=== PATIENT | female | born 1955 | race Caucasian/White ===

== ENCOUNTER 2019-11-23 09:40 | Outpatient (CLI) | payer BC, SELFPAY ==
--- NOTE | 2019-11-23 11:00 | NEURO_ITS ---
Patient Number: [id number] Impression: # Complains of bilateral hand paresthesia, left more than right. # No Carpal Tunnel Syndrome. # Left ulnar neuropathy across the elbow. # Normal needle/EMG exam. Nerve Conduction Studies Anti Sensory Summary Table Stim Site NR Peak (ms) P-T Amp (?V) Site1 Site2 Delta-P (ms) Dist (cm) Shawn (m/s) Left Median Anti Sensory (2-3nd Digit) Wrist 2.9 50.8 Wrist 2-3nd Digit 2.9 14.0 48 Wrist 3.1 68.8 Wrist 2-3nd Digit 2.9 14.0 48 Right Median Anti Sensory (2-3nd Digit) Wrist 2.8 45.3 Wrist 2-3nd Digit 2.8 14.0 50 Wrist 2.8 55.0 Wrist 2-3nd Digit 2.8 14.0 50 Left Radial Anti Sensory (Base 1st Digit) Wrist 2.2 13.0 Wrist Base 1st Digit 2.2 0.0 Right Radial Anti Sensory (Base 1st Digit) Wrist 2.2 11.3 Wrist Base 1st Digit 2.2 0.0 Left Ulnar Anti Sensory (5th Digit) Wrist 2.8 42.0 Wrist 5th Digit 2.8 14.0 50 Right Ulnar Anti Sensory (5th Digit) Wrist 2.9 58.6 Wrist 5th Digit 2.9 14.0 48 Motor Summary Table Stim Site NR Onset (ms) O-P Amp (mV) Site1 Site2 Delta-0 (ms) Dist (cm) Shawn (m/s) Left Median Motor (Abd Poll Brev) Wrist 3.5 2.2 Elbow Wrist 5.4 29.0 54 Elbow 8.9 1.9 Right Median Motor (Abd Poll Brev) Wrist 3.4 4.1 Elbow Wrist 4.7 27.0 57 Elbow 8.1 2.8 Left Ulnar Motor (Abd Dig Minimi) Wrist 2.7 7.0 A Elbow Wrist 5.7 28.0 49 A Elbow 8.4 5.5 B Elbow Wrist 3.7 21.0 57 B Elbow 6.4 5.0 Right Ulnar Motor (Abd Dig Minimi) Wrist 3.2 6.7 A Elbow Wrist 4.8 27.0 56 A Elbow 8.0 6.1 F Wave Studies NR F-Lat (ms) L-R F-Lat (ms) Left Median (Mrkrs) (Abd Poll Brev) 26.63 0.21 Right Median (Mrkrs) (Abd Poll Brev) 26.84 0.21 Left Ulnar (Mrkrs) (Abd Dig Min) 27.50 0.37 Right Ulnar (Mrkrs) (Abd Dig Min) 27.87 0.37 EMG Side Muscle Nerve Root Ins Act Fibs Amp Dur Recrt Comment Right 1stDorInt Ulnar C8-T1 Nml Nml Nml Nml Nml Right Ext Indicis Radial (Post Int) C7-8 Nml Nml Nml Nml Nml Right Ext Digitorum Radial (Post Int) C7-8 Nml Nml Nml Nml Nml Right BrachioRad Radial C5-6 Nml Nml Nml Nml Nml Right PronatorTeres Median C6-7 Nml Nml Nml Nml Nml Right Abd Poll Brev Median C8-T1 Nml Nml Nml Nml Nml Left 1stDorInt Ulnar C8-T1 Nml Nml Nml Nml Nml Left Ext Indicis Radial (Post Int) C7-8 Nml Nml Nml Nml Nml Left Ext Digitorum Radial (Post Int) C7-8 Nml Nml Nml Nml Nml Left BrachioRad Radial C5-6 Nml Nml Nml Nml Nml Left PronatorTeres Median C6-7 Nml Nml Nml Nml Nml Left Abd Poll Brev Median C8-T1 Nml Nml Nml Nml Nml MTDD
== END 2019-11-23 09:41 | disposition home or self-care (01) ==
PROVIDERS: PCP Internal Medicine; Visit Provider Psychiatry & Neurology Neurology
DX: R20.2 Paresthesia of skin (principal); G56.22 Lesion of ulnar nerve, left upper limb
CPT/HCPCS: 95886; 95911

== ENCOUNTER 2021-09-22 07:12 | Outpatient (CLI) | payer MEDICARE, SELFPAY ==
--- NOTE | ~2021-09-22 | NM_ITS ---
EXAMINATION: NM bone 3 phase DATE: 09/22/2021 10:25 INDICATION: Left knee pain. TECHNIQUE: 25 mCi Tc-99m HDP was administered intravenously. Scintigrams of the knees were obtained i n angiographic, blood pool, and delayed phases. COMPARISON: Left knee radiograph 09/22/21 FINDINGS: There are bilateral total knee arthroplasties. There is increased activity in the distal fe gracia, proximal tibiae, and left patella adjacent to the arthroplasties on the delayed phase images. IMPRESSION: 1. Increased activity in the knees adjacent to the arthroplasties, which is nonspecific and can be a normal finding or can be seen with loosening or infection. The left knee radiographs demonstrate no periprosthetic lucency to suggest loosening or infection. Reviewed, dictated and finalized at location A. IMPRESSION: 1. Increased activity in the knees adjacent to the arthroplasties, which is no nspecific and can be a normal finding or can be seen with loosening or infectio n. The left knee radiographs demonstrate no periprosthetic lucency to suggest l oosening or infection.
--- NOTE | ~2021-09-22 | XR_ITS ---
XR knee LT min 4V 09/22/2021 10:47 Indication: Left knee pain Procedure: 4 views left knee Comparison: No prior studies for comparison. Findings: There is a left total knee arthroplasty. Prosthesis well seated without evidence for loosen ing. No significant joint effusion. No acute fracture or traumatic malalignment. There is suggestion of heterotopic ossification along the posterior margin of the femur distally. Impression: 1: No acute bone or joint abnormality. Reviewed, dictated and finalized at location B. Impression: 1: No acute bone or joint abnormality.
== END 2021-09-22 07:13 | disposition home or self-care (01) ==
LOC: ANHIMG 07:21
PROVIDERS: PCP Internal Medicine
DX: M25.562 Pain in left knee (principal); T84.9XXA Unspecified complication of internal orthopedic prosthetic device, implant and graft, initial encounter
CPT/HCPCS: 73564; 78315; A9561

== ENCOUNTER 2021-09-24 13:46 | Outpatient (CLI) | payer MEDICARE, SELFPAY ==
--- NOTE | ~2021-09-24 | US_ITS ---
US venous doppler [facility] DATE: 09/24/2021 14:44 INDICATION: Left knee pain for 2 months TECHNIQUE: Real-time and color flow imaging and Doppler analysis COMPARISON: None FINDINGS: The greater saphenous vein is patent. There is spontaneous and phasic flow and normal augme ntation and color flow signal and normal compression of the deep veins of the left leg. IMPRESSION: No evidence of deep venous thrombosis of left leg Reviewed, dictated and finalized at Location A. Reviewed, dictated and finalized at location A.
== END 2021-09-24 13:47 | disposition home or self-care (01) ==
LOC: ANHIMG 13:47
PROVIDERS: PCP Internal Medicine
DX: M25.562 Pain in left knee (principal); G89.29 Other chronic pain; I83.893 Varicose veins of bilateral lower extremities with other complications
CPT/HCPCS: 93971

== ENCOUNTER 2022-06-08 06:26 | Emergency (ER) | payer MEDICARE, SELFPAY ==
--- NOTE | ~2022-06-08 | XR_ITS ---
XR chest 2V 06/08/2022 08:07 Indication: Shortness of breath with fever Procedure: PA and lateral views of the chest Comparison: 12/09/2015 Findings: Chronic elevation of the right diaphragm. Heart size normal. No focal air space disease, pu lmonary edema, pleural effusion or suspected pneumothorax. Impression: 1: No acute cardiopulmonary disease. Reviewed, dictated and finalized at location B. HOUSE WORKER Impression: 1: No acute cardiopulmonary disease.
[2022-06-08 06:30] VITALS: BP 183/95; PULSE 147; RESP 16; TEMP 39; O2SAT 100
[2022-06-08 07:00] VITALS: BP 163/94; PULSE 121; RESP 23; O2SAT 97
[2022-06-08 07:28] VITALS: BP 163/94; PULSE 123; RESP 18; O2SAT 96
[2022-06-08 07:32] LABS: Influenza A QL RT-PCR Negative (Negative); Influenza B QL RT-PCR Negative (Negative); SARS-CoV-2 RNA PCR Negative
[2022-06-08 07:58] LABS: Basophils Absolute Auto 0.1 K/mm3 (0.0-0.1); Basophils Percent Auto 0.9 % (0.2-1.2); Eosinophils Absolute Auto 0.1 K/mm3 (0-0.3); Eosinophils Percent Auto 0.5 % (0-4.4); Hematocrit 44.6 % (37.0-47.0); Hemoglobin 14.5 g/dL (12.0-15.0); Immature Granulocyte Absolute 0.06 K/mm3 (0.00-0.031); Immature Granulocyte Percent A 0.4 % (0-0.5); Lymphocytes Absolute Auto 1.36 K/mm3 (0.9-3.2); Mean Corpuscular HGB Conc 32.5 g/dl (32-36); Mean Corpuscular Volume 104.7 fl (80-100); Mean Platelet Volume 9.7 fl (7.4-10.4); Monocytes Absolute Auto 1.6 K/mm3 (0.1-0.6); Monocytes Percent Auto 11.8 % (2.6-8.5); Neutrophils Absolute Auto 10.4 K/mm3 (1.3-6.7); Neutrophils Percent Auto 76.4 % (45.5-73.1); Platelet Count Result 332 k/mm3 (150-375); Red Blood Count 4.26 M/mm3 (4.2-5.4); Red Cell Distribution Width 15.3 % (11.5-14.5); White Blood Count 13.6 K/mm3 (4.5-10.0)
[2022-06-08 08:06] LABS: Appearance Urine Clear (Clear); Bilirubin Urine Negative (Negative); Blood Urine Negative (Negative); Color Urine Yellow (Yellow); Glucose Urine UA Negative (Negative); Ketones Urine Negative (Negative); Leukocyte Esterase Ur Trace LEU/UL (Negative); Nitrate Urine Negative (Negative); Protein Urine Negative (Negative); Specific Grav Ur 1.015 (1.001-1.035); Urobilinogen Urine 0.2 mg/dL (<2.0); pH Urine 6.5 (5.0-9.0)
[2022-06-08] MEDS: SODIUM CHLORIDE 0.9% IV 1,000 ML 999 ML IV CONT (08:09)
[2022-06-08] MEDS: KETOROLAC 15 MG/ML VIAL (*BKC) IV PUSH (08:11)
[2022-06-08 08:13] VITALS: BP 137/88; PULSE 114; RESP 20; O2SAT 97
[2022-06-08 08:18] LABS: Add Urine Microscopic? NO
[2022-06-08 09:25] LABS: Alanine Aminotransferase 39 U/L (6-35); Albumin Level 4.1 g/dL (3.5-5.1); Alkaline Phosphatase 75 U/L (38-126); Anion Gap 1 mmol/L (8-16); Aspartate Amino Transferase 35 U/L (14-36); Bilirubin,Total 0.5 mg/dL (0.2-1.3); Blood Urea Nitrogen 8 mg/dL (7-17); Calcium 8.2 mg/dL (8.4-10.2); Carbon Dioxide 28 mmol/L (22-30); Chloride 109 mmol/L (98-107); Estimated CRCL calculation 75 ml/min; Estimated Glomerular Filt Rate > 60; Glucose 89 mg/dL (65-110); Lipase 108 U/L (23-300); Potassium 4.2 mmol/L (3.4-5.0); Sodium 138 mmol/L (137-145)
--- NOTE | 2022-06-08 10:16 | ED.FEVER ---
HPI - Fever General Chief Complaint: Fever Stated Complaint: body aches, fever that started today Time Seen by Provider: 06/08/22 07:01 History of Present Illness HPI Narrative: Patient is a 67-year-old female who presents ER with flulike symptoms. Patient woke up this morning with high fever of 105.0 ?F. She is having runny nose and sinus congestion. No cough. She has diffuse body aches. No numbness or tingling. No chest pain or chest pressure. Patient does report some shortness of breath. She also has exertional fatigue. Patient does reports mild throbbing headache temporal and frontal. [place] like she woke up with a migraine as well and took her home medication (ubrogepant). Related Data Home Medications Medication Instructions Recorded Confirmed aspirin 81 mg chewable tablet 81 mg PO DAILY 12/31/20 07/15/21 bimatoprost 0.01 % eye drops 1 drp EACH EYE DAILY 12/31/20 07/15/21 (Lumigan) diphenhydramine 25 1 tablet PO QHS PRN 12/31/20 07/15/21 mg-acetaminophen 500 mg tablet (Tylenol PM Extra Strength) esomeprazole magnesium 40 mg 40 mg PO DAILY 12/31/20 07/15/21 capsule,delayed release (Nexium) folic acid 1 mg tablet 1 mg PO DAILY 12/31/20 07/15/21 levothyroxine 100 mcg tablet 100 mcg PO DAILY 12/31/20 07/15/21 (Synthroid) linaclotide 290 mcg capsule 290 mcg PO DAILY 12/31/20 07/15/21 (Linzess) prednisone 5 mg tablet 5 mg PO BID 12/31/20 07/15/21 alendronate 70 mg tablet (Fosamax) 70 mg PO WEEKLY 07/02/21 07/15/21 atorvastatin 20 mg tablet 20 mg PO DAILY 07/02/21 07/15/21 calcium carb 300 mg-D3 800 1 tablet PO DAILY 07/02/21 07/15/21 unit-mag ox 25 mg-helicopter pilot 0.5 mg-bandar-Zn tablet (Caltrate + D3 Plus Minerals) gabapentin 100 mg capsule 100 mg PO BID 07/02/21 07/15/21 gabapentin 300 mg capsule 900 mg PO QHS 07/02/21 07/15/21 methotrexate sodium 2.5 mg tablet 25 mg PO WEEKLY 07/02/21 07/15/21 multivitamin 1 tablet PO DAILY 07/02/21 07/15/21 leflunomide 10 mg tablet 10 mg PO DAILY 01/27/22 magnesium 250 mg tablet 250 mg PO DAILY 01/27/22 tramadol 100 mg tablet,extended 100 mg PO DAILY 01/27/22 release 24 hr Allergies Allergy/AdvReac Type Severity Reaction Status Date / Time No Known Allergies Allergy Mild Verified 06/08/22 07:14 Review of Systems Review of Systems: All systems reviewed & are unremarkable except as noted in HPI and below Constitutional: Constitutional: Reports chills, Reports fatigue and Reports fever(s) ENT: Reports nasal congestion and Denies sore throat Comments: Positive rhinorrhea Cardiovascular: Cardiovascular: Denies chest pain and Denies radiating jaw, neck or arm pain Respiratory: Respiratory: Denies chest congestion, Denies cough, Reports dyspnea and Denies wheezing Gastrointestinal: Gastrointestinal: Denies abdominal pain, Denies nausea and Denies vomiting Integumentary/Breasts: Skin/Breast: Denies erythema and Denies rash Neurologic: Denies syncope, Reports headache(s), Denies focal weakness and Denies numbness PMFSH Past Medical History Medical History Acute rheumatic arthritis GERD (gastroesophageal reflux disease) Glaucoma High cholesterol Macular degeneration Larsen's neuroma left 2005 Osteoarthritis Surgical History Surgical History H/O breast augmentation 1988 H/O total knee replacement left 2010/ right 2008 History of total left knee replacement (~11/12/21) Hx of breast reduction, elective 1995 S/P cubital tunnel release S/P total abdominal hysterectomy (~04/19/00) ovarian cysts - BSO Family History Family History Father Heart disease Mother Heart disease Parkinson disease Sibling Heart disease Diabetes mellitus Hypertension Social History Social History Smoking status: Never smoker Alcohol intake: never Substan
[2022-06-08 10:50] VITALS: BP 128/81; PULSE 100; RESP 20; O2SAT 98
== END 2022-06-08 10:53 | disposition home or self-care (01) ==
PROVIDERS: Emergency Medicine; Emergency Provider Emergency Medicine; PCP Internal Medicine; Referring Provider Internal Medicine
DX: B34.9 Viral infection, unspecified (principal); Z20.822 Contact with and (suspected) exposure to COVID-19; M06.9 Rheumatoid arthritis, unspecified; E78.00 Pure hypercholesterolemia, unspecified; H40.9 Unspecified glaucoma; H35.30 Unspecified macular degeneration; K21.9 Gastro-esophageal reflux disease without esophagitis; M19.90 Unspecified osteoarthritis, unspecified site; Z79.82 Long term (current) use of aspirin; Z96.653 Presence of artificial knee joint, bilateral
CPT/HCPCS: 36415; 71046; 80053; 81003; 83690; 85025; 87636; 96361; 96374; 99284; J1885; J7030

== ENCOUNTER 2023-03-15 15:48 | Emergency (ER) | payer MEDICARE, SELFPAY ==
--- NOTE | ~2023-03-15 | CT_ITS ---
EXAMINATION: CT abdomen pelvis w con DATE: 03/15/2023 19:13 INDICATION: Right lower quadrant tenderness TECHNIQUE: Computed tomography (CT) of the abdomen and pelvis was performed with 100 mL Omnipaque-350 intravenous contrast. Automated exposure control and iterative reconstruction technique were employe d. The dose-length product was 358.72 mGy-cm. COMPARISON: None FINDINGS: Mild dependent atelectasis at the bilateral lung bases. Heart size is normal. Atherosclerotic coronar y artery calcifications. No pericardial or pleural effusion. Small sliding-type hiatal hernia. Common bile duct is dilated to 10 mm and there is mild central intrahepatic biliary ductal dilation. Liver is otherwise unremarkable. Gallbladder, spleen, pancreas, bilateral adrenal glands and kidneys are no rmal. Bowels including the appendix are normal. Bladder is distended but otherwise normal. The uterus is not identified and has likely been surgically resected. No free intraperitoneal gas or fluid. No pathologically enlarged abdominal or pelvic lymphadenopathy. Small fat-containing umbilical hernia. M ild S-shaped thoracolumbar scoliosis with moderate to severe spondylosis. IMPRESSION: 1. Mild intra and extra hepatic biliary ductal dilation without evident obstructing stone or mass and without the bladder dilation. Correlate with liver function tests and could consider further evaluat ion with MRCP as clinically indicated. 2. Small sliding-type hiatal hernia. 3. Small fat-containing umbilical hernia. Reviewed, dictated and finalized at location A. UP DRIVER IMPRESSION: 1. Mild intra and extra hepatic biliary ductal dilation without evident obstruc ting stone or mass and without the bladder dilation. Correlate with liver funct ion tests and could consider further evaluation with MRCP as clinically indicat ed. 2. Small sliding-type hiatal hernia. 3. Small fat-containing umbilical hernia.
[2023-03-15 15:56] VITALS: BP 130/93; PULSE 76; RESP 18; TEMP 36.2; O2SAT 97
[2023-03-15 16:08] LABS: Basophils Absolute Auto 0.1 K/mm3 (0.0-0.1); Basophils Percent Auto 1.2 % (0.2-1.2); Eosinophils Absolute Auto 0.1 K/mm3 (0-0.3); Eosinophils Percent Auto 0.8 % (0-4.4); Hematocrit 47.1 % (37.0-47.0); Hemoglobin 14.8 g/dL (12.0-15.0); Immature Granulocyte Absolute 0.06 K/mm3 (0.00-0.031); Immature Granulocyte Percent A 0.6 % (0-0.5); Lymphocytes Absolute Auto 2.76 K/mm3 (0.9-3.2); Lymphocytes Percent Auto 27.1 % (18.3-44.2); Mean Corpuscular HGB Conc 31.4 g/dl (32-36); Mean Corpuscular Hemoglobin 34.4 pg (26-34); Mean Corpuscular Volume 109.5 fl (80-100); Mean Platelet Volume 9.4 fl (7.4-10.4); Monocytes Absolute Auto 1.1 K/mm3 (0.1-0.6); Monocytes Percent Auto 10.8 % (2.6-8.5); Neutrophils Absolute Auto 6.1 K/mm3 (1.3-6.7); Neutrophils Percent Auto 59.5 % (45.5-73.1); Platelet Count Result 320 k/mm3 (150-375); Red Cell Distribution Width 13.9 % (11.5-14.5); White Blood Count 10.2 K/mm3 (4.5-10.0)
[2023-03-15 16:18] LABS: Alanine Aminotransferase 25 U/L (6-35); Albumin Level 4.6 g/dL (3.5-5.1); Alkaline Phosphatase 59 U/L (38-126); Anion Gap 7 mmol/L (8-16); Aspartate Amino Transferase 32 U/L (14-36); Bilirubin,Total 0.7 mg/dL (0.2-1.3); Blood Urea Nitrogen 10 mg/dL (7-17); Calcium 8.9 mg/dL (8.4-10.2); Carbon Dioxide 27 mmol/L (22-30); Chloride 99 mmol/L (98-107); Estimated CRCL calculation 64 ml/min; Estimated Glomerular Filt Rate > 60; Glucose 100 mg/dL (65-110); Lipase 152 U/L (23-300); Potassium 4.2 mmol/L (3.4-5.0); Sodium 133 mmol/L (137-145)
[2023-03-15 16:27] LABS: Macrocytosis 1+ (NORMAL); Platelet Estimate Adequate (Adequate); Schistocytes None Seen (NORMAL)
[2023-03-15 18:30] VITALS: BP 155/104; PULSE 112; RESP 18; O2SAT 98
--- NOTE | 2023-03-15 18:31 | ED.GENADULT ---
HPI - General Adult General Chief complaint: Abdominal Pain Stated complaint: hives/backache/abd tender Time Seen by Provider: 03/15/23 18:31 Source: patient Mode of arrival: ambulatory Limitations: no limitations History of Present Illness HPI narrative: This is a 67-year-old female with PMH of RA who presents to the ED with chief complaint right lower quadrant abdominal pain times 4-5 days and worse today. Reports pain 6/10 right now.. Reports the pain radiates somewhat around towards the right back/flank. Endorses nausea but no vomiting. Denies any problems with bowel movements or urination. Denies fevers, chills, chest pain, shortness of breath, cough, any further sites of pain. Additionally patient notes that she recently finished antibiotics for a sinus infection. She thought she was getting hives to the gave her some steroids and she is finishing the steroids as well. States her skin is still itchy. Reports she rarely receives infusions for RA and takes methotrexate as well for lupus symptoms. Related Data Home Medications Medication Instructions Recorded Confirmed aspirin 81 mg chewable tablet 81 mg PO DAILY 12/31/20 07/15/21 bimatoprost 0.01 % eye drops 1 drp EACH EYE DAILY 12/31/20 07/15/21 (Lumigan) diphenhydramine 25 1 tablet PO QHS PRN 12/31/20 07/15/21 mg-acetaminophen 500 mg tablet (Tylenol PM Extra Strength) esomeprazole magnesium 40 mg 40 mg PO DAILY 12/31/20 07/15/21 capsule,delayed release (Nexium) folic acid 1 mg tablet 1 mg PO DAILY 12/31/20 07/15/21 levothyroxine 100 mcg tablet 100 mcg PO DAILY 12/31/20 07/15/21 (Synthroid) linaclotide 290 mcg capsule 290 mcg PO DAILY 12/31/20 07/15/21 (Linzess) prednisone 5 mg tablet 5 mg PO BID 12/31/20 07/15/21 alendronate 70 mg tablet (Fosamax) 70 mg PO WEEKLY 07/02/21 07/15/21 atorvastatin 20 mg tablet 20 mg PO DAILY 07/02/21 07/15/21 calcium carb 300 mg-D3 20 mcg-mag 1 tablet PO DAILY 07/02/21 07/15/21 ox 25 mg-copy holder 0.5 [id number] tablet (Caltrate-D3 Plus Minerals) gabapentin 100 mg capsule 100 mg PO BID 07/02/21 07/15/21 gabapentin 300 mg capsule 900 mg PO QHS 07/02/21 07/15/21 methotrexate sodium 2.5 mg tablet 25 mg PO WEEKLY 07/02/21 07/15/21 multivitamin 1 tablet PO DAILY 07/02/21 07/15/21 leflunomide 10 mg tablet 10 mg PO DAILY 01/27/22 magnesium 250 mg tablet 250 mg PO DAILY 01/27/22 tramadol 100 mg tablet,extended 100 mg PO DAILY 01/27/22 release 24 hr esomeprazole magnesium 40 mg 40 mg PO DAILY 01/28/23 capsule,delayed release (Nexium) Allergies Allergy/AdvReac Type Severity Reaction Status Date / Time topiramate [From Topamax] AdvReac Confusion Verified 03/15/23 21:30 Review of Systems Review of Systems: All systems as dictated in [facility] Past Medical History Medical History Acute rheumatic arthritis GERD (gastroesophageal reflux disease) Glaucoma High cholesterol Macular degeneration Larsen's neuroma left 2005 Osteoarthritis Surgical History Surgical History H/O breast augmentation 1988 H/O total knee replacement left 2010/ right 2008 History of total left knee replacement (~11/12/21) Hx of breast reduction, elective 1995 S/P cubital tunnel release S/P total abdominal hysterectomy (~04/19/00) ovarian cysts - BSO Family History Family History Father Heart disease Mother Heart disease Parkinson disease Sibling Heart disease Diabetes mellitus Hypertension Social History Social History Smoking status: Never smoker Alcohol intake: never Substance use: never Substance use type: does not use Lack of Transportation: No Lack of Food: Never True Current Housing: I Have Housing Concerned About Future Housing: No Difficulty Payi
--- NOTE | 2023-03-15 18:37 | PC.NURSE ---
Pt unable to provide urine sample at this time
[2023-03-15 21:16] LABS: Appearance Urine Cloudy (Clear); Bacteria Urine 1+ /hpf; Bilirubin Urine Negative (Negative); Blood Urine Negative (Negative); Color Urine Yellow (Yellow); Glucose Urine UA Negative (Negative); Ketones Urine Trace mg/dL (Negative); Leukocyte Esterase Ur 3+ LEU/UL (Negative); Need Manual Microscopic Reviewed; Nitrate Urine Negative (Negative); Protein Urine Negative (Negative); RBC Urine 0-2 /hpf (0-2); Specific Grav Ur 1.016 (1.001-1.035); Squamous Epithelial Cell Urine None seen /hpf (Few); Urobilinogen Urine 0.2 mg/dL (<2.0); WBC Urine 51-100 /hpf; pH Urine 6.5 (5.0-9.0)
[2023-03-15 21:17] LABS: Add Urine Microscopic? YES
[2023-03-15 21:36] VITALS: BP 171/116; PULSE 99; RESP 16; O2SAT 95
[2023-03-15] MEDS: ONDANSETRON INJ 4 MG/2 ML VIAL IV PUSH (23:52)
[2023-03-15] MEDS: MORPHINE SULFATE (*CRX) 4 MG/ML INJ IV PUSH (23:53)
[2023-03-15] MEDS: SODIUM CHLORIDE 0.9% IV 1,000 ML 999 ML IV CONT (23:53)
[2023-03-16 00:02] VITALS: BP 172/104; PULSE 101; RESP 18; O2SAT 96
--- NOTE | 2023-03-16 00:05 | ED.ABDPAIN ---
HPI - Abdominal Pain General Chief Complaint: Abdominal Pain Stated Complaint: hives/backache/abd tender Time Seen by Provider: 03/15/23 18:31 Source: patient Mode of arrival: ambulatory Limitations: no limitations History of Present Illness HPI narrative: Patient is a 67-year-old female, past medical history of rheumatoid arthritis, who presents to the ED with right-sided abdominal pain. Patient reports having pain her right mid to lower abdomen for the last 3-4 days. Pain radiates around to her back. She does note that she xavi her back 4 days ago prior to the onset of this pain. Patient has been taking her home Mobile/tramadol for the pain which does provide some relief. Reports nausea and urinary frequency, denies vomiting, diarrhea, constipation, fevers, dysuria, hematuria. Related Data Home Medications Medication Instructions Recorded Confirmed aspirin 81 mg chewable tablet 81 mg PO DAILY 12/31/20 07/15/21 bimatoprost 0.01 % eye drops 1 drp EACH EYE DAILY 12/31/20 07/15/21 (Lumigan) diphenhydramine 25 1 tablet PO QHS PRN 12/31/20 07/15/21 mg-acetaminophen 500 mg tablet (Tylenol PM Extra Strength) esomeprazole magnesium 40 mg 40 mg PO DAILY 12/31/20 07/15/21 capsule,delayed release (Nexium) folic acid 1 mg tablet 1 mg PO DAILY 12/31/20 07/15/21 levothyroxine 100 mcg tablet 100 mcg PO DAILY 12/31/20 07/15/21 (Synthroid) linaclotide 290 mcg capsule 290 mcg PO DAILY 12/31/20 07/15/21 (Linzess) prednisone 5 mg tablet 5 mg PO BID 12/31/20 07/15/21 alendronate 70 mg tablet (Fosamax) 70 mg PO WEEKLY 07/02/21 07/15/21 atorvastatin 20 mg tablet 20 mg PO DAILY 07/02/21 07/15/21 calcium carb 300 mg-D3 20 mcg-mag 1 tablet PO DAILY 07/02/21 07/15/21 ox 25 mg-marble coper 0.5 [id number] tablet (Caltrate-D3 Plus Minerals) gabapentin 100 mg capsule 100 mg PO BID 07/02/21 07/15/21 gabapentin 300 mg capsule 900 mg PO QHS 07/02/21 07/15/21 methotrexate sodium 2.5 mg tablet 25 mg PO WEEKLY 07/02/21 07/15/21 multivitamin 1 tablet PO DAILY 07/02/21 07/15/21 leflunomide 10 mg tablet 10 mg PO DAILY 01/27/22 magnesium 250 mg tablet 250 mg PO DAILY 01/27/22 tramadol 100 mg tablet,extended 100 mg PO DAILY 01/27/22 release 24 hr esomeprazole magnesium 40 mg 40 mg PO DAILY 01/28/23 capsule,delayed release (Nexium) Allergies Allergy/AdvReac Type Severity Reaction Status Date / Time topiramate [From Topamax] AdvReac Confusion Verified 03/15/23 21:30 Review of Systems Review of Systems: CONSTITUTIONAL: Denies fever, chills, or sweats. CARDIOVASCULAR: Denies chest pain. RESPIRATORY: Denies dyspnea. GASTROINTESTINAL: See HPI. GENITOURINARY: See HPI. SKIN: Denies rash or itching. MUSCULOSKELETAL: Denies back pain, joint pain, or myalgia. All systems reviewed & are unremarkable except as noted in HPI and below PMFSH Past Medical History Medical History Acute rheumatic arthritis GERD (gastroesophageal reflux disease) Glaucoma High cholesterol Macular degeneration Larsen's neuroma left 2005 Osteoarthritis Surgical History Surgical History H/O breast augmentation 1988 H/O total knee replacement left 2010/ right 2008 History of total left knee replacement (~11/12/21) Hx of breast reduction, elective 1995 S/P cubital tunnel release S/P total abdominal hysterectomy (~04/19/00) ovarian cysts - BSO Family History Family History Father Heart disease Mother Heart disease Parkinson disease Sibling Heart disease Diabetes mellitus Hypertension Social History Social History Smoking status: Never smoker Alcohol intake: never Substance use: never Substance use type: does not use Lack of Transportation: No Lack of Food: Never True Cur
[2023-03-16 01:45] VITALS: BP 178/116; PULSE 103; RESP 20; O2SAT 96
== END 2023-03-16 01:45 | disposition home or self-care (01) ==
PROVIDERS: Emergency Medicine; Emergency Provider Physician Assistant; PCP Internal Medicine
DX: N30.00 Acute cystitis without hematuria (principal); K83.8 Other specified diseases of biliary tract; E78.00 Pure hypercholesterolemia, unspecified; H40.9 Unspecified glaucoma; H35.30 Unspecified macular degeneration; M06.9 Rheumatoid arthritis, unspecified; M19.90 Unspecified osteoarthritis, unspecified site; K21.9 Gastro-esophageal reflux disease without esophagitis; Z96.653 Presence of artificial knee joint, bilateral; Z90.710 Acquired absence of both cervix and uterus; Z90.722 Acquired absence of ovaries, bilateral; Z90.79 Acquired absence of other genital organ(s); Z79.82 Long term (current) use of aspirin
CPT/HCPCS: 36415; 74177; 80053; 81001; 83690; 85025; 87086; 87088; 96365; 96375; 99284; J0696; J2270; J2405; J7030; Q9967

== ENCOUNTER 2023-04-01 09:47 | Outpatient (CLI) | payer MEDICARE, SELFPAY ==
--- NOTE | ~2023-04-01 | US_ITS ---
Limited Abdominal Sonogram: Real-time sonographic imaging of the right upper quadrant was performed. Clinical History: Abdominal pain Findings: The liver appears normal with no evidence of mass lesion or bile duct dilatation. Main por memo vein demonstrates normal direction of flow. The gallbladder is well distended, and appears normal with no evidence of gallstone or wall thickening. The common bile duct measures 7 mm. The visualize d pancreas, aorta, and IVC are unremarkable. Impression: No significant abnormality seen. Reviewed, dictated and finalized at location . OADER OPERATOR Impression: No significant abnormality seen.
== END 2023-04-01 09:48 | disposition home or self-care (01) ==
PROVIDERS: PCP Internal Medicine; Visit Provider Internal Medicine
DX: R10.9 Unspecified abdominal pain (principal)
CPT/HCPCS: 76705

== ENCOUNTER 2023-04-29 01:42 | Day surgery (SDC) | payer MEDICARE, SELFPAY ==
[2023-04-22 09:47] VITALS: BMI 23.0
--- NOTE | 2023-04-27 10:18 | SUR.PREOP ---
Patient called regarding upcoming procedure. Reviewed preop instructions, appointment times, and procedure prep.
[2023-04-29 09:47] VITALS: BP 148/92; PULSE 90; RESP 18; TEMP 36.3; O2SAT 100; BMI 23.3
[2023-04-29] MEDS: LACTATED RINGERS 1,000 ML 150 ML IV CONT (09:50)
--- NOTE | 2023-04-29 10:13 | WPDHPUPDATE1 ---
History and Physical Update Update Date/Time: 04/29/23 10:13 History and Physical has been reviewed, including an updated exam of the patient. There are NO changes in the patient's condition. Risks, benefits, and alternatives have been discussed and questions answered. Patient agrees to proceed with procedure.
--- NOTE | 2023-04-29 10:19 | WPDANESEPPF ---
Anes - Initial Pre Proc Eval Procedure: Operation Date: 04/29/23 11:00 Proposed Procedures p Esophagogastroduodenoscopy - Sacha Lind MD Date/Time: 04/29/23 10:19 Surgeon: Sacha Lind MD Pre Op Diagnosis: GERD,Right upper quadrant pain Patient Data Age: 68 Gender: F Height: 1.6 m Weight: 59.6 kg Last Vital Signs Temp 97.3 F L 04/29/23 09:47 Pulse 90 04/29/23 09:47 Resp 18 04/29/23 09:47 BP 148/92 H 04/29/23 09:47 Pulse Ox 100 04/29/23 09:47 O2 Del Method Room Air 04/29/23 09:47 Allergies Allergy/AdvReac Type Severity Reaction Status Date / Time topiramate [From Topamax] AdvReac Confusion Verified 04/29/23 09:44 Home Medications Medication Instructions Recorded Confirmed Type aspirin 81 mg chewable tablet 81 mg PO DAILY 12/31/20 04/29/23 History bimatoprost 0.01 % eye drops 1 drp EACH EYE DAILY 12/31/20 04/29/23 History (Lumigan) diphenhydramine 25 1 tablet PO QHS PRN Pain 12/31/20 04/29/23 History mg-acetaminophen 500 mg tablet (Tylenol PM Extra Strength) folic acid 1 mg tablet 1 mg PO DAILY 12/31/20 04/29/23 History levothyroxine 100 mcg tablet 100 mcg PO DAILY 12/31/20 04/29/23 History (Synthroid) linaclotide 290 mcg capsule 290 mcg PO DAILY 12/31/20 04/29/23 History (Linzess) prednisone 5 mg tablet 5 mg PO BID 12/31/20 04/29/23 History cyclobenzaprine 10 mg tablet 10 mg PO TID #90 tabs 01/15/21 04/29/23 Rx temazepam 15 mg capsule 30 mg PO QHS PRN sleep #60 caps 03/07/21 04/29/23 Rx hydrocodone 10 mg-acetaminophen 1 tablet PO Q8H PRN pain (scale 03/25/21 04/29/23 Rx 325 mg tablet score 7-10) #85 tabs ubrogepant 100 mg tablet (Ubrelvy) 100 mg PO ONCE #10 tabs 06/02/21 04/29/23 Rx alendronate 70 mg tablet (Fosamax) 70 mg PO WEEKLY 07/02/21 04/29/23 History atorvastatin 20 mg tablet 20 mg PO DAILY 07/02/21 04/29/23 History calcium carb 300 mg-D3 20 mcg-mag 1 tablet PO DAILY 07/02/21 04/29/23 History ox 25 mg-copy worker 0.5 [id number] tablet (Caltrate-D3 Plus Minerals) gabapentin 100 mg capsule 100 mg PO BID 07/02/21 04/29/23 History gabapentin 300 mg capsule 900 mg PO QHS 07/02/21 04/29/23 History methotrexate sodium 2.5 mg tablet 25 mg PO WEEKLY 07/02/21 04/29/23 History multivitamin 1 tablet PO DAILY 07/02/21 04/29/23 History leflunomide 10 mg tablet 10 mg PO DAILY 01/27/22 04/29/23 History magnesium 250 mg tablet 250 mg PO BID 01/27/22 04/29/23 History tramadol 100 mg tablet,extended 100 mg PO TID 01/27/22 04/29/23 History release 24 hr esomeprazole magnesium 40 mg 40 mg PO DAILY 01/28/23 04/29/23 History capsule,delayed release (Nexium) esomeprazole magnesium 40 mg 40 mg PO DAILY 04/22/23 04/29/23 History capsule,delayed release (Nexium) Patient hx anesthesia problems: none Family hx anesthesia problems: none Results Review: All pre-operative results and documents have been reviewed as part of the pre-operative evaluation. [facility] Past Medical History Medical History (Updated 04/20/23 @ 15:36 by AYESHA YapN-C) Abnormal CT scan Acute rheumatic arthritis GERD (gastroesophageal reflux disease) Glaucoma High cholesterol Macular degeneration Larsen's neuroma left 2005 Osteoarthritis Rheumatoid arthritis Right upper quadrant pain Surgical History Surgical History H/O breast augmentation 1988 H/O total knee replacement left 2010/ right 2008 History of total left knee replacement (~11/12/21) Hx of breast reduction, elective 1995 S/P cubital tunnel release S/P total abdominal hysterectomy (~04/19/00) ovarian cysts - BSO Family History Family History Father Heart disease Mother Heart disease Parkinson disease Sibling Heart disease Diabetes mellitus Hypertension Social History Social History Smoking status: N
[2023-04-29] MEDS: BENZOCAINE (*SP) 60 ML SPRAY CAN (HURRICAINE) 1 SPRAY MUCOUS MEM (10:23)
[2023-04-29 10:31] VITALS: BP 168/99; PULSE 92; RESP 22; O2SAT 100
[2023-04-29 10:41] VITALS: BP 141/97; PULSE 90; RESP 18; O2SAT 100
[2023-04-29 10:51] VITALS: BP 150/87; PULSE 71; RESP 21; O2SAT 99
== END 2023-04-29 11:01 | disposition home or self-care (01) ==
PROVIDERS: PCP Internal Medicine; Visit Provider Internal Medicine Gastroenterology
PROC: 0DJ08ZZ Inspection of Upper Intestinal Tract, Via Natural or Artificial Opening Endoscopic (ICD-10-PCS; CPT 43235; principal; 2023-04-29 11:00)
DX: K29.60 Other gastritis without bleeding (principal); K21.9 Gastro-esophageal reflux disease without esophagitis; E78.00 Pure hypercholesterolemia, unspecified; H35.30 Unspecified macular degeneration; Z79.82 Long term (current) use of aspirin; Z79.891 Long term (current) use of opiate analgesic; Z82.49 Family history of ischemic heart disease and other diseases of the circulatory system
CPT/HCPCS: 43239; 88305; J2704; J7120

== ENCOUNTER 2023-05-05 07:22 | Outpatient (CLI) | payer MEDICARE, SELFPAY ==
--- NOTE | ~2023-05-05 | MR_ITS ---
EXAMINATION: MR MRCP wo/w con/w 3D wo ind DATE: 05/05/2023 08:57 INDICATION: Abdominal pain. Internal and extra hepatic biliary ductal dilation on prior CT. TECHNIQUE: Magnetic resonance imaging (MRI) of the abdomen was performed without and with 12 mL Multi angelina intravenous contrast. Sequences included coronal T2-weighted SS-FSE, coronal T2-weighted FS SS- FSE, coronal T2-weighted FS FIESTA, axial T2-weighted FS FIESTA, axial T2-weighted FIESTA, sagittal T 2-weighted SS-FSE, axial T1-weighted dual-echo FSPGR, axial T2-weighted SS-FSE, axial T1-weighted LAV A, axial T2-weighted STIR FSE. Thick-slab T2-weighted FRFSE-XL images were obtained for magnetic reso nance cholangiopancreatography (MRCP). Rotating maximum intensity projection 3-D reconstructions of t he volumetric data were created by the technologist. Postcontrast sequences included a time course of axial T1-weighted LAVA. COMPARISON: CT dated 03/15/2023 and ultrasound dated 04/01/2023 FINDINGS: ABDOMEN MRI: Heart size is normal. No pericardial or pleural effusion. Liver, gallbladder, spleen, pa ncreas, bilateral adrenal glands and kidneys are normal. Visualized portions of bowels are normal. No pathologically enlarged abdominal or upper pelvic lymphadenopathy. Small fat-containing umbilical he rnia. Mild S-shaped thoracolumbar scoliosis with with moderate to severe spondylosis. ABDOMEN MRCP: The proximal common bile duct is minimally dilated to 8 mm and measures 6 mm the distal duct with tap ers relatively abruptly but with smooth mucosal margins and without evident obstructing stone or mass . No evident choledocholithiasis. No intrahepatic biliary ductal dilation. The main pancreatic duct i s also normal. IMPRESSION: 1. Minimal dilation of the proximal common bile duct without intrahepatic biliary ductal dilation, ch oledocholithiasis or other obstructing lesion. Reviewed, dictated and finalized at location A. GER BUSINESS MANAGEMENT IMPRESSION: 1. Minimal dilation of the proximal common bile duct without intrahepatic bilia ry ductal dilation, choledocholithiasis or other obstructing lesion.
== END 2023-05-05 07:23 | disposition home or self-care (01) ==
PROVIDERS: PCP Internal Medicine; Visit Provider Nurse Practitioner Family
DX: K83.8 Other specified diseases of biliary tract (principal)
CPT/HCPCS: 74183; 76376; A9577

== ENCOUNTER 2023-06-18 08:57 | Outpatient (CLI) | payer MEDICARE, SELFPAY ==
--- NOTE | ~2023-06-18 | NM_ITS ---
. EXAMINATION: NM hepatobiliary wo pharm DATE: 06/18/2023 11:37 INDICATION: Right upper quadrant abdominal pain. COMPARISON: MRCP 05/05/23 TECHNIQUE: 5.3 mCi Tc-99m mebrofenin (Choletec) was administered intravenously. Scintigraphic images of the abdomen were obtained for one hour. Then, the patient drank 8 oz Ensure, and imaging was cont inued for 60 minutes. FINDINGS: There is normal clearance of radiotracer from the blood pool. There is homogeneous tracer u ptake by the liver. Activity progresses to the bowel and gallbladder. Gallbladder ejection fraction (GBEF) was 45%. Note that with this technique, normal GBEF >= 33%. IMPRESSION: 1. Normal hepatobiliary scintigraphy. Reviewed, dictated and finalized at location A. BPM ARCHITECT
== END 2023-06-18 08:58 | disposition home or self-care (01) ==
LOC: ANHIMG 08:59
PROVIDERS: PCP Internal Medicine; Visit Provider Nurse Practitioner Family
DX: R10.11 Right upper quadrant pain (principal)
CPT/HCPCS: 78226; A9537

== ENCOUNTER 2024-01-17 15:57 | Observation (INO) | payer MEDICARE, SELFPAY ==
--- NOTE | ~2024-01-17 | CT_ITS ---
CT soft tiss nk chst ab pel w Ordering provider: [facility] History: 68 years Female with . Sepsis . Comparison: March 15, 2023 Technique: CT soft tissues neck and chest was performed with contrast. Radiation reduction technique utilized.The dose-length product was 681 mGy-cm. 100 mL Omnipaque 350 was given IV. Findings: NECK: LOWER HEAD: The visualized brain parenchyma, optic globes/orbits and mastoids are normal. Bilateral sphenoid sinus disease most on the left side with complete opacification of the left. SALIVARY GLANDS: Normal. THYROID: Enlarged Right lobe with a nodule measuring 1.6 cm.. DEEP SPACES: Normal. CAROTID ARTERIES: Bilateral carotid atherosclerotic changes. JUGULAR VEINS: Left jugular vein is not seen proximally. TONSILS: Normal. ORAL CAVITY: Partially obscured by dental amalgam but normal as visualized. PHARYNX, LARYNX AND TRACHEA: Patent and normal. No prevertebral soft tissue swelling. SUPERFICIAL SOFT TISSUES: Normal. No lymphadenopathy or neck mass. SKELETAL: Postoperative changes in the lower cervical area. Age appropriate degenerative changes. CHEST: MEDIASTINUM: Aorta: Mild atheromatous disease. Coronary arteries: Mild atheromatous disease. Heart/other: The heart is slightly enlarged. Lymph nodes: No mediastinal or hilar adenopathy. LUNGS: Dependent atelectatic changes. No pulmonary nodules or masses. No infiltrates or effusions. No pneumothorax. MUSCULOSKELETAL: Soft tissues: The superficial soft tissues are normal. Bones: Age appropriate degenerative changes of the spine. IMPRESSION: Right thyroid nodule. Bilateral sphenoid sinusitis more on the left side. Bilateral carotid calcifications. Markedly attenuated proximal left internal jugular vein. No acute cardiopulmonary pathology. CT soft tiss nk chst ab pel w Ordering provider: [facility] History: 68 years Female with . Sepsis . Comparison: None. Technique: CT abdomen and pelvis with IV and without oral contrast. Automated exposure control and it erative reconstruction technique were employed. The dose-length product was 910.82 mGy-cm. 100 mL Omn ipaque 350 was given IV. Findings: UPPER ABDOMINAL ORGANS: Liver: Normal. Gallbladder: Normal. Spleen: Normal. Stomach/duodenum: Slightly thickened wall. Clinical evaluation advised. Pancreas: Normal. Slightly prominent pancreatic duct. Adrenals: Normal. Kidneys: Normal. PELVIC ORGANS: The bladder is normal. BOWEL AND MESENTERY: Colon: No evidence of diverticulitis. Normal appendix. Small Bowel: Normal. No obstruction. Peritoneum/mesentery: No free air or free fluid. No mesenteric lymphadenopathy. RETROPERITONEUM: Mild atheromatous disease of the abdominal aorta. Distal aorta measures 2.3 cm. No retroperitoneal lymphadenopathy. MUSCULOSKELETAL: Superficial soft tissues: The superficial soft tissues are normal. Bones: Age appropriate degenerative changes of the spine. IMPRESSION: 1. No acute abdominal process with no evidence of appendicitis, diverticulitis or intestinal obstruc tion. 2. Slightly prominent pancreatic duct. Follow-up advised. 3. Focal dilatation of the distal aorta measuring 2.3 cm. 4. Slightly thickened wall of the stomach. Clinical correlation advised. Reviewed, dictated and finalized at location A.
--- NOTE | ~2024-01-17 | XR_ITS ---
EXAMINATION: XR chest 2V Exam Date/Time: 01/17/2024 20:10 CDT HISTORY: tachycardia Comparison: 06/08/2022. RESULT: Lines, tubes, and devices: ACDF hardware. Lungs and pleura: Clear. Cardiomediastinal silhouette: Stable. Other: No acute osseous or upper abdominal finding. IMPRESSION: No acute cardiopulmonary process. Reviewed, dictated and finalized at location K.
--- NOTE | ~2024-01-17 | XR_ITS ---
XR chest 2V Ordering provider: Jennifer Le MD History: 68 years Female with . pneumonia now rehydrated . Comparison: December 31, 2023 FINDINGS: MEDIASTINUM: The cardiac silhouette is not enlarged. LUNGS: No infiltrates, effusions or pneumothorax. OTHER: No free air under the diaphragm. Dextroscoliosis. Postoperative changes in the lower cervical area. IMPRESSION: No acute cardiopulmonary pathology. Reviewed, dictated and finalized at location A.
[2024-01-17 15:57] VITALS: BP 139/88; PULSE 157; RESP 20; TEMP 36.6; O2SAT 99
--- NOTE | 2024-01-17 17:18 | ECG_ITS ---
Test Date: 2024-01-17 17:23:01 Measurements Intervals [place] Rate: 151 P: 0 ID: 0 QRS: 13 QRSD: 80 T: -1 QT: 275 QTc: 437 Interpretive Statements ATRIAL FLUTTER/TACHYCARDIA WITH RAPID VENTRICULAR RESPONSE ANTEROSEPTAL INFARCT, AGE INDETERMINATE NONSPECIFIC ST & T-WAVE ABNORMALITY- ANTEROLAT/INF LEADS BASELINE ARTIFACT- I, II, AVR, AVL ABNORMAL ECG No previous ECG available for comparison Electronically Signed On 01-17-2024 17:41:34 CDT by Arnold García D.O.
--- NOTE | 2024-01-17 17:19 | ED.GENADULT ---
HPI - General Adult General Chief complaint: Unspecified Stated complaint: ST, earache Time Seen by Provider: 01/17/24 17:19 Focused HPI: This is a 68 year old female that presents to the ER for sore throat and earache. This has been ongoing over the last couple of weeks. She has been on several rounds of antibiotics with little relief. Patient's heart rate noted to be elevated. She does report she feels like her heart is racing. Denies chest pain or shortness of breath. GENERAL: Well-appearing, well-nourished, and in no acute distress. HEAD: Normocephalic, atraumatic. CHEST: Clear to auscultation. ?No respiratory distress. HEART: Regular rhythm, tachycardic NEURO: ?Alert and oriented x3. Patient screened in triage and initial orders placed.? ?Additional care and disposition to be based upon?diagnostic testing and treatment. Related Data Home Medications Medication Instructions Recorded Confirmed aspirin 81 mg chewable tablet 81 mg PO DAILY 12/31/20 07/13/23 bimatoprost 0.01 % eye drops 1 drp EACH EYE DAILY 12/31/20 07/13/23 (Lumigan) diphenhydramine 25 1 tablet PO QHS PRN Pain 12/31/20 07/13/23 mg-acetaminophen 500 mg tablet (Tylenol PM Extra Strength) folic acid 1 mg tablet 1 mg PO DAILY 12/31/20 07/13/23 levothyroxine 100 mcg tablet 100 mcg PO DAILY 12/31/20 07/13/23 (Synthroid) linaclotide 290 mcg capsule 290 mcg PO DAILY 12/31/20 07/13/23 (Linzess) prednisone 5 mg tablet 5 mg PO BID 12/31/20 07/13/23 alendronate 70 mg tablet (Fosamax) 70 mg PO WEEKLY 07/02/21 07/13/23 atorvastatin 20 mg tablet 20 mg PO DAILY 07/02/21 07/13/23 calcium 300 mg-D3 20 mcg-magnesium 1 tablet PO DAILY 07/02/21 07/13/23 25 mg-coppr 0.5 [id number] tablet (Caltrate-D3 Plus Minerals) gabapentin 100 mg capsule 100 mg PO BID 07/02/21 07/13/23 gabapentin 300 mg capsule 900 mg PO QHS 07/02/21 07/13/23 methotrexate sodium 2.5 mg tablet 25 mg PO WEEKLY 07/02/21 07/13/23 multivitamin 1 tablet PO DAILY 07/02/21 07/13/23 leflunomide 10 mg tablet 10 mg PO DAILY 01/27/22 07/13/23 magnesium 250 mg tablet 250 mg PO BID 01/27/22 07/13/23 tramadol 100 mg tablet,extended 100 mg PO TID 01/27/22 07/13/23 release 24 hr esomeprazole magnesium 40 mg 40 mg PO DAILY 01/28/23 07/13/23 capsule,delayed release (Nexium) Allergies Allergy/AdvReac Type Severity Reaction Status Date / Time topiramate [From Topamax] AdvReac Confusion Verified 07/13/23 12:44 [facility] Past Medical History Medical History (Updated 07/13/23 @ 13:28 by NILESH Yap) Abnormal CT scan Acute rheumatic arthritis Common bile duct dilatation GERD (gastroesophageal reflux disease) Glaucoma High cholesterol Macular degeneration Larsen's neuroma left 2005 Osteoarthritis Rheumatoid arthritis Right upper quadrant pain Surgical History Surgical History H/O breast augmentation 1988 H/O total knee replacement left 2010/ right 2008 History of total left knee replacement (~11/12/21) Hx of breast reduction, elective 1995 S/P cubital tunnel release S/P total abdominal hysterectomy (~04/19/00) ovarian cysts - BSO Family History Family History Father Heart disease Mother Heart disease Parkinson disease Sibling Heart disease Diabetes mellitus Hypertension Social History Social History Smoking status: Never smoker Alcohol intake: never Substance use: never Substance use type: does not use Lack of Transportation: No Lack of Food: Never True Current Housing: I Have Housing Concerned About Future Housing: No Difficulty Paying Gas/Electric Bills: No Difficulty Paying for Meds: No Currently Unemployed: No Education: High School Diploma/GED Difficulty w/ Childcare or Family Care: No Living arrangements: with family Additional living arrangements comments:
--- NOTE | 2024-01-17 17:49 | ED.GENADULT ---
HPI - General Adult General Chief complaint: Unspecified Stated complaint: ST, earache Time Seen by Provider: 01/17/24 17:19 History of Present Illness HPI narrative: Pt presents with sore throat and bilateral ear pain for 5 weeks. Pt noted in triage to have HR of 150 and be in a flutter with rvr. Pt denies CP or SOB. Pt denies abdominal pain. Pt has no fever or RUIZ or dysuria or frequency. Related Data Home Medications Medication Instructions Recorded Confirmed aspirin 81 mg chewable tablet 81 mg PO DAILY 12/31/20 07/13/23 bimatoprost 0.01 % eye drops 1 drp EACH EYE DAILY 12/31/20 07/13/23 (Lumigan) diphenhydramine 25 1 tablet PO QHS PRN Pain 12/31/20 07/13/23 mg-acetaminophen 500 mg tablet (Tylenol PM Extra Strength) folic acid 1 mg tablet 1 mg PO DAILY 12/31/20 07/13/23 levothyroxine 100 mcg tablet 100 mcg PO DAILY 12/31/20 07/13/23 (Synthroid) linaclotide 290 mcg capsule 290 mcg PO DAILY 12/31/20 07/13/23 (Linzess) prednisone 5 mg tablet 5 mg PO BID 12/31/20 07/13/23 alendronate 70 mg tablet (Fosamax) 70 mg PO WEEKLY 07/02/21 07/13/23 atorvastatin 20 mg tablet 20 mg PO DAILY 07/02/21 07/13/23 calcium 300 mg-D3 20 mcg-magnesium 1 tablet PO DAILY 07/02/21 07/13/23 25 mg-coppr 0.5 [id number] tablet (Caltrate-D3 Plus Minerals) gabapentin 100 mg capsule 100 mg PO BID 07/02/21 07/13/23 gabapentin 300 mg capsule 900 mg PO QHS 07/02/21 07/13/23 methotrexate sodium 2.5 mg tablet 25 mg PO WEEKLY 07/02/21 07/13/23 multivitamin 1 tablet PO DAILY 07/02/21 07/13/23 leflunomide 10 mg tablet 10 mg PO DAILY 01/27/22 07/13/23 magnesium 250 mg tablet 250 mg PO BID 01/27/22 07/13/23 tramadol 100 mg tablet,extended 100 mg PO TID 01/27/22 07/13/23 release 24 hr esomeprazole magnesium 40 mg 40 mg PO DAILY 01/28/23 07/13/23 capsule,delayed release (Nexium) Allergies Allergy/AdvReac Type Severity Reaction Status Date / Time topiramate [From Topamax] AdvReac Confusion Verified 07/13/23 12:44 Review of Systems Review of Systems: All systems reviewed & are unremarkable except as noted in HPI and below PMFSH Past Medical History Medical History (Updated 01/17/24 @ 18:53 by Aicha Rocha III, DO) Abnormal CT scan Acute rheumatic arthritis Common bile duct dilatation GERD (gastroesophageal reflux disease) Glaucoma High cholesterol Macular degeneration Larsen's neuroma left 2005 Osteoarthritis Rheumatoid arthritis Right upper quadrant pain Surgical History Surgical History H/O breast augmentation 1988 H/O total knee replacement left 2010/ right 2008 History of total left knee replacement (~11/12/21) Hx of breast reduction, elective 1995 S/P cubital tunnel release S/P total abdominal hysterectomy (~04/19/00) ovarian cysts - BSO Family History Family History Father Heart disease Mother Heart disease Parkinson disease Sibling Heart disease Diabetes mellitus Hypertension Social History Social History Smoking status: Never smoker Alcohol intake: never Substance use: never Substance use type: does not use Lack of Transportation: No Lack of Food: Never True Current Housing: I Have Housing Concerned About Future Housing: No Difficulty Paying Gas/Electric Bills: No Difficulty Paying for Meds: No Currently Unemployed: No Education: High School Diploma/GED Difficulty w/ Childcare or Family Care: No Living arrangements: with family Additional living arrangements comments: spouse Occupation/Education: other Additional occupation/education comments: house / disability Gender identity (if verbalized by the patient): Female Sexual Orientation (if Verbalized by the Patient): Straight or Heterosexual Spiritual care concerns: No Exam Const: General: healthy appearing and no
--- NOTE | 2024-01-17 18:02 | ECG_ITS ---
Test Date: 2024-01-17 19:48:27 Measurements Intervals [place] Rate: 99 P: 30 TX: 146 QRS: 4 QRSD: 82 T: 12 QT: 328 QTc: 422 Interpretive Statements SINUS RHYTHM LOW QRS VOLTAGE IN PRECORDIAL LEADS ANTEROSEPTAL INFARCT, AGE INDETERMINATE ABNORMAL ECG Compared to ECG 01/17/2024 17:23:01 Atrial flutter no longer present Electronically Signed On 01-17-2024 19:59:13 CDT by Arnold García D.O.
[2024-01-17] MEDS: SODIUM CHLORIDE 0.9% IV 500 ML 999 ML IV CONT (18:06)
[2024-01-17 18:15] VITALS: BP 132/86; PULSE 104; RESP 16; O2SAT 98
[2024-01-17 18:21] LABS: Basophils Absolute Auto 0.1 K/mm3 (0.0-0.1); Basophils Percent Auto 0.8 % (0.2-1.2); Eosinophils Percent Auto 0.1 % (0-4.4); Hematocrit 44.6 % (37.0-47.0); Hemoglobin 14.8 g/dL (12.0-15.0); Immature Granulocyte Absolute 0.08 K/mm3 (0.00-0.031); Immature Granulocyte Percent A 0.6 % (0-0.5); Lymphocytes Absolute Auto 1.84 K/mm3 (0.9-3.2); Lymphocytes Percent Auto 13.5 % (18.3-44.2); Mean Corpuscular HGB Conc 33.2 g/dl (32-36); Mean Corpuscular Hemoglobin 34.8 pg (26-34); Mean Corpuscular Volume 104.9 fl (80-100); Mean Platelet Volume 9.6 fl (7.4-10.4); Monocytes Absolute Auto 0.9 K/mm3 (0.1-0.6); Monocytes Percent Auto 6.3 % (2.6-8.5); Neutrophils Absolute Auto 10.8 K/mm3 (1.3-6.7); Neutrophils Percent Auto 78.7 % (45.5-73.1); Platelet Count Result 387 k/mm3 (150-375); Red Blood Count 4.25 M/mm3 (4.2-5.4); Red Cell Distribution Width 13.9 % (11.5-14.5); White Blood Count 13.7 K/mm3 (4.5-10.0)
[2024-01-17 18:31] LABS: Prothrombin Time 13.4 Seconds (11.1-14.7)
[2024-01-17 18:32] LABS: Partial Thromboplastin Time 24.5 Seconds (22.3-36.8)
[2024-01-17 18:34] LABS: Alanine Aminotransferase 25 U/L (6-35); Albumin Level 4.6 g/dL (3.5-5.1); Alkaline Phosphatase 67 U/L (38-126); Anion Gap 8 mmol/L (4-12); Aspartate Amino Transferase 32 U/L (14-36); Bilirubin,Total 0.6 mg/dL (0.2-1.3); Blood Urea Nitrogen 10 mg/dL (7-17); Carbon Dioxide 28 mmol/L (22-30); Chloride 100 mmol/L (98-107); Estimated CRCL calculation 63 ml/min; Estimated Glomerular Filt Rate > 60; Glucose 100 mg/dL (65-110); Potassium 4.3 mmol/L (3.4-5.0); Sodium 136 mmol/L (137-145)
[2024-01-17 18:45] LABS: Troponin I < 0.012 ng/mL (0.000-0.034)
[2024-01-17 18:47] LABS: Strep Group A RT-PCR NOT DETECTED (Negative)
[2024-01-17 18:59] LABS: Influenza A QL RT-PCR Negative (Negative); Influenza B QL RT-PCR Negative (Negative); RSV RNA, RT-PCR Negative (Negative); SARS-CoV-2 RNA PCR Negative (Negative)
[2024-01-17 19:08] LABS: Thyroid Stimulating Hormone Reflex 0.147 uIU/mL (0.465-4.68)
[2024-01-17 19:47] VITALS: BP 165/94; PULSE 104; RESP 20; O2SAT 99
[2024-01-17 19:48] LABS: Free T4 Free Thyroxine Reflex 1.95 ng/dL (0.78-2.19)
[2024-01-17 20:30] LABS: Magnesium 2.6 mg/dL (1.6-2.3); Total Triiodothyronine (T3) 1.38 NG/ML (0.97-1.69)
[2024-01-17] MEDS: SODIUM CHLORIDE 0.9% IV 1,000 ML 999 ML IV CONT (21:27)
[2024-01-17] MEDS: SODIUM CHLORIDE 0.9% IV 1,000 ML 100 ML IV CONT ×2 (21:27→23:03)
[2024-01-17 21:29] VITALS: BP 155/97; PULSE 96; RESP 21; TEMP 36.5; O2SAT 97
[2024-01-17 23:03] VITALS: BP 154/90; PULSE 97; RESP 20; TEMP 36.2; O2SAT 100
[2024-01-18] VITALS (14 sets, daily range): BP systolic 119–171; BP diastolic 73–99; PULSE 71–117; RESP 16–25; TEMP 36.2–36.6; O2SAT 93–100
--- NOTE | 2024-01-18 | ECHO_ITS ---
Patient Info Name: Gasper Frausto Age: 68 years : 1955 Gender: Female Ht: 63 in Wt: 121 lbs BSA: 1.56 m2 HR: 71 bpm BP: 134 / 89 mmHg Technical Quality: Fair Exam Date: 01/18/2024 1:49 PM Exam Location: Echo Lab Patient Status: Outpatient Admit Date: 01/17/2024 Staff Ordering Physician: Manisha Booth DO Employment Recruiter: Alyssa Harrison RDCS Attending Provider: Fabio Walker MD Referring Physician: Leobardo SU; Exam Type: CA echo doppler color flow Study Info Indications I49.9 - Cardiac arrhythmia, unspecified R00.0 - Tachycardia, unspecified Complete two-dimensional, color flow and Doppler transthoracic echocardiogram is performed. Summary 1. Complete two-dimensional, color flow and Doppler transthoracic echocardiogram is performed. 2. The left ventricle size and systolic function is normal. The LVEF is estimated to be 50-55%. 3. The right ventricle is normal size with normal systolic function. Left Ventricle The left ventricle size and systolic function is normal. The LVEF is estimated to be 50-55%. Right Ventricle The right ventricle is normal size with normal systolic function. Left Atria Left atrial chamber dimension is normal. Right Atria Right atrial chamber dimension is normal. Aortic Valve The aortic valve is trileaflet and sclerotic. There is trace aortic regurgitation. Pulmonic Valve The pulmonic valve is normal. There is trace pulmonic valve regurgitation. Mitral Valve The mitral valve is sclerotic. There is mild mitral regurgitation. Tricuspid Valve The tricuspid valve is normal. There is trace tricuspid valve regurgitation. Inferior Vena Cava Inferior vena cava is not well visualized. Left Ventricular Outflow Tract Name Value Normal LVOT 2D LVOT Diameter 2.0 cm LVOT Doppler LVOT Peak Gradient 3 mmHg LVOT Mean Gradient 2 mmHg LVOT VTI 13 cm LVOT VTI/AV VTI Ratio 0.9 LVOT Stroke Volume 40 ml LVOT CO 3.8 l/min LVOT CI 2.4 l/min/m2 Pulmonic Valve Name Value Normal PV Doppler PV Peak Gradient 4 mmHg PV Regurgitation Doppler MO Peak End Diastolic Velocity 146 cm/s Mitral Valve Name Value Normal MV Doppler MV Decel Brule 967 cm/s2 MV PHT 15 ms MV Area (PHT) 15.0 cm2 4.0-5.0 MV Diastolic Function
[2024-01-18 01:51] LABS: Troponin I < 0.012 ng/mL (0.000-0.034)
[2024-01-18] MEDS: ACETAMINOPHEN 325 MG TABLET 650 MG PO ×2 (03:17→14:00)
--- NOTE | 2024-01-18 07:23 | ECG_ITS ---
Test Date: 2024-01-18 07:36:39 Measurements Intervals [place] Rate: 98 P: 39 RI: 149 QRS: 28 QRSD: 78 T: 24 QT: 339 QTc: 434 Interpretive Statements SINUS RHYTHM Compared to ECG 01/17/2024 19:48:27 anteroseptal infarct, age indeterminate Electronically Signed On 01-18-2024 10:11:47 CDT by Patrick Gallegos M.D.
[2024-01-18] MEDS: LEVOTHYROXINE SODIUM 100 MCG TABLET PO (07:34)
--- NOTE | 2024-01-18 07:45 | PC.NURSE ---
Meal tray ordered for pt
[2024-01-18 08:02] LABS: Hemoglobin 13.1 g/dL (12.0-15.0); Mean Corpuscular Hemoglobin 34.3 pg (26-34); Mean Corpuscular Volume 107.3 fl (80-100); Mean Platelet Volume 9.8 fl (7.4-10.4); Platelet Count Result 349 k/mm3 (150-375); Red Blood Count 3.82 M/mm3 (4.2-5.4); Red Cell Distribution Width 14.1 % (11.5-14.5)
[2024-01-18 08:11] LABS: Anion Gap 9 mmol/L (4-12); Blood Urea Nitrogen 5 mg/dL (7-17); Calcium 7.7 mg/dL (8.4-10.2); Carbon Dioxide 22 mmol/L (22-30); Chloride 108 mmol/L (98-107); Estimated CRCL calculation 90 ml/min; Estimated Glomerular Filt Rate > 60; Glucose 69 mg/dL (65-110); Potassium 3.5 mmol/L (3.4-5.0); Sodium 139 mmol/L (137-145)
[2024-01-18 08:17] LABS: Troponin I < 0.012 ng/mL (0.000-0.034)
[2024-01-18] MEDS: predniSONE 5 MG TABLET PO ×2 (08:24→17:40)
[2024-01-18 09:34] LABS: Lactic Acid Reflex 0.9 mmol/L (0.7-2.0)
[2024-01-18] MEDS: GABAPENTIN 100 MG CAPSULE PO ×2 (10:16→17:40)
[2024-01-18] MEDS: THERAPEUTIC MULTIVITAMINS/MINERALS TAB (*BKC) 1 TABLET PO (10:16)
[2024-01-18] MEDS: MAGNESIUM OXIDE 200 MG TABLET PO ×2 (10:16→21:22)
[2024-01-18] MEDS: PANTOPRAZOLE 40 MG TABLET PO (10:16)
[2024-01-18] MEDS: ATORVASTATIN 40 MG TABLET PO (10:17)
[2024-01-18] MEDS: DICYCLOMINE HCL 10 MG CAPSULE 20 MG PO ×3 (10:17→17:40)
[2024-01-18] MEDS: FOLIC ACID 1 MG TABLET PO (10:17)
[2024-01-18] MEDS: ASPIRIN 81 MG CHEWABLE TABLET PO (10:18)
--- NOTE | 2024-01-18 10:25 | PC.NURSE ---
gave VORB that it was okay for pt to take home antibiotic as it was her last dose of the pack. also gave VORB to not administer methotrexate or leflunomide due to pt being on antibiotic
[2024-01-18 10:42] LABS: Folic Acid 8.1 ng/mL (2.76->20); Vitamin B12 > 1000.0 pg/mL (239-931)
[2024-01-18] MEDS: SODIUM CHLORIDE 0.9% IV 500 ML 999 ML IV CONT (11:53)
[2024-01-18] MEDS: SODIUM CHLORIDE 0.9% IV 1,000 ML 75 ML IV CONT (12:26)
--- NOTE | 2024-01-18 14:20 | PM.IMHP ---
H&P: HPI History of Present Illness Date/Time: 01/18/24 14:20 Chief Complaint: Sore throat Narrative: 68 yo F with PMH of RA, CIDP, Migraine, Fibromyalgia, connective tissue disease, IBS-constipation who presented to the ER with Sore throat. Noted she has been on having sore throat since Dec 26, and has been on multiple antibiotics prior to this presentation. She denies any chest pain, SOB, vomiting, abd pain, fever, or nasal discharge. Patient started having diarrhea in the ER, and has had 5 episodes this morning. ER eval notable for HR 110, RR 21, BP 153/96, labs notable for WBC 9.0, CXR no acute changes. EKG showed sinus tachycardia. FORMERLY [facility] Past Medical History Medical History (Updated 01/18/24 @ 14:58 by Jennifer Le MD) Abnormal CT scan Acute rheumatic arthritis Common bile duct dilatation GERD (gastroesophageal reflux disease) Glaucoma High cholesterol Macular degeneration Larsen's neuroma left 2005 Osteoarthritis Rheumatoid arthritis Right upper quadrant pain Surgical History Surgical History H/O breast augmentation 1988 H/O total knee replacement left 2010/ right 2008 History of total left knee replacement (~11/12/21) Hx of breast reduction, elective 1995 S/P cubital tunnel release S/P total abdominal hysterectomy (~04/19/00) ovarian cysts - BSO Family History Family History (Updated 01/17/24 @ 21:03 by Ruth Pedroza RN) Father Heart disease Mother Heart disease Parkinson disease Sibling Diabetes mellitus Heart disease Hypertension History of open heart surgery Social History Social History Smoking status: Never smoker Alcohol intake: never Substance use: never Substance use type: does not use Do You Feel Safe in your Home?: Yes Lack of Transportation: No Lack of Food: Never True Current Housing: I Have Housing Concerned About Future Housing: No Difficulty Paying Gas/Electric Bills: No Difficulty Paying for Meds: No Currently Unemployed: No Education: High School Diploma/GED Difficulty w/ Childcare or Family Care: No Living arrangements: with family Additional living arrangements comments: spouse Occupation/Education: other Additional occupation/education comments: house / disability Gender identity (if verbalized by the patient): Female Sexual Orientation (if Verbalized by the Patient): Straight or Heterosexual Spiritual care concerns: No Meds Home Medications and Allergies Home Medications Medication Instructions Recorded Confirmed Type aspirin 81 mg chewable tablet 81 mg PO DAILY 12/31/20 01/17/24 History bimatoprost 0.01 % eye drops 1 drp EACH EYE HS 12/31/20 01/17/24 History (Lumigan) diphenhydramine 25 2 tablet PO QHS 12/31/20 01/17/24 History mg-acetaminophen 500 mg tablet (Tylenol PM Extra Strength) folic acid 1 mg tablet 1 mg PO DAILY 12/31/20 01/17/24 History levothyroxine 100 mcg tablet 100 mcg PO DAILY 12/31/20 01/17/24 History (Synthroid) linaclotide 290 mcg capsule 290 mcg PO DAILY PRN Constipation 12/31/20 01/17/24 History (Linzess) prednisone 5 mg tablet 5 mg PO BID 12/31/20 01/17/24 History temazepam 15 mg capsule 30 mg PO QHS PRN sleep #60 caps 03/07/21 01/17/24 Rx hydrocodone 10 mg-acetaminophen 1 tablet PO Q8H PRN pain (scale 03/25/21 01/17/24 Rx 325 mg tablet score 7-10) #85 tabs alendronate 70 mg tablet (Fosamax) 70 mg PO WEEKLY 07/02/21 01/17/24 History atorvastatin 20 mg tablet 40 mg PO DAILY 07/02/21 01/17/24 History calcium 300 mg-D3 20 mcg-magnesium 1 tablet PO DAILY 07/02/21 01/17/24 History 25 mg-coppr 0.5 [id number] tablet (Caltrate-D3 Plus Minerals) gabapentin 100 mg capsule 100 mg PO BID 07/02/21 01/17/24 History gabapentin 300 mg capsule 900 mg PO QHS 07/02/21 01/17/24 History methotrexate sodium 2.5 mg tablet 25 mg PO WEEKLY 07/02/21 09
[2024-01-18] MEDS: SODIUM CHLORIDE 0.9% IV 1,000 ML 100 ML IV CONT (17:41)
[2024-01-18] MEDS: VANCOMYCIN 1,500 MG/NS 500 ML 1,500 MG/500 ML BAG 150 MG IVPB (18:28)
[2024-01-18] MEDS: CYCLOBENZAPRINE HCL 10 MG TABLET 20 MG PO (21:19)
[2024-01-18] MEDS: ACETAMINOPHEN 500 MG TABLET 1000 MG BY MOUTH (21:20)
[2024-01-18] MEDS: GABAPENTIN 300 MG CAPSULE 900 MG PO (21:21)
[2024-01-18] MEDS: diphenhydrAMINE HCl CAP 25 MG CAPSULE 50 MG PO (21:21)
[2024-01-18] MEDS: LATANOPROST 0.005% OP SOLN 2.5 ML BTL 1 DROP EACH EYE (21:22)
[2024-01-18] MEDS: TEMAZEPAM (*CRX) 15 MG CAPSULE 30 MG PO (21:22)
[2024-01-19] VITALS: PULSE 117
[2024-01-19 04:00] VITALS: PULSE 105
[2024-01-19 05:25] LABS: Basophils Absolute Auto 0.2 K/mm3 (0.0-0.1); Basophils Percent Auto 1.4 % (0.2-1.2); Eosinophils Absolute Auto 0.2 K/mm3 (0-0.3); Eosinophils Percent Auto 1.5 % (0-4.4); Hematocrit 40.8 % (37.0-47.0); Hemoglobin 13.5 g/dL (12.0-15.0); Immature Granulocyte Absolute 0.05 K/mm3 (0.00-0.031); Immature Granulocyte Percent A 0.4 % (0-0.5); Lymphocytes Absolute Auto 2.28 K/mm3 (0.9-3.2); Lymphocytes Percent Auto 19.9 % (18.3-44.2); Mean Corpuscular HGB Conc 33.1 g/dl (32-36); Mean Corpuscular Volume 105.7 fl (80-100); Mean Platelet Volume 9.7 fl (7.4-10.4); Monocytes Absolute Auto 1.1 K/mm3 (0.1-0.6); Monocytes Percent Auto 9.2 % (2.6-8.5); Neutrophils Absolute Auto 7.7 K/mm3 (1.3-6.7); Neutrophils Percent Auto 67.6 % (45.5-73.1); Platelet Count Result 343 k/mm3 (150-375); Red Blood Count 3.86 M/mm3 (4.2-5.4); Red Cell Distribution Width 14.2 % (11.5-14.5); White Blood Count 11.4 K/mm3 (4.5-10.0)
[2024-01-19 05:44] LABS: Alanine Aminotransferase 19 U/L (6-35); Albumin Level 3.9 g/dL (3.5-5.1); Alkaline Phosphatase 46 U/L (38-126); Anion Gap 6 mmol/L (4-12); Aspartate Amino Transferase 33 U/L (14-36); Bilirubin,Total 0.6 mg/dL (0.2-1.3); Blood Urea Nitrogen 2 mg/dL (7-17); Calcium 8.1 mg/dL (8.4-10.2); Carbon Dioxide 26 mmol/L (22-30); Chloride 106 mmol/L (98-107); Estimated CRCL calculation 74 ml/min; Estimated Glomerular Filt Rate > 60; Glucose 77 mg/dL (65-110); Magnesium 2.1 mg/dL (1.6-2.3); Sodium 138 mmol/L (137-145)
[2024-01-19 05:45] LABS: Lactic Acid Reflex 0.7 mmol/L (0.7-2.0)
[2024-01-19 05:47] LABS: Platelet Estimate Adequate (Adequate)
[2024-01-19 05:48] LABS: Anisocytosis 1+; Ovalocytes 1+; Schistocytes None Seen
[2024-01-19 06:00] VITALS: BP 157/90; PULSE 106; RESP 18; TEMP 36.3; O2SAT 97
[2024-01-19] MEDS: VANCOMYCIN 1,000 MG/NS 250 ML 1,000 MG/250 ML BAG 250 MG IVPB (06:06)
[2024-01-19] MEDS: LEVOTHYROXINE SODIUM 100 MCG TABLET PO (06:06)
[2024-01-19] MEDS: ACETAMINOPHEN 325 MG TABLET 650 MG PO (06:32)
[2024-01-19 08:03] VITALS: PULSE 97
[2024-01-19] MEDS: ATORVASTATIN 40 MG TABLET PO (08:08)
[2024-01-19] MEDS: DICYCLOMINE HCL 10 MG CAPSULE 20 MG PO ×2 (08:08→12:10)
[2024-01-19] MEDS: THERAPEUTIC MULTIVITAMINS/MINERALS TAB (*BKC) 1 TABLET PO (08:08)
[2024-01-19] MEDS: FOLIC ACID 1 MG TABLET PO (08:08)
[2024-01-19] MEDS: GABAPENTIN 100 MG CAPSULE PO (08:08)
[2024-01-19] MEDS: PANTOPRAZOLE 40 MG TABLET PO (08:08)
[2024-01-19] MEDS: ASPIRIN 81 MG CHEWABLE TABLET PO (08:08)
[2024-01-19] MEDS: predniSONE 5 MG TABLET PO (08:08)
[2024-01-19] MEDS: MAGNESIUM OXIDE 200 MG TABLET PO (08:08)
[2024-01-19] MEDS: ENOXAPARIN 40 MG/0.4 ML SYRINGE SUB-Q (08:12)
[2024-01-19] MEDS: SODIUM CHLORIDE 0.9% IV 1,000 ML 75 ML IV CONT (08:14)
[2024-01-19] MEDS: traMADol HCL (*CRX) 50 MG TABLET PO (08:29)
[2024-01-19 10:17] LABS: Thyroid Stimulating Hormone Reflex 0.171 uIU/mL (0.465-4.68)
[2024-01-19 10:50] VITALS: BMI 21.4
--- NOTE | 2024-01-19 11:37 | PM.DS ---
DS: Admitting Diagnosis Discharge Date 01/19/2024 Admitting Diagnosis Sore throat and diarrhea DS: Discharge Diagnosis Discharge Diagnosis (1) Tachycardia: Code(s): R00.0 - Tachycardia, unspecified Status: Acute (2) Diarrhea: Code(s): R19.7 - Diarrhea, unspecified Status: Acute DS: Summary Hospital Course Hospital Course: 68 yo F with PMH of RA, CIDP, Migraine, Fibromyalgia, connective tissue disease, IBS-constipation who presented to the ER with Sore throat. Noted she has been on having sore throat since Dec 26, and has been on multiple antibiotics prior to this presentation. She denies any chest pain, SOB, vomiting, abd pain, fever, or nasal discharge. Patient started having diarrhea in the ER, and has had 5 episodes this morning. ER eval notable for HR 110, RR 21, BP 153/96, labs notable for WBC 9.0, CXR no acute changes. EKG showed sinus tachycardia. CT Neck, chest, abdominal and pelvis was unremarkable except as 2.3 cm distal aortic, and and thyroid nodule 1.6cm Noted diarrhea has resolved. labs unremarkable and TSH low but T4 within normal . Given that patient has received barrage of Antibiotics outpatient and no more antibiotics and if symptoms continues discussed that patient will have ENT referral from PCP. Also patient recommended to follow up with PCP for thyroid nodule. Continue follow up with PCP in 3-5 days Assessment and plan (1) Tachycardia: Code(s): R00.0 - Tachycardia, unspecified Status: Acute Plan Sore throat with tachycardia and tachypnea, resolved Patient has been having sore throat since December 26 has had multiple antibiotics prior to presentation CT Neck, chest AP notable for sphenoidal sinusitis, thyroid nodule and 2.3cm aortic dilation Throat culture pending no abx F/u with PCP and possible ENT referral if symptoms persists S/p IVF and Rocephin and Vanc Diarrhea, patient has had 5 episodes diarrhea resolved Sinus Tachycardia on EKG CT AP no acute changes Blood culture negative for now continue Linzess athome and follow up [facility] PCP monitor Rheumatic arthritis Contineu home meds CIDP continue Prednisone Migraine continue home meds Connective tissue disease Continue home meds aortic aneurysm 2.[address] thyroid nodule 1.6 F/u with PCP for thyroid biopsy and monitoring of aortic nodule F/u wt PCP in 3-5 days Time Spent with Patient Time attestation: Total time spent providing and/or coordinating discharge services: DS: Data Data Completed and Pending Labs on day of discharge: Labs from last 24 hours 01/19/24 05:20 WBC 11.4 H RBC 3.86 L Hgb 13.5 Hct 40.8 MCV 105.7 H MCH 35.0 H MCHC 33.1 RDW 14.2 Plt Count 343 MPV 9.7 Immature Gran % (Auto) 0.4 Neut % (Auto) 67.6 Lymph % (Auto) 19.9 [place] % (Auto) 9.2 H Eos % (Auto) 1.5 Baso % (Auto) 1.4 H Lymph # (Auto) 2.28 [place] # (Auto) 1.1 H Eos # (Auto) 0.2 Baso # (Auto) 0.2 H Abs Immat Gran (auto) 0.05 H Absolute Neuts (auto) 7.7 H Absolute Nucleated RBC 0.000 Nucleated RBC % 0.0 Platelet Estimate Adequate Anisocytosis 1+ Ovalocytes 1+ Schistocytes None seen Sodium 138 Potassium 4.0 Chloride 106 Carbon Dioxide 26 Anion Gap 6 BUN 2 L Creatinine 0.50 L Estim Creat Clear Calc 74 Estimated GFR > 60 Glucose 77 Lactic Acid 0.7 Calcium 8.1 L Magnesium 2.1 Total Bilirubin 0.6 AST 33 ALT 19 Alkaline Phosphatase 46 Total Protein 6.0 L Albumin 3.9 TSH (Reflex) 0.171 L Free T4 1.70 Total T3 Pending Preliminary micro results at discharge 01/18/24 16:35 Blood Culture - Preliminary Blood 01/18/24 15:49 Blood Culture - Preliminary Blood Discharge Plan Discharge Attending physician on discharge: Jennifer Le Discharging Clinician: Jennifer Le Patient Disposition: Home, Self-Care Activity: as tolerated Diet: as tolerated Patient Instr
[2024-01-19 12:00] VITALS: PULSE 117
[2024-01-19] MEDS: INFLUENZA VACCINE HIGH DOSE (>64) 180 MCG/0.5 ML SYRINGE IM (12:24)
== END 2024-01-19 13:22 | disposition home or self-care (01) ==
LOC: ANHED 18:53 → ANH2MED 01-18 14:46 → ANH3MEDSUR 01-20 07:28
PROVIDERS: Internal Medicine; Physician Assistant; Admitting Provider General Practice; Emergency Provider Emergency Medicine; PCP Internal Medicine; Visit Provider Internal Medicine
DX: R00.0 Tachycardia, unspecified (principal); R19.7 Diarrhea, unspecified; M06.9 Rheumatoid arthritis, unspecified; K21.9 Gastro-esophageal reflux disease without esophagitis; J02.9 Acute pharyngitis, unspecified; G61.81 Chronic inflammatory demyelinating polyneuritis; G43.909 Migraine, unspecified, not intractable, without status migrainosus; E78.00 Pure hypercholesterolemia, unspecified; J32.3 Chronic sphenoidal sinusitis; I77.819 Aortic ectasia, unspecified site; E04.1 Nontoxic single thyroid nodule; M79.7 Fibromyalgia; L94.9 Localized connective tissue disorder, unspecified; K58.1 Irritable bowel syndrome with constipation; Z23 Encounter for immunization; Z20.822 Contact with and (suspected) exposure to COVID-19; Z79.82 Long term (current) use of aspirin; Z79.899 Other long term (current) drug therapy
CPT/HCPCS: 36415; 70491; 71046; 71260; 74177; 80048; 80053; 82607; 82746; 83605; 83735; 84439; 84443; 84480; 84484; 85025; 85027; 85610; 85730; 87040; 87070; 87637; 87651; 90471; 90662; 93005; 93306; 96360; 96361; 96365; 96366; 96367; 96372; 99285; A9270; G0008; G0378; J0696; J1650; J3370; J7030; J7040; J7512; Q9967

== ENCOUNTER 2024-02-18 12:24 | Outpatient (CLI) | payer MEDICARE, SELFPAY ==
--- NOTE | ~2024-02-18 | US_ITS ---
EXAMINATION: US thyroid DATE: 02/18/2024 13:01 INDICATION: Nontoxic single thyroid nodule. TECHNIQUE: Multiple ultrasound images of the thyroid were obtained. COMPARISON: None. FINDINGS: The right thyroid lobe measures 4.6 x 2.0 x 2.1 cm. The left thyroid lobe measures 3.6 x 1.0 x 1.8 c m. The thyroid demonstrates diffusely increased vascularity. In the right thyroid lobe, there is a 1 5 mm solid, isoechoic, wider than tall nodule with ill-defined margin without echogenic foci (TI-RADS TR3). In the right thyroid lobe, there is a 21 mm solid, isoechoic, wider than tall nodule with ill- defined margin without echogenic foci (TR3). In the right thyroid lobe, there is a 9 mm solid, hypere choic, wider than tall nodule with ill-defined margin without echogenic foci (TR3). IMPRESSION: 1. Thyroid nodules. Thyroid ultrasound is recommended in one year. Reviewed, dictated and finalized at location A. MANAGER
== END 2024-02-18 12:25 | disposition home or self-care (01) ==
PROVIDERS: PCP Internal Medicine; Visit Provider Internal Medicine
DX: E04.2 Nontoxic multinodular goiter (principal)
CPT/HCPCS: 76536

== ENCOUNTER 2024-03-31 13:19 | Outpatient (CLI) | payer MEDICARE, SELFPAY ==
--- NOTE | ~2024-03-31 | CT_ITS ---
EXAMINATION: CT soft tissue neck w con DATE: 03/31/2024 14:16 INDICATION: Thyroid nodule. TECHNIQUE: Computed tomography (CT) of the neck was performed with 75 mL Omnipaque-350 intravenous co ntrast. Automated exposure control and iterative reconstruction technique were employed. The dose-avery gth product was 325.98 mGy-cm. COMPARISON: Neck CT 01/18/2024, thyroid ultrasound 02/18/2024 FINDINGS: There is mild scarring at right lung apex. There are likely changes of ocular lens replacem ent surgeries. There is mucosal thickening in sphenoid sinus. There are no pathologically enlarged ly mph nodes. The thyroid is unremarkable. There is plaque in the proximal internal carotid arteries wit h less than 50% stenosis relative to normal distal artery lumen diameters. There are changes of anter ior fusion procedure from C6 to T1 with healed interbody bone graft and anterior plate and screws. Th ere is severe cervical spondylosis. IMPRESSION: 1. No lymphadenopathy. Reviewed, dictated and finalized at location A. PING AND RECEIVING CLERK IMPRESSION: 1. No lymphadenopathy.
[2024-03-31 13:56] LABS: Estimated Glomerular Filt Rate > 60
== END 2024-03-31 13:20 | disposition home or self-care (01) ==
PROVIDERS: PCP Internal Medicine; Visit Provider Internal Medicine
DX: E04.1 Nontoxic single thyroid nodule (principal)
CPT/HCPCS: 70491; Q9967

== ENCOUNTER 2024-06-06 10:30 | Outpatient (CLI) | payer MEDICARE, SELFPAY ==
--- NOTE | ~2024-06-06 | MR_ITS ---
EXAMINATION: MR IAC wo/w con DATE: 06/06/2024 11:24 INDICATION: Asymmetrical sensorineural hearing loss. TECHNIQUE: Magnetic resonance imaging (MRI) of the brain, brainstem, and internal auditory canals was performed without and with 10 mL MultiHance intravenous contrast. COMPARISON: Brain MRI 02/25/2012 FINDINGS: There is an old infarct in the right cerebellum. There are scattered areas of nonspecific i ncreased T2-weighted signal intensity in the cerebral white matter. There is no intracranial hemorrha ge, acute infarction, or abnormal intracranial mass lesion. The ventricles are normal in size. There are likely changes of ocular lens replacement surgeries. The internal auditory canals, inner ears, an d tympanic cavities are normal. The mastoid air cells are normal. There is complete opacification of left sphenoid sinus. There is mild mucosal thickening in other paranasal sinuses. IMPRESSION: 1. 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 2. Mild nonspecific cerebral white matter disease, which likely represents chronic small vessel ische vita disease. Reviewed, dictated and finalized at location A. AT OPERATOR IMPRESSION: 1. 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 2. Mild nonspecific cerebral white matter disease, which likely represents environmental conflict manager jefe small vessel ischemic disease.
== END 2024-06-06 10:31 | disposition home or self-care (01) ==
LOC: MICIMG 10:31
PROVIDERS: PCP Internal Medicine; Visit Provider Otolaryngology
DX: H90.5 Unspecified sensorineural hearing loss (principal); R90.82 White matter disease, unspecified
CPT/HCPCS: 70553; A9577

== ENCOUNTER 2024-12-14 10:17 | Inpatient (IN) | payer MEDICARE, SELFPAY ==
--- OUTSIDE RECORDS SUMMARY | 2007-04-21 08:24 | XMS_ITS | Continuity of Care Document ---
Author Organization [facility] Address [address] [place] [address] [place] [address] Phone Care Team Providers Care Aircraft Layout Worker Name Role Phone Villegas OD, Brian Unavailable Unavailable Procedures Procedure Date No Charge Contact Lens Check No Charge Contact Lens Check Eye Exam, New Patient Advance Directives Directive Yes / No Effective Date File Name No Information Encounters Encounter Description Practice Location Reason(s) For Visit Diagnoses Date Provider Providers Copied on Encounter [facility], [address] [place] [address] [address], [place], [place], [id number], tel:[phone] [facility] No Information Romel- 3-200 8 Villegas OD Brian. [address], [place], [place], [facility], . tel:[phone] [facility], [address] [place] [address] [address], [place], [place], [id number], tel:[phone] [facility] No Information Mar-0 6-200 7 Villegas OD Brian. [address], [place], [address], [place]. tel:[phone] [facility], [address] [place] [address] [address], [place], [place], [id number], tel:[phone] [facility] No Information Feb-2 9-200 7 Villegas OD Brian. [address], [place], [place], [facility], [place]. tel:[phone] Family History Family Member Type Diagnosis Age At Onset No Information Payers Payer name Insurance type Covered republican ID Authoriza tion(s) No Information Social History Type Description Quantity Date Captured Comments Sex Female Smoking Status No Information Chief Complaint And Reason For Visit No Information Reason For Referral Reason For Referral No Information History Of Present Illness Encounter Date Complaint History Of Prese nt Illness No Information Functional Status Date Functional Assessmen t No Information Instructions Date Instruction Additional Infor mation No Information Assessments Type Assessment Date No Information Patient Care Teams Name Effective Dates (start - stop) Status Members No Information
--- OUTSIDE RECORDS SUMMARY | 2007-04-21 08:24 | XMS_ITS | Continuity of Care Document ---
Author Organization [facility] Address [address] [place] [address] [place] [address] Phone Care Team Providers Care Car Unloader Name Role Phone Villegas OD, Brian Unavailable Unavailable Procedures Procedure Date No Charge Contact Lens Check No Charge Contact Lens Check Eye Exam, New Patient Advance Directives Directive Yes / No Effective Date File Name No Information Encounters Encounter Description Practice Location Reason(s) For Visit Diagnoses Date Provider Providers Copied on Encounter [facility], [address] [place] [address] [address], [place], [place], [id number], tel:[phone] [facility] No Information Romel- 3-200 8 Villegas OD Brian. [address], [place], [place], [facility], . tel:[phone] [facility], [address] [place] [address] [address], [place], [place], [id number], tel:[phone] [facility] No Information Mar-0 6-200 7 Villegas OD Brian. [address], [place], [address], [place]. tel:[phone] [facility], [address] [place] [address] [address], [place], [place], [address], tel:[phone] [facility] No Information Feb-2 9-200 7 Villegas OD Brian. [address], [place], [place], [facility], [place]. tel:[phone] Family History Family Member Type Diagnosis Age At Onset No Information Payers Payer name Insurance type Covered democrat ID Authoriza tion(s) No Information Social History [...]
--- OUTSIDE RECORDS SUMMARY | 2007-04-21 08:24 | XMS_ITS | Continuity of Care Document ---
Author Organization [facility] Address [address] [place] [address] [place] [address] Phone Care Team Providers Care Farmworkers Name Role Phone Villegas OD, Brian Unavailable Unavailable Procedures Procedure Date No Charge Contact Lens Check No Charge Contact Lens Check Eye Exam, New Patient Advance Directives Directive Yes / No Effective Date File Name No Information Encounters Encounter Description Practice Location Reason(s) For Visit Diagnoses Date Provider Providers Copied on Encounter [facility], [address] [place] [address] [address], [place], [place], [id number], tel:[phone] [facility] No Information Romel- 3-200 8 Villegas OD Brian. [address], [place], [place], [facility], . tel:[phone] [facility], [address] [place] [address] [address], [place], [place], [address], tel:[phone] [facility] No Information Mar-0 6-200 7 Villegas OD Brian. [address], [place], [address], [place]. tel:[phone] [facility], [address] [place] [address] [address], [place], [place], [id number], tel:[phone] [facility] No Information Feb-2 9-200 7 Villegas OD Brian. [address], [place], [place], [facility], [place]. tel:[phone] Family History Family Member Type Diagnosis Age At Onset No Information Payers Payer name Insurance type Covered green party ID Authoriza tion(s) No Information Social History [...]
--- OUTSIDE RECORDS SUMMARY | 2021-03-17 12:30 | XMS_ITS | Continuity of Care Document ---
Author Organization [facility] Address [address] [place] [address] Phone Care Team Providers Care Matrix Drier Tender Name Role Phone John [place] MD Unavailable Unavailable Procedures Procedure Date MRI OF NECK, SPINE W/O CONTRAST 021 Advance Directives Directive Yes / No Effective Date File Name No Information Encounters Encounter Description Practice Location Reason(s) For Visit Diagnoses Date Provider Providers Copied on Encounter [facility], [address], [place], [place], [address], tel:[phone] [facility] No Information Enrico Lopez. [address] [place], [place], [id number], . tel:[phone] Referring Provider: Sp Lanier, [address] [facility], [place], [address]. tel:[phone] Family History Family Member Type Diagnosis Age At Onset No Information Payers Payer name Insurance type Covered democrat ID Authoriza tion(s) [employer] MDCR PPO PLANS [id number] Social History Type Description Quantity Date Captured [...]
--- OUTSIDE RECORDS SUMMARY | 2021-03-17 12:30 | XMS_ITS | Continuity of Care Document ---
Author Organization [facility] Address [address] [place] [address] Phone Care Team Providers Care Terminal Make Up Operator Name Role Phone John [place] MD Unavailable Unavailable Procedures Procedure Date MRI OF NECK, SPINE W/O CONTRAST 021 Advance Directives Directive Yes / No Effective Date File Name No Information Encounters Encounter Description Practice Location Reason(s) For Visit Diagnoses Date Provider Providers Copied on Encounter [facility], [address], [place], [place], [address], tel:[phone] [facility] No Information Enrico Lopez. [address] [place], [place], [address], . tel:[phone] Referring Provider: Sp Lanier, [address] [facility], [place], [address]. tel:[phone] Family History Family Member Type Diagnosis Age At Onset No Information Payers Payer name Insurance type Covered alliance party ID Authoriza tion(s) [employer] MDCR PPO PLANS [id number] Social History Type Description Quantity Date [...]
--- OUTSIDE RECORDS SUMMARY | 2021-03-17 12:30 | XMS_ITS | Continuity of Care Document ---
Author Organization [facility] Address [address] [place] [address] Phone Care Team Providers Care Medical Auditor Name Role Phone John [place] MD Unavailable Unavailable Procedures Procedure Date MRI OF NECK, SPINE W/O CONTRAST 021 Advance Directives Directive Yes / No Effective Date File Name No Information Encounters Encounter Description Practice Location Reason(s) For Visit Diagnoses Date Provider Providers Copied on Encounter [facility] [address], [place], [place], [address], tel:[phone] [facility] No Information Enrico Lopez. [address] [place], [place], [address], . tel:[phone] Referring Provider: Sp Lanier, [address] [facility], [place], [address]. tel:[phone] Family History Family Member Type Diagnosis Age At Onset No Information Payers Payer name Insurance type Covered libertarian ID Authoriza tion(s) [employer] MDCR PPO PLANS [id number] Social History Type Description Quantity Date [...]
--- NOTE | ~2024-12-14 | XR_ITS ---
EXAMINATION: XR sm bowel follow through WS DATE: 12/15/2024 12:56 INDICATION: Small bowel obstruction versus ileus TECHNIQUE: [employer] radiograph(s) of the abdomen was/were obtained. Water-soluble oral contrast was administered, and sequential radiographs of the abdomen were obtained until oral contrast was noted to be in the proximal colon. COMPARISON: None. FINDINGS: [employer] radiograph demonstrates large amount of stool in the proximal colon small amount scattered throughout the more distal colon. No dilated loops of gas- filled bowel to suggest obstruction. Multiple phleboliths in the pelvis. Transit time from the stomach to proximal colon was approximately 15 minutes. There is normal caliber and mucosal fold pattern throughout the small bowel. The region of the ulcer seen at the duodenal bulb on prior CT and endoscopy is not clearly profiled on the provided AP projections. No evident extraluminal contrast extravasation. IMPRESSION: 1. Normal small bowel follow-through with 15 minute transit time to the cecum with normal mucosal fold pattern. Reviewed, dictated and finalized at location A. IMPRESSION: 1. Normal small bowel follow-through with 15 minute transit time to the cecum w ith normal mucosal fold pattern.
--- NOTE | ~2024-12-14 | XR_ITS ---
EXAMINATION: XR abdomen/kub 1V DATE: 12/14/2024 16:29 INDICATION: Small bowel obstruction TECHNIQUE: 2 portable AP supine frontal images of the abdomen were obtained. COMPARISON: 12/14/2024 FINDINGS: Nasogastric tube courses below diaphragm, its tip projects over the medial aspect of the left mid abdomen. Contrast is noted in the right renal pelvis, right ureter and bladder. Moderate amount of stool in a moderate amount of air- filled large bowel. Small amount of air in nondilated small bowel. Small opacities in the left lower lung. IMPRESSION: 1. Nonspecific abdomen with a moderate amount of stool. If continued concern, consider a short-term follow-up study. Reviewed, dictated and finalized at location Q.
--- NOTE | ~2024-12-14 | CT_ITS ---
EXAMINATION: CT abdomen pelvis w con DATE: 12/14/2024 13:13 INDICATION: Lower abdominal pain. Bilateral flank pain TECHNIQUE: Computed tomography (CT) of the abdomen and pelvis was performed with intravenous contrast. The dose-length product was 238.16 mGy-cm. COMPARISON: CT abdomen and pelvis 03/15/2023 FINDINGS: There are a few small opacities in the lower lungs in the lower lungs similar to prior studies likely atelectasis or scarring. No liver mass. Spleen is unremarkable. Adrenal glands are unremarkable. Pancreas is unremarkable. Kidneys are unremarkable. No hydronephrosis. Gallbladder is unremarkable. Abdominal aorta is not aneurysmal. Bladder is unremarkable. No enlarged lymph nodes identified in the abdomen or pelvis. No free fluid in the pelvis. Multilevel degenerative change scattered throughout the visualized spine with prominent in the lumbar spine. There is short segment focal thickening of the carmen of the proximal small bowel. Fluid-filled dilated duodenum and proximal jejunum. There is narrowing of the antrum. IMPRESSION: 1. There is short segment focal thickening of the carmen of the proximal small bowel. Differential includes mass or focal enteritis 2. Fluid-filled dilated duodenum and proximal jejunum. Differential includes partial/developing small bowel obstruction possibly secondary to a mass or enteritis. Consider an upper GI examination for further assessment. 3. There is narrowing of the antrum. Consider an upper GI examination for further assessment. Reviewed, dictated and finalized at location Q. IMPRESSION: 1. There is short segment focal thickening of the carmen of the proximal small b owel. Differential includes mass or focal enteritis 2. Fluid-filled dilated duodenum and proximal jejunum. Differential includes pa rtial/developing small bowel obstruction possibly secondary to a mass or enteri tis. Consider an upper GI examination for further assessment. 3. There is narrowing of the antrum. Consider an upper GI examination for furth er assessment.
--- NOTE | ~2024-12-14 | XR_ITS ---
Clinical history:NG tube placement EXAM:X-ray abdomen gastric tube TECHNIQUE:A single portable AP upright NG tube placement image was obtained Comparisons:CT abdomen and pelvis 07/11/2024 FINDINGS: Nasogastric tube courses below the diaphragm, its tip projects over the lateral aspect of the left mid abdomen. Small opacities in the left lower lung. Moderate amount of air and stool in nondilated large bowel. Probable buttons and zipper project over the lower abdomen. Correlate clinically. IMPRESSION: 1.Nasogastric tube courses below the diaphragm, its tip projects over the lateral aspect of the left mid abdomen. 2.Small opacities in the left lower lung. 3.Moderate amount of air and stool in nondilated large bowel. Reviewed, dictated and finalized at location Q. IMPRESSION: 1.Nasogastric tube courses below the diaphragm, its tip projects over the later al aspect of the left mid abdomen. 2.Small opacities in the left lower lung. 3.Moderate amount of air and stool in nondilated large bowel.
--- OUTSIDE RECORDS SUMMARY | 2024-12-14 10:23 | XMS_ITS | Clinical Summary ---
Author Organization [facility] Address [address] [place] [address] Care Team Providers Care Cloud Administrator Name Role Phone Brian Luna MD Primary Care Provider Allergies Active Allergy Reactions Criticality Noted Date Comments Carbamazepine Other (See comments) 11/21/2024 Fentanyl Other (See comments) 11/21/2024 Topiramate Other (See comments) 11/21/2024 Medications gabapentin (NEURONTIN) 100 mg capsule Take 1 capsule (100 mg total) by mouth 2 (two) times a day 4 Active gabapentin (NEURONTIN) 300 mg capsule 4 Active methotrexate 2.5 mg tablet TAKE 5 TABLETS BY MOUTH IN THE MORNING AND EVENING ONCE A WEEK 4 Active aspirin 81 mg enteric coated tablet daily Active atorvastatin (LIPITOR) 20 mg tablet 4 Active Lumigan 0.01 % ophthalmic drops 4 Active ciprofloxacin (CILOXAN) 0.3 % ophthalmic solution INSTILL 1 DROP INTO SURGICAL EYE 3 TIMES DAILY BEGINNING 2 DAYS PRIOR TO SURGERY & CONTINUE X 1 WEEK 4 Active cyclobenzaprine (FLEXERIL) 5 mg tablet TAKE 1-2 TABS BY MOUTH NIGHTLY FOR BETTER SLEEP AND LESS MUSCLE CRAMPS 4 Active HYDROcodone-yadi taminophen (NORCO) 5-325 mg per tablet TAKE 1 TABLET BY MOUTH THREE TIMES DAILY NEEDED FOR BAD PAIN. USE STRAIGHT TYLENOL FOR MODERATE PAIN 4 Active leflunomide (ARAVA) 10 mg tablet Take 1 tablet (10 mg total) by mouth daily 4 Active Linzess 290 mcg capsule 4 Active predniSONE (DELTASONE) 5 mg tablet Take by mouth daily 4 Active temazepam (RESTORIL) 30 mg capsule Take 1 capsule (30 mg total) by mouth nightly 4 Active traMADoL (ULTRAM) 50 mg tablet TAKE 1 TO 2 TABLETS BY MOUTH THREE TIMES DAILY NEEDED 4 Active alendronate (FOSAMAX) 70 mg tablet TAKE 1 TABLET BY MOUTH ONE TIME PER WEEK 4 Active dicyclomine (BENTYL) 20 mg tablet 20 MG ORALLY THREE TIMES A DAY NEEDED FOR ABDOMINAL PAIN [address] (NexIUM) 40 mg capsuleIndicati ons:Treatment of Non-Bleeding Gastric Disorder Take 1 capsule (40 mg total) by mouth 2 (two) times a day 60 capsule 1 4 Active ALPRAZolam (Xanax) 0.5 mg tablet Take 1 tablet 3 times a day by oral route as needed. [address] (VOLTAREN) 75 mg EC tablet Take 1 tablet (75 mg total) by mouth 2 (two) times a day Active FLUoxetine (PROzac) 20 mg capsule Take 1 capsule every day by oral route. 5 Active flurbiprofen (OCUFEN) 0.03 % ophthalmic solution PLEASE SEE ATTACHED FOR DETAILED DIRECTIONS Active folic acid (FOLVITE) 1 mg tablet Take 1 tablet (1,000 mcg total) by mouth daily Active levothyroxine (SYNTHROID) 100 mcg tablet Take 1 tablet (100 mcg total) by mouth daily Active liothyronine (CYTOMEL) 5 mcg tablet 1 tablet (5 mcg total) 2 (two) times a day Active losartan (COZAAR) 50 mg tablet Take 1 tablet (50 mg total) by mouth daily 5 Active magnesium oxide (MAG-OX) 250 mg (150.8 mg elemental) tablet TAKE 1 TABLET BY ORAL ROUTE 2 TIMES A DAY TO PREVENT MUSCLE CRAMPS Active naloxone (NARCAN) 4 mg/actuation spray,non-aeros ol CALL 911. ADMINISTER A SINGLE SPRAY INTRANASALLY INTO ONE NOSTRIL UPON SIGNS OF OPIOID OVERDOSE. MAY REPEAT AFTER 3 MINUTES IF NO RESPONSE. Active Macrobid 100 mg capsule Take 1 capsule every 12 hours by oral route. 5 Active ondansetron (ZOFRAN) 4 mg tablet Active piroxicam (FELDENE) 10 mg capsule Take 1 capsule (10 mg total) by mouth daily 2 Active pravastatin (PRAVACHOL) 40 mg tablet Take 2 tablets (80 mg total) by mouth nightly Active pravastatin (PRAVACHOL) 80 mg tablet daily Active prednisoLONE acetate (PRED FORTE) 1 % ophthalmic suspension INSTILL 1 DROP INTO SURGICAL EYE 3 TIMES DAILY AFTER SURGERY CONTINUE X 3 WEEKS Active rosuvastatin (CRESTOR) 40 mg tablet Take 1 tablet (40 mg total) by mouth daily 5 Active polyethylene glycol (GaviLyte-N) 236-22.74-6.74 -5.86 gram solution Active sulfaSALAzine (AZULFIDINE) 500 mg tablet take 1-2 twice a day Active sulfaSALAzine EN (AZULFIDINE EN) 500 mg EC tablet Take 2 tablets (1,000 mg total) by mouth 2 (two) times a day 5 Active Ubrelvy 100 mg tablet TAKE 1 TABLET BY MOUTH ONCE DAILY A SINGLE DOSE, MAY REPEAT ONCE IN 2 HOURS OR LONGER AFTER FIRST DOSE IF NEEDED Active diazePAM (VALIUM) 10 mg tablet Take 30 min prior to test 1 tablet 5 Active Active Problems Problem Noted Date Diagnosed Date Hypothyroidism 09/02/2013 Overview (07/22/2016): HYPOTHYROIDISM NOS Osteoporosis 09/02/2013 Overview (07/24/2016): OSTEOPOROSIS NOS Encounters Date Type Department Care Team Description 11/27/[address] [facility] Medicine Otolaryngology [address], [address] [place] [address] Marcia Webster RN cochlear implant pathway 11/21/2024 2:40 PM CDT Office Visit [facility] Medicine Otolaryngology [address], [address] [place] [address] Sony Ya MD Sensorineural hearing loss, asymmetrical (Primary Dx); Impairment of auditory discrimination of both ears; Sudden idiopathic hearing loss of left ear with restricted hearing of right ear 11/21/2024 2:29 PM CDT - 11/21/2024 11:59 PM CDT Hospital Encounter [facility] [address] [place] [address] Discharge Disposition: Discharge to home or self care 11/21/2024 2:20 PM CDT Procedure visit [facility] Otolaryngology [address], [address] [place] [address] Sensory hearing loss, bilateral (Primary Dx) 11/21/2024 Orders Only [facility] Otolaryngology [address], [address] [place] [address] Kayleen Rios, ASSISTANT CURATOR Hearing loss, unspecified hearing loss type, unspecified laterality (Primary Dx) 10/04/2024 Telephone [facility] Otolaryngology [address] [place] [address] Sarai Tovar MS from Last 3 Months Immunizations Immunization Administration Dates Next Due Pneumococcal Conjugate PCV 13 12/06/2020 Pneumococcal Polysaccharide PPV23 03/01/2020 Surgical History Surgery Date Site/Laterality Comments TONSILLECTOMY 1968 Tonsillectomy TOTAL ABDOMINAL HYSTERECTOMY W/ BILATERAL SALPINGOOPHORECTOMY 1985 Hysterectomy, total abdominal, BSO KNEE ARTHROPLASTY 2009 Knee replacement CERVICAL FUSION Medical History Medical History Date Comments Osteoporosis Osteoporosis Hx Other Medical rheumayoid arth ritis Hx Other Medical Headache, migra ine Disorder of thyroid Thyroid dise ase Osteoarthritis Osteoarthritis Primary fibromyalgia syndrome fi bromyalgia GERD (gastroesophageal reflux disease) Hypothyroidism Autoimmune disease Headache Migraine HL (hearing loss) Hypertension Stroke (HCC) Tinnitus Family History Medical History Relation Name Comments Diabetes type II Other Family hist ory of Diabetes -Type II; Osteoporosis Other Family history of Osteoporosis; Thyroid disease Other Family histo ry of Thyroid disorder; Relation Name Status Comments Other Social History Tobacco Use Types Packs/Day Years Used Date Smoking Tobacco: Never Smokeless Tobacco: Never Tobacco Cessation:Counseling Given: Not Answered Alcohol Use Standard Drinks/Week Comments No 0 (1 standard drink = 0.6 oz pur e alcohol) AUDIT-C Answer Date Recorded Q1: How often do you have a drink containing alcohol? Never 08/09/2023 Q2: How many drinks containi ng alcohol do you have on a typical day when you are drinking? Patient does not drink Q3: How often do you have si x or more drinks on one occasion? Never 08/09/2023 Personal Safety Answer Date Recorded Have you ever been in or are you currently in a harmful physical or emotional relationship or is someone making you feel afraid or unsafe? Denies 08/09/2023 Comments Unknown Sex and Gender Information Value Date Recorded Sex Assigned at Not on file Legal Sex Female 12:26 AM WHIZZER HAND Gender Identity Not on file Sexual Orientation Not on file Obstetrics History Last Filed Vital Signs Vital Sign Reading Time Taken Comments Blood Pressure 143/88 08/09/2023 1:23 PM CDT Pulse 86 08/09/2023 1:23 PM CDT Temperature 35.8 C (96.4 F) 08/09/2023 12:41 PM CDT Respiratory Rate 17 08/09/2023 1:23 PM CDT Oxygen Saturation 97% 08/09/2023 1:23 PM CDT Inhaled Oxygen Concentration - - Weight 59 kg (130 lb) 08/09/2023 12:41 PM CDT Height 160 cm (5' 3) 08/09/2023 12:41 PM CDT Body Mass Index 23.03 08/09/2023 12:41 PM CDT Plan of Treatment Health Maintenance Due Date Last Done Comments Breast Cancer Screening-Mammogram 1955 Colon Cancer Screening-Colonoscopy 1955 Depression Screening 1955 Fall Risk Assessment 1955 Hepatitis C Screening 1955 DTaP/Tdap/Td Vaccine (1 - Tdap) 1966 Hepatitis B Screening 1973 Well Visit 65+ 2020 Covid-19 Vaccine (4 - 2023-2 5 season) 2023 08/19/2021, 11/14/2020, 10/17/2020 Influenza Vaccine (#1) 2024 , 02/02/2023, 01/23/2022, Additional history exists Pneumococcal vaccine 65+ (3 of 3 - PCV20 or PCV21) 03/01/2025 12/06/2020, 03/01/2020 Osteoporosis Screening-Bone Density Scan 08/02/2025 08/03/2023, 02/24/2021 Zoster Vaccine Completed 10/12/2023, 05/30/2023 Procedures Procedure Name Priority Date/Time Associated Diagnosis Comments NEURO MR OUTSIDE REFERENCE Routine 11/21/2024 2:29 PM CDT [facility]UD[facility] RESULTS 11/21/2024 1:54 PM CDT from Last 3 Months Results * Neuro MR Outside Reference (11/21/2024 2:29 PM CDT) Impressions [facility] - 11/21/2024 2:29 PM CDT These images are for Reference purposes only and have not been reviewed by [facility] Radiology. There will be no report generated by a [facility] Radiologist. Narrative RAD_PACS[facility] - 11/21/2024 2:29 PM CDT EXAMINATION: Images For Reference Purposes Only Sony Ya MD IMG MRI PROCEDURES Final Re sult [facility] * [facility] Results (11/21/2024 1:54 PM CDT) Provider Scanning AUDIOLOGY SERVICES ORDERABLES Final Result from Last [address] [place] [address] T MEDICARE [employer] MEDICARE Advance Directives For more information, please contact: [phone] * Full Code (Latest Code Status on File) Date Activated Date Inactivated Comments 08/09/2023 12:42 PM 08/09/2023 6:04 PM Care Teams Cloud Administrator Relationship Specialty Start Date End Date Brian Luna MD PCP - General 12/17/09
--- OUTSIDE RECORDS SUMMARY | 2024-12-14 10:23 | XMS_ITS | Clinical Summary ---
Author Organization [facility] Address [address] [address] Care Team Providers Care Author Agent Name Role Phone Brian Luna MD Primary Care Provider [phone] Ayaz Donald MD Unavailable [phone] Source Comments [facility],non-owned Affiliates and Associated Physician Practices is amultiple site organization consisting of ambulatory clinics and hospital sitesin [place], [place], [place] and [place]. This disclosure is being madepursuant to the Care Everywhere program and may not contain all information available regarding this patient. Last updated 18.[facility]. [facility] Allergies No known active allergies Medications * Be aware that medications may not be up to date on this document. Alwaysverify current medications with the patient. piroxicam (FELDENE) 10 MG capsule Take 1 Cap by mouth once daily. 30 Cap 4 10/28/2011 Active levothyroxine (SYNTHROID) 100 MCG tablet once daily. Active liothyronine (CYTOMEL) 5 MCG tablet 1 Tab 2 times daily. Active pravastatin (PRAVACHOL) 80 MG tablet once daily. Active Hydrocodone-Acet aminophen (VICODIN PO) as needed. Active Temazepam (RESTORIL PO) once daily. Acti ve Cyclobenzaprine HCl (FLEXERIL PO) as needed. Active Omeprazole (PRILOSEC PO) once daily. Acti ve aspirin 81 MG tablet once daily. Active SUMAtriptan Succinate (IMITREX PO) as needed. Active Active Problems Problem Noted Date Diagnosed Date Degeneration of lumbar or lumbosacral interverte bral disc 10/30/2011 Lumbosacral spondylosis without myelopathy 10/29 Social History Tobacco Use Types Packs/Day Years Used Date Smoking Tobacco: Never Smokeless Tobacco: Never Alcohol Use Standard Drinks/Week Comments No 0 (1 standard drink = 0.6 oz pur e alcohol) Comments Unknown Sex and Gender Information Value Date Recorded Sex Assigned at Not on file Legal Sex Female 1:49 PM [employer] Gender Identity Not on file Sexual Orientation Not on file Occupation Industry Job Start Date Job End Date disabled Not on file Not on file Not on file Last Filed Vital Signs Vital Sign Reading Time Taken Comments Blood Pressure - - Pulse - - Temperature - - Respiratory Rate - - Oxygen Saturation - - Inhaled Oxygen Concentration - - Weight 71.7 kg (158 lb) 10/28/2011 1:48 PM CDT Height 160 cm (5' 3) 10/28/2011 1:48 PM CDT Body Mass Index 27.99 10/28/2011 1:48 PM CDT Plan of Treatment Health Maintenance Due Date Last Done Comments BONE DENSITY TESTING 1955 COLOGUARD (AGES 45-75) - COL ON CA SCREENING 1955 COLON MONITORING 1955 COLONOSCOPY - COLON CA SCREENING 1955 CT COLONOGRAPHY - COLON CA SCREENING 1955 Colorectal Cancer Screening 1955 FIT - COLON CA SCREENING 1955 FLEX SIG - COLON CA SCREENING 1955 MAMMOGRAM 1955 HEPATITIS C SCREENING 04/04/1973 DTAP/TDAP/TD VACCINES (1 - Tdap) 1974 PNEUMOCOCCAL VACCINE 50+ (1 of 1 - PCV) 2005 ZOSTER VACCINE (1 of 2) 2005 COVID-19 VACCINE ( - 2023-2 5 season) 2023 DEPRESSION SCREENING 04/19/2024 MEDICARE AWV CALENDAR YEAR 2024 INFLUENZA VACCINE (#1) 2024 Respiratory Syncytial Virus (RSV) Vaccine Pt: or over 60 yrs (1 - 1-dose 75+ series) 2030 HEPATITIS B VACCINE Aged Out No longe r eligible based on patient's age to complete this topic HIB VACCINE Aged Out No longer eligi ble based on patient's age to complete this topic HPV VACCINE Aged Out No longer eligi ble based on patient's age to complete this topic MENINGOCOCCAL (Group B) VACC INE SHARED DECISION-MAKING Aged Out No longer eligibl e based on patient's age to complete this topic MENINGOCOCCAL GROUPS A/C/Y/W VACCINE Aged Out No longer eligible b ased on patient's age to complete this topic Insurance [facility] Address: [facility] [id number] [place] [address] [employer] MEDICARE ADV SELF PAY NO INSURANCE Member Subscriber Plan / Payer (Ef fective for All Dates) Name:Trent Frausto Member ID:Not on file Relation to Subscriber:Not on file Name:TRENT FRAUSTO Subscriber ID:Not on file (Home) Address: [facility] [place] [address] Payer ID:Not on file Group ID:Not on file Type:Self Pay Address: [place], [place] Care Teams Author Agent Relationship Specialty Start Date End Date Brian Luna MD [address] [place] [address] [place] [phone] PCP - General Internal Medicine 10/13/11 Ayaz Donald MD [address] [place] [phone] 10/28/11
[2024-12-14 10:53] VITALS: BP 149/96; PULSE 92; RESP 18; O2SAT 95
--- NOTE | 2024-12-14 11:23 | ED.GENADULT ---
HPI - General Adult General Chief complaint: Back Pain/Injury Stated complaint: back pain, nausea Time Seen by Provider: 12/14/24 10:33 History of Present Illness HPI narrative: 69-year-old female presenting to the emergency department for evaluation for lower abdominal pain and back pain. Patient reports she was recently treated with antibiotics for a suspected kidney infection. Patient states she is still having symptoms including nausea vomiting and lower back pain along with pain with urination. Related Data Home Medications ?Medication ?Instructions ?Recorded ?Confirmed ?Last Taken ?Type aspirin 81 mg chewable tablet 81 mg PO DAILY 12/31/20 02/16/24 02/15/24 History bimatoprost 0.01 % eye drops 1 drp EACH EYE HS 12/31/20 02/16/24 02/15/24 History (Lumigan) diphenhydramine 25 2 tablet PO QHS 12/31/20 02/16/24 02/15/24 History mg-acetaminophen 500 mg tablet (Tylenol PM Extra Strength) folic acid 1 mg tablet 1 mg PO DAILY 12/31/20 02/16/24 02/15/24 History levothyroxine 100 mcg tablet 100 mcg PO DAILY 12/31/20 02/16/24 02/15/24 History (Synthroid) linaclotide 290 mcg capsule 290 mcg PO DAILY PRN Constipation 12/31/20 02/16/24 Unknown History (Linzess) prednisone 5 mg tablet 5 mg PO BID 12/31/20 02/16/24 02/15/24 History alendronate 70 mg tablet (Fosamax) 70 mg PO WEEKLY 07/02/21 02/16/24 01/11/24 History atorvastatin 20 mg tablet 40 mg PO DAILY 07/02/21 02/16/24 02/15/24 History calcium 300 mg-D3 20 mcg-magnesium 1 tablet PO DAILY 07/02/21 02/16/24 02/15/24 History 25 mg-coppr 0.5 [id number] tablet (Caltrate-D3 Plus Minerals) gabapentin 100 mg capsule 100 mg PO BID 07/02/21 02/16/24 02/15/24 History gabapentin 300 mg capsule 900 mg PO QHS 07/02/21 02/16/24 02/15/24 History methotrexate sodium 2.5 mg tablet 25 mg PO WEEKLY 07/02/21 02/16/24 Unknown History multivitamin 1 tablet PO DAILY 07/02/21 02/16/24 02/15/24 History magnesium 250 mg tablet 250 mg PO BID 01/27/22 02/16/24 02/15/24 History tramadol 100 mg tablet,extended 200 mg PO TID PRN pain 4-6 01/27/22 02/16/24 Unknown History release 24 hr esomeprazole magnesium 40 mg 40 mg PO DAILY 01/28/23 02/16/24 02/15/24 History capsule,delayed release (Nexium) cyclobenzaprine 10 mg tablet 10 mg PO HS 01/17/24 02/16/24 02/15/24 History dicyclomine 20 mg tablet 20 mg PO TID 01/17/24 02/16/24 02/15/24 History cyclobenzaprine 10 mg PO TID PRN Muscle Pain 02/03/24 02/16/24 Unknown History diclofenac sodium 75 mg 75 mg PO DAILY 02/03/24 02/16/24 02/15/24 History tablet,delayed release losartan 50 mg tablet 50 mg PO DAILY 02/03/24 02/16/24 02/15/24 History tocilizumab 200 mg/10 mL (20 IV 09/13/24 Unknown History mg/mL) intravenous solution (Actemra) Allergies Allergy/AdvReac Type Severity Reaction Status Date / Time topiramate (From Topamax) AdvReac Confusion Verified 12/14/24 10:56 Review of Systems Review of Systems: All systems reviewed & are unremarkable except as noted in HPI and below PMFSH Past Medical History Medical History (Updated 12/14/24 @ 16:12 by QUINN Keita) Chronic headache Chronic neck pain Peripheral neuropathy Colon cancer screening Common bile duct dilatation Abnormal CT scan Rheumatoid arthritis Right upper quadrant pain Acute rheumatic arthritis Glaucoma Larsen's neuroma left 2005 GERD (gastroesophageal reflux disease) High cholesterol Macular degeneration Osteoarthritis Surgical History Surgical History History of laparoscopy History of total left knee replacement (~11/12/21) Hx of breast reduction, elective 1995 H/O breast augmentation 1988 H/O total knee replacement left 2010/ right 2008 S/P cubital tunnel release S/P total abdominal hysterectomy (~04/19/00) ovarian cysts - BSO Family History Family History Father Heart disease Mother Heart disease Parkinson disease Sibling Diabetes mellitus Heart disease Hypertension History of open heart surgery Social History Social History Smoking status: Never smoker Alcohol intake: never Substance use: never Substance use type: does not use Do You Feel Safe in your Home?: Yes Lack of Transportation: No Lack of Food: Never True Current Housing: I Have Housing Concerned About Future Housing: No Difficulty Paying Gas/Electric Bills: No Difficulty Paying for Meds: No Currently Unemployed: No Education: High School Diploma/GED Difficulty w/ Childcare or Family Care: No Living arrangements: with family Additional living arrangements comments: spouse Occupation/Education: other Additional occupation/education comments: house / disability Gender identity (if verbalized by the patient): Female Sexual Orientation (if Verbalized by the Patient): Straight or Heterosexual Spiritual care concerns: No Exam Narrative: APPEARANCE: Uncomfortable appearing HEAD: normocephalic, atraumatic. EYES: PERRLA/EOMI, conjunctivae clear. NOSE: Normal no drainage EARS:TMS clear with good light reflex. THROAT: Pharynx clear, no exudate. NECK: Supple. No adenopathy, no masses. RESPIRATORY: Airway patent, respirations nonlabored. Clear to auscultation bilaterally, no rales, rhonchi, wheezing. CARDIOVASCULAR: Regular rate and rhythm without murmurs rubs or gallops. ABDOMINAL: Tenderness to palpation with bilateral CVA tenderness MUSCULOSKELETAL: Moves all extremities. Strength/ROM intact, No edema, No calf tenderness. NEURO: Alert. Cranial nerves II through XII intact. Grossly intact SKIN: Warm, dry. Normal Color Course Vital Signs Vital signs: Vital Signs Pulse Rate 92 12/14/24 10:53 Respiratory Rate 18 12/14/24 10:53 Blood Pressure 149/96 H 12/14/24 10:53 Pulse Oximetry 95 12/14/24 10:53 Oxygen Delivery Room Air 12/14/24 10:53 Pulse Rate 96 12/14/24 15:00 Respiratory Rate 18 12/14/24 15:00 Blood Pressure 148/99 H 12/14/24 15:00 Pulse Oximetry 99 12/14/24 15:00 Oxygen Delivery Room Air 12/14/24 10:53 Medical Decision Making [facility] Narrative Medical decision making narrative: 69-year-old female presents emergency department for evaluation for lower back pain lower abdominal pain and associated nausea and vomiting. Patient is currently afebrile but does have a leukocytosis 13.9 and hemoglobin 11.4. Patient has no significant acute abnormalities on her CMP UA was negative for infection, CT is concerning for enteritis versus small bowel obstruction. GI was consulted and surgery was consulted. Surgery did recommend placing of an NG tube. Patient family updated the results of the workup and plan for admission. Patient was well-appearing at time of admission. X-ray post NG tube placement does show proper placement of the NG tube. Differential Diagnosis Differential Diagnosis: Colitis, diverticulitis, appendicitis, renal calculi, urinary tract infection, small-bowel obstruction, enteritis Vital Signs Vital Signs: Vital Signs Pulse Rate 92 12/14/24 10:53 Respiratory Rate 18 12/14/24 10:53 Blood Pressure 149/96 H 12/14/24 10:53 Pulse Oximetry 95 12/14/24 10:53 Oxygen Delivery Room Air 12/14/24 10:53 Pulse Rate 96 12/14/24 15:00 Respiratory Rate 18 12/14/24 15:00 Blood Pressure 148/99 H 12/14/24 15:00 Pulse Oximetry 99 12/14/24 15:00 Oxygen Delivery Room Air 12/14/24 10:53 Lab Data Lab results reviewed: Yes I reviewed the patient's lab results. 12/14/24 12:15 12/14/24 12:15 Labs: Lab Results 12/14/24 Range/Units 12:15 WBC 13.9 H (4.5-10.0) K/mm3 RBC 3.63 L (4.2-5.4) M/mm3 Hgb 11.4 L (12.0-15.0) g/dL Hct 37.4 (37.0-47.0) % MCV 103.0 H (80-100) fl MCH 31.4 (26-34) pg MCHC 30.5 L (32-36) g/dl RDW 18.4 H (11.5-14.5) % Plt Count 343 (150-375) k/mm3 MPV 9.8 (7.4-10.4) fl Immature Gran % (Auto) 0.5 (0-0.5) % Neut % (Auto) 67.3 (45.5-73.1) % Lymph % (Auto) 19.5 (18.3-44.2) % Boyle % (Auto) 11.7 H (2.6-8.5) % Eos % (Auto) 0.4 (0-4.4) % Baso % (Auto) 0.6 (0.2-1.2) % Lymph # (Auto) 2.70 (0.9-3.2) K/mm3 Boyle # (Auto) 1.6 H (0.1-0.6) K/mm3 Eos # (Auto) 0.1 (0-0.3) K/mm3 Baso # (Auto) 0.1 (0.0-0.1) K/mm3 Abs Immat Gran (auto) 0.07 H (0.00-0.031) K/mm3 Absolute Neuts (auto) 9.3 H (1.3-6.7) K/mm3 Absolute Nucleated RBC 0.000 (0.0-0.012) K/mm3 Nucleated RBC % 0.0 (0.0-0.2) % Sodium 140 (137-145) mmol/L Potassium 4.1 (3.4-5.0) mmol/L Chloride 103 (98-107) mmol/L Carbon Dioxide 29 (22-30) mmol/L Anion Gap 8 (4-12) mmol/L BUN 14 D (7-17) mg/dL Creatinine 0.70 (0.7-1.0) mg/dL Estim Creat Clear Calc 54 ml/min Estimated GFR > 60 (59 - ) Glucose 92 (65-110) mg/dL Calcium 10.1 (8.4-10.2) mg/dL Total Bilirubin 0.4 (0.2-1.3) mg/dL AST 36 (14-36) U/L ALT 29 (6-35) U/L Alkaline Phosphatase 45 (38-126) U/L Total Protein 6.6 (6.3-8.2) g/dL Albumin 4.6 (3.5-5.1) g/dL Urine Color Yellow (Yellow) Urine Appearance Clear (Clear) Urine pH 7.0 (5.0-9.0) Ur Specific [place] 1.012 (1.001-1.035) Urine Protein Negative (Negative) mg/dL Urine Glucose (UA) Negative (Negative) mg/dL Urine Ketones Negative (Negative) mg/dL Ur Blood (Man) Negative (Negative) Urine Nitrate Negative (Negative) Urine Bilirubin Negative (Negative) Urine Urobilinogen 0.2 (<2.0) mg/dL Add Ur Microanalysis Reviewed Leukocyte Esterase Rfl 1+ H (Negative) SYLVIA/UL Urine RBC 0-2 (0-2) /hpf Urine WBC 0-5 (0-3) /hpf Ur Squamous Epith Cells None seen (Few) /hpf Urine Bacteria None seen /hpf Urine Casts 0-2 Imaging Data Radiologist's impression: Impressions Abdomen/Pelvis CT 12/14/24 13:19 IMPRESSION: 1. There is short segment focal thickening of the carmen of the proximal small bowel. Differential includes mass or focal enteritis 2. Fluid-filled dilated duodenum and proximal jejunum. Differential includes partial/developing small bowel obstruction possibly secondary to a mass or enteritis. Consider an upper GI examination for further assessment. 3. There is narrowing of the antrum. Consider an upper GI examination for further assessment. ADDENDUM: 12/14/24 1622 ADDENDUM: There is prominent edematous wall thickening at the gastric antrum and pylorus with prominent mucosal enhancement. There appears be a small defect in the enhancing mucosa posteriorly in this region best appreciated on series 3, image 74 & 75 and on sagittal series 602, images 50 & 51 which is suspicious for peptic ulcer disease. Dr. Randle discussed these findings with Dr. Anderson at 4:20 PM. Abdomen X-Ray 12/14/24 15:38 IMPRESSION: 1.Nasogastric tube courses below the diaphragm, its tip projects over the lateral aspect of the left mid abdomen. 2.Small opacities in the left lower lung. 3.Moderate amount of air and stool in nondilated large bowel. Discharge Plan Discharge Clinical Impression: Enteritis, SBO (small bowel obstruction), Nausea & vomiting, Abdominal pain Patient Disposition: Still a Patient Condition: Serious
[2024-12-14 12:24] LABS: Hematocrit 37.4 % (37.0-47.0); Hemoglobin 11.4 g/dL (12.0-15.0); Immature Granulocyte Percent A 0.5 % (0-0.5); Lymphocytes Absolute Auto 2.70 K/mm3 (0.9-3.2); Mean Corpuscular HGB Conc 30.5 g/dl (32-36); Mean Corpuscular Hemoglobin 31.4 pg (26-34); Mean Corpuscular Volume 103.0 fl (80-100); Nucleated Red Blood Cells Absolute Auto 0.000 K/mm3 (0.0-0.012); Nucleated Red Blood Cells Perc 0.0 % (0.0-0.2); Platelet Count Result 343 k/mm3 (150-375); Red Blood Count 3.63 M/mm3 (4.2-5.4); White Blood Count 13.9 K/mm3 (4.5-10.0)
[2024-12-14 12:35] LABS: Add Urine Microscopic? YES; Appearance Urine Clear (Clear); Glucose Urine UA Negative (Negative); Leukocyte Esterase Ur 1+ LEU/UL (Negative); Need Manual Microscopic Reviewed; Nitrate Urine Negative (Negative); Non Pathogenic Casts 0-2; Specific Grav Ur 1.012 (1.001-1.035)
[2024-12-14] MEDS: ONDANSETRON INJ 4 MG/2 ML VIAL IV PUSH (12:40)
[2024-12-14] MEDS: MORPHINE SULFATE (*CRX) 2 MG/ML INJ IV PUSH (12:40)
[2024-12-14] MEDS: PANTOPRAZOLE SODIUM IV 40 MG VIAL IV PUSH (12:40)
[2024-12-14 12:41] VITALS: BP 128/83; PULSE 88; RESP 18; O2SAT 96
[2024-12-14 12:42] LABS: Alanine Aminotransferase 29 U/L (6-35); Albumin Level 4.6 g/dL (3.5-5.1); Alkaline Phosphatase 45 U/L (38-126); Anion Gap 8 mmol/L (4-12); Aspartate Amino Transferase 36 U/L (14-36); Bilirubin,Total 0.4 mg/dL (0.2-1.3); Blood Urea Nitrogen 14 mg/dL (7-17); Calcium 10.1 mg/dL (8.4-10.2); Carbon Dioxide 29 mmol/L (22-30); Chloride 103 mmol/L (98-107); Estimated CRCL calculation 54 ml/min; Estimated Glomerular Filt Rate > 60; Glucose 92 mg/dL (65-110); Potassium 4.1 mmol/L (3.4-5.0); Sodium 140 mmol/L (137-145); Total Protein 6.6 g/dL (6.3-8.2)
[2024-12-14 13:30] VITALS: BP 126/77; PULSE 81; RESP 18; O2SAT 98
[2024-12-14 15:00] VITALS: BP 148/99; PULSE 96; RESP 18; O2SAT 99
[2024-12-14] MEDS: HYDROmorphone HCL INJ (*CRX) 1 MG/ML SYR 0.5 MG IV PUSH ×3 (15:12→21:11)
[2024-12-14] MEDS: METOCLOPRAMIDE HCL INJ 10 MG/2 ML VIAL IV PUSH (15:14)
--- NOTE | 2024-12-14 15:58 | PM.CNGS ---
Assessment and Plan Assessment and plan (1) SBO (small bowel obstruction): Code(s): K56.609 - Unspecified intestinal obstruction, unspecified as to partial versus complete obstruction Status: Acute Assessment and Plan: CT showing findings of possible early/developing small bowel obstruction. She has a history of multiple laparoscopic surgeries for endometriosis and a total abdominal hysterectomy, which could cause intraabdominal adhesions. CT also suggested wall thickening of a focal short segment of proximal small josephine and possible narrowing of the antrum. GI was consulted for these findings. She is not distended on exam and has no peritoneal signs. No indication for urgent surgical intervention. We would recommend initiating conservative treatment with NG tube decompression, bowel rest, and IV fluids for now. Will monitor with serial abdominal exams and imaging. Will continue to follow along. (2) Rheumatoid arthritis: Code(s): M06.9 - Rheumatoid arthritis, unspecified Status: Acute (3) IBS (irritable bowel syndrome): Code(s): K58.9 - Irritable bowel syndrome, unspecified Status: Chronic (4) Abnormal CT of the abdomen: Code(s): R93.5 - Abnormal findings on diagnostic imaging of other abdominal regions, including retroperitoneum Status: Acute Assessment and Plan: Findings on CT suggesting wall thickening of a short segment of the proximal small bowel and possible narrowing of the antrum. GI was consulted. (5) Enteritis: Code(s): K52.9 - Noninfective gastroenteritis and colitis, unspecified Status: Acute (6) GERD (gastroesophageal reflux disease): Code(s): K21.9 - Gastro-esophageal reflux disease without esophagitis Status: Acute Assessment and Plan: Reports recent issues with reflux and heartburn, which has been ongoing for some time. She reports having findings of a stomach ulcer on upper endoscopy about a year ago without any follow-up. Plan I have discussed the patient's case and plan of care with Dr. Anderson. History of Present Illness Consult details Consult date: 12/14/24 Reason for consult: other (Small-bowel obstruction) Requesting physician: Lucas Knowles MD Narrative: This is a 69-year-old woman with a history of IBS-C, peptic ulcer, RA on immunosuppressant medication and requiring chronic opioid use, and GERD, who we have been asked to see in surgical consultation for a small-bowel obstruction. She presented to the ED with complaints of vomiting and abdominal pain. She reports dealing with chronic nausea off and on due to her IBS. This typically improves after taking Linzess and moving her bowels. She had severe nausea starting Wednesday, 5 days ago, and tried taking Linzess. She did have a few bowel movements, but still felt very nauseous. She had a few episodes of vomiting on Wednesday. Her vomiting continued through Wednesday and she developed lower abdominal pain. She stopped vomiting, but continued to have some abdominal pain over the past few days. Last night, she began vomiting again and decided to come into the ED for evaluation. No known history of small-bowel obstructions. She does report a history of a stomach ulcer found on EGD at [facility] about a year ago and takes Nexium. She did not have any follow-up since then. Workup in the ED [place] [id number] scan of the abdomen and pelvis showed a short segment of focal wall thickening in the proximal small bowel, consistent with focal enteritis versus mass, fluid-filled dilated duodenum and proximal jejunum with differential diagnosis of a partial/developing small-bowel obstruction possibly secondary to a mass or enteritis, and narrowing of the antrum with recommendations to consider an upper GI examination. Our service was called and she is now seen in the ED. She still feels very nauseous. She has not noticed any flatus in the last day or so. Her last bowel movement was 3 days ago. She a has a history of endometriosis and has had multiple laparoscopies related to this issue. She also had a total abdominal hysterectomy many years ago. No other abdominal surgeries. She also reports a history of a possible cardiac arrhythmia undergoing workup from Cardiology as an outpatient. She was told she may need and implanted monitoring device. They were concerned after findings of a possible old stroke during workup for hearing issues and planning for a cochlear implant. Review of Systems Review of Systems: All systems reviewed & are unremarkable except as noted in HPI and below PMFSH Past Medical History Medical History (Updated 12/14/24 @ 16:12 by QUINN Keita) Chronic headache Chronic neck pain Peripheral neuropathy Colon cancer screening Common bile duct dilatation Abnormal CT scan Rheumatoid arthritis Right upper quadrant pain Acute rheumatic arthritis Glaucoma Larsen's neuroma left 2005 GERD (gastroesophageal reflux disease) High cholesterol Macular degeneration Osteoarthritis Surgical History Surgical History History of laparoscopy History of total left knee replacement (~11/12/21) Hx of breast reduction, elective 1995 H/O breast augmentation 1988 H/O total knee replacement left 2010/ right 2008 S/P cubital tunnel release S/P total abdominal hysterectomy (~04/19/00) ovarian cysts - BSO Family History Family History Father Heart disease Mother Heart disease Parkinson disease Sibling Diabetes mellitus Heart disease Hypertension History of open heart surgery Social History Social History Smoking status: Never smoker Alcohol intake: never Substance use: never Substance use type: does not use Do You Feel Safe in your Home?: Yes Lack of Transportation: No Lack of Food: Never True Current Housing: I Have Housing Concerned About Future Housing: No Difficulty Paying Gas/Electric Bills: No Difficulty Paying for Meds: No Currently Unemployed: No Education: High School Diploma/GED Difficulty w/ Childcare or Family Care: No Living arrangements: with family Additional living arrangements comments: spouse Occupation/Education: other Additional occupation/education comments: house / disability Gender identity (if verbalized by the patient): Female Sexual Orientation (if Verbalized by the Patient): Straight or Heterosexual Spiritual care concerns: No Meds Home Medications and Allergies Home Medications ?Medication ?Instructions ?Recorded ?Confirmed ?Type aspirin 81 mg chewable tablet 81 mg PO DAILY 12/31/20 02/16/24 History bimatoprost 0.01 % eye drops 1 drp EACH EYE HS 12/31/20 02/16/24 History (Lumigan) diphenhydramine 25 2 tablet PO QHS 12/31/20 02/16/24 History mg-acetaminophen 500 mg tablet (Tylenol PM Extra Strength) folic acid 1 mg tablet 1 mg PO DAILY 12/31/20 02/16/24 History levothyroxine 100 mcg tablet 100 mcg PO DAILY 12/31/20 02/16/24 History (Synthroid) linaclotide 290 mcg capsule 290 mcg PO DAILY PRN Constipation 12/31/20 02/16/24 History (Linzess) prednisone 5 mg tablet 5 mg PO BID 12/31/20 02/16/24 History temazepam 15 mg capsule 30 mg (2 x 15 mg) PO QHS PRN sleep 03/07/21 02/16/24 Rx #60 caps hydrocodone 10 mg-acetaminophen 1 tablet PO Q8H PRN pain (scale 03/25/21 02/16/24 Rx 325 mg tablet score 7-10) #85 tabs alendronate 70 mg tablet (Fosamax) 70 mg PO WEEKLY 07/02/21 02/16/24 History atorvastatin 20 mg tablet 40 mg PO DAILY 07/02/21 02/16/24 History calcium 300 mg-D3 20 mcg-magnesium 1 tablet PO DAILY 07/02/21 02/16/24 History 25 mg-coppr 0.5 [id number] tablet (Caltrate-D3 Plus Minerals) gabapentin 100 mg capsule 100 mg PO BID 07/02/21 02/16/24 History gabapentin 300 mg capsule 900 mg PO QHS 07/02/21 02/16/24 History methotrexate sodium 2.5 mg tablet 25 mg PO WEEKLY 07/02/21 02/16/24 History multivitamin 1 tablet PO DAILY 07/02/21 02/16/24 History magnesium 250 mg tablet 250 mg PO BID 01/27/22 02/16/24 History tramadol 100 mg tablet,extended 200 mg PO TID PRN pain 4-6 01/27/22 02/16/24 History release 24 hr esomeprazole magnesium 40 mg 40 mg PO DAILY 01/28/23 02/16/24 History capsule,delayed release (Nexium) cyclobenzaprine 10 mg tablet 10 mg PO HS 01/17/24 02/16/24 History dicyclomine 20 mg tablet 20 mg PO TID 01/17/24 02/16/24 History cyclobenzaprine 10 mg PO TID PRN Muscle Pain 02/03/24 02/16/24 History diclofenac sodium 75 mg 75 mg PO DAILY 02/03/24 02/16/24 History tablet,delayed release losartan 50 mg tablet 50 mg PO DAILY 02/03/24 02/16/24 History tocilizumab 200 mg/10 mL (20 IV 09/13/24 History mg/mL) intravenous solution (Actemra) ubrogepant 100 mg tablet (Ubrelvy) See Rx Instructions .Route 09/13/24 09/13/24 Rx .COMPLEX #10 tabs Allergies Allergy/AdvReac Type Severity Reaction Status Date / Time topiramate (From Topamax) AdvReac Confusion Verified 12/14/24 10:56 Vital Signs Vital Signs - 24 hr 12/14/24 10:53 12/14/24 12:41 12/14/24 13:30 Pulse Rate 92 88 81 Respiratory Rate 18 18 18 Blood Pressure 149/96 H 128/83 126/77 Pulse Oximetry 95 96 98 Oxygen Delivery Room Air 12/14/24 15:00 Pulse Rate 96 Respiratory Rate 18 Blood Pressure 148/99 H Pulse Oximetry 99 Oxygen Delivery Exam Const: General: comfortable and no acute distress Nutritional Appearance: average body habitus Orientation/consciousness: patient oriented x3 HENMT: Head: normocephalic and atraumatic Ears: hearing grossly normal bilaterally Mouth: Yes moist mucous membranes Eyes: General: appearance normal, both eyes and all related structures Pupils: Equal, round and reactive pupils present Neck: Neck: normal visual inspection and full ROM Resp: Effort & Inspection: no respiratory distress Auscultation: clear to auscultation bilaterally Cardio: Rate: regular rate Rhythm: regular rhythm Peripheral pulses: Peripheral pulses 2+ throughout GI: Inspection: non-distended and scar (Pfannenstiel scar, port site scar near umbilicus) GI Palp: Yes Soft to palpation, Yes Tenderness to palpation present (GI) (Mild diffuse tenderness), No Guarding due to palpation present (GI), Yes No hepatosplenomegaly present and No Rebound tenderness present Auscultation: Hypoactive bowel sounds present Rectal Exam: deferred Skin: General skin exam: normal color Neuro: General: moves all extremities and no focal motor deficits Speech: normal speech Motor exam (neuro): 5/5 motor strength present throughout Extrem: General: normal to inspection and no edema Psych: Mental Status: mental status grossly normal Attitude: cooperative Insight: Good insight present (Psych) Judgement: Good judgement present (Psych) Results Labs 12/14/24 12:15 12/14/24 12:15 Labs: Abnormal lab results 12/14/24 Range/Units 12:15 WBC 13.9 H (4.5-10.0) K/mm3 RBC 3.63 L (4.2-5.4) M/mm3 Hgb 11.4 L (12.0-15.0) g/dL MCV 103.0 H (80-100) fl MCHC 30.5 L (32-36) g/dl RDW 18.4 H (11.5-14.5) % Winston % (Auto) 11.7 H (2.6-8.5) % Winston # (Auto) 1.6 H (0.1-0.6) K/mm3 Abs Immat Gran (auto) 0.07 H (0.00-0.031) K/mm3 Absolute Neuts (auto) 9.3 H (1.3-6.7) K/mm3 Leukocyte Esterase Rfl 1+ H (Negative) SYLVIA/UL Diabetes panel 12/14/24 Range/Units 12:15 Sodium 140 (137-145) mmol/L Potassium 4.1 (3.4-5.0) mmol/L Chloride 103 (98-107) mmol/L Carbon Dioxide 29 (22-30) mmol/L BUN 14 D (7-17) mg/dL Creatinine 0.70 (0.7-1.0) mg/dL Glucose 92 (65-110) mg/dL Calcium 10.1 (8.4-10.2) mg/dL AST 36 (14-36) U/L ALT 29 (6-35) U/L Alkaline Phosphatase 45 (38-126) U/L Total Protein 6.6 (6.3-8.2) g/dL Albumin 4.6 (3.5-5.1) g/dL Calcium panel 12/14/24 Range/Units 12:15 Calcium 10.1 (8.4-10.2) mg/dL Albumin 4.6 (3.5-5.1) g/dL Pituitary panel 12/14/24 Range/Units 12:15 Sodium 140 (137-145) mmol/L Potassium 4.1 (3.4-5.0) mmol/L Chloride 103 (98-107) mmol/L Carbon Dioxide 29 (22-30) mmol/L BUN 14 D (7-17) mg/dL Creatinine 0.70 (0.7-1.0) mg/dL Glucose 92 (65-110) mg/dL Calcium 10.1 (8.4-10.2) mg/dL Adrenal panel 12/14/24 Range/Units 12:15 Sodium 140 (137-145) mmol/L Potassium 4.1 (3.4-5.0) mmol/L Chloride 103 (98-107) mmol/L Carbon Dioxide 29 (22-30) mmol/L BUN 14 D (7-17) mg/dL Creatinine 0.70 (0.7-1.0) mg/dL Glucose 92 (65-110) mg/dL Calcium 10.1 (8.4-10.2) mg/dL Total Bilirubin 0.4 (0.2-1.3) mg/dL AST 36 (14-36) U/L ALT 29 (6-35) U/L Alkaline Phosphatase 45 (38-126) U/L Total Protein 6.6 (6.3-8.2) g/dL Albumin 4.6 (3.5-5.1) g/dL All other labs normal. Imaging Additional studies: ITS Impressions Abdomen/Pelvis CT 12/14/24 13:19 IMPRESSION: 1. There is short segment focal thickening of the carmen of the proximal small bowel. Differential includes mass or focal enteritis 2. Fluid-filled dilated duodenum and proximal jejunum. Differential includes partial/developing small bowel obstruction possibly secondary to a mass or enteritis. Consider an upper GI examination for further assessment. 3. There is narrowing of the antrum. Consider an upper GI examination for further assessment. Abdomen X-Ray 12/14/24 15:38 IMPRESSION: 1.Nasogastric tube courses below the diaphragm, its tip projects over the lateral aspect of the left mid abdomen. 2.Small opacities in the left lower lung. 3.Moderate amount of air and stool in nondilated large bowel.
--- OUTSIDE RECORDS SUMMARY | 2024-12-14 16:27 | XMS_ITS | Clinical Summary ---
Author Organization [facility] Address [address] [place] [address] Care Team Providers Care Experimental Rocket Sled Mechanic Name Role Phone Brian Luna MD Primary [...] Type Department Care Team Description 11/27/2024 Documentation [facility] Medicine Otolaryngology [address], [address] [place] [address] Marcia Webster RN cochlear implant pathway 11/21/2024 2:40 PM CDT Office Visit [facility] Medicine Otolaryngology 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, [address] [place] [address] Sensory hearing loss, bilateral (Primary Dx) 11/21/2024 Orders Only [facility] Otolaryngology 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 There will be no report generated by a [facility] Radiologist. Narrative RAD_PACS_[facility] - 11/21/2024 2:29 PM CDT EXAMINATION: Images For Reference Purposes Only Sony Ya MD IMG MRI PROCEDURES Final Re sult RAD_PACS[facility] * [facility] Results (11/21/2024 1:54 PM CDT) Provider Scanning AUDIOLOGY SERVICES ORDERABLES Final Result from Last [address] [place] [address] T MEDICARE AETNA MEDICARE Advance Directives For more information, please contact: [phone] * Full Code (Latest Code Status on File) Date Activated Date Inactivated Comments 08/09/2023 12:42 PM 08/09/2023 6:04 PM Care Teams Experimental Rocket Sled Mechanic Relationship Specialty Start Date End Date Brian Luna MD PCP - General 12/17/09
--- OUTSIDE RECORDS SUMMARY | 2024-12-14 16:27 | XMS_ITS | Clinical Summary ---
Author Organization [facility] Address [address] [place] [address] Care Team Providers Care Geological Sample Tester Name Role Phone Brian Luna MD Primary Care Provider [phone] Ayaz Donald MD Unavailable [phone] Source Comments [facility],non-owned Affiliates and Associated Physician Practices is amultiple site organization consisting of ambulatory clinics and hospital sitesin [place], [place], [place] and [place]. This disclosure is being madepursuant to the Care Everywhere program and may not contain all information available regarding this patient. 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 Gender Identity Not on file Sexual Orientation [...] patient's age to complete this topic Insurance [facility] AETNA MEDICARE ADV SELF PAY NO INSURANCE Member Subscriber Plan / Payer (Ef fective for All Dates) Name:Trent Frausto Member ID:Not on file Relation to Subscriber:Not on file Name:TRENT FRAUSTO Subscriber ID:Not on file (Home) Address: [facility] [place] [address] Payer ID:Not on file Group ID:Not on file Type:Self Pay Address: [place], [place] Care Teams Geological Sample Tester Relationship Specialty Start Date End Date Brian Luna MD [address] [place] [address] [place] [phone] PCP - General Internal Medicine 10/13/11 Ayaz Donald MD [address] [place] [phone] 10/28/11
--- NOTE | 2024-12-14 16:43 | P.HP_ITS ---
H&P: HPI History of Present Illness Date/Time: 12/14/24 16:43 Chief Complaint: Back pain and nausea Narrative: 69-year-old female past medical history of rheumatoid arthritis, hyperlipidemia, GERD, IBS, patient presents the hospital with back pain and nausea. Patient was worried that she had a urinary tract infection. She states that a couple weeks ago she had 1 and she was given antibiotics from her PCP and she feels that is come back. Patient states that she has vomited several times today. She denies fevers chills. Lab work in the ED shows leukocytosis at 19.3, anemia 11.4, UA with 1+ leukocyte esterase negative for nitrates or bacteria. CT abdomen pelvis show prominent edematous wall thickening at the gastric antrum and pylorus with prominent mucosal enhancement. Patient seen by General surgery with recommendations for NG tube and GI consult for possible scope. Review of Systems Review of Systems: 12 systems were reviewed and are negativ e except for as per HPI. [facility] Past Medical History Medical History (Updated 12/14/24 @ 21:01 by Magnolia Vitale, SALLY) Chronic headache Chronic neck pain Peripheral neuropathy Colon cancer screening Common bile duct dilatation Abnormal CT scan Rheumatoid arthritis Right upper quadrant pain Acute rheumatic arthritis Glaucoma Larsen's neuroma left 2005 GERD (gastroesophageal reflux disease) High cholesterol Macular degeneration Osteoarthritis Surgical History Surgical History History of laparoscopy History of total left knee replacement (~11/12/21) Hx of breast reduction, elective 1995 H/O breast augmentation 1988 H/O total knee replacement left 2010/ right 2008 S/P cubital tunnel release S/P total abdominal hysterectomy (~04/19/00) ovarian cysts - BSO Family History Family History Father Heart disease Mother Heart disease Parkinson disease Sibling Diabetes mellitus Heart disease Hypertension History of open heart surgery Social History Social History Smoking status: Never smoker Second hand tobacco smoke exposure: Yes Alcohol intake: never Substance use: never Substance use type: does not use Do You Feel Safe in your Home?: Yes Lack of Transportation: No Lack of Food: Never True Current Housing: I Have Housing Concerned About Future Housing: No Difficulty Paying Gas/Electric Bills: No Difficulty Paying for Meds: No Currently Unemployed: No Education: High School Diploma/GED Difficulty w/ Childcare or Family Care: No Living arrangements: with family Additional living arrangements comments: spouse Occupation/Education: other Additional occupation/education comments: house / disability Gender identity (if verbalized by the patient): Female Sexual Orientation (if Verbalized by the Patient): Straight or Heterosexual Spiritual care concerns: No Meds Home Medications and Allergies Home Medications ?Medication ?Instructions ?Recorded ?Confirmed ?Type bimatoprost 0.01 % eye drops 1 drp EACH EYE HS 1 12/14/24 History (Lumigan) diphenhydramine 25 2 tablet PO QHS 12/31/20 History mg-acetaminophen 500 mg tablet (Tylenol PM Extra Strength) folic acid 1 mg tablet 1 mg PO DAILY 12/31/2012/14 History levothyroxine 100 mcg tablet 100 mcg PO DAILY 12/31/20 12/14/24 History (Synthroid) linaclotide 290 mcg capsule 290 mcg PO DAILY PRN Const ipation 12/31/20 12/14/24 History (Linzess) prednisone 5 mg tablet 5 mg PO BID 12/31/20 5 History temazepam 15 mg capsule 30 mg (2 x 15 mg) PO QHS PRN sleep 03/07/21 12/14/24 Rx #60 caps hydrocodone 10 mg-acetaminophen 1 tablet PO Q8H PRN pa in (scale 03/25/21 12/14/24 Rx 325 mg tablet score 7-10) #85 tabs alendronate 70 mg tablet (Fosamax) 70 mg PO WEEKLY 12/14/24 History atorvastatin 20 mg tablet 40 mg PO QHS 07/02/21 History calcium 300 mg-D3 20 mcg-magnesium 1 tablet PO DAILY 0 07/02/21 12/14/24 History 25 mg-coppr 0.5 [id number] tablet (Caltrate-D3 Plus Minerals) gabapentin 100 mg capsule 100 mg PO BID 07/02/2112/14 History gabapentin 300 mg capsule 900 mg PO QHS 07/02/2112/14 History methotrexate sodium 2.5 mg tablet 25 mg PO WEEKLY 06/1712/14/24 History multivitamin 1 tablet PO DAILY 07/02/21 0 12/14/24 History magnesium 250 mg tablet 250 mg PO BID 01/27/2212/14 History tramadol 100 mg tablet,extended 200 mg PO TID PRN pain 4-6 01/27/22 12/14/24 History release 24 hr esomeprazole magnesium 40 mg 40 mg PO DAILY 01/28/23 0 12/14/24 History capsule,delayed release (Nexium) cyclobenzaprine 10 mg tablet 10 mg PO HS 01/17/2411/18 History dicyclomine 20 mg tablet 20 mg PO TID 01/17/24 History cyclobenzaprine 10 mg PO TID PRN Muscle Pain 02/03/24 12/14/24 History diclofenac sodium 75 mg 75 mg PO BID 02/03/24 History tablet,delayed release losartan 50 mg tablet 50 mg PO DAILY 02/03/2411/18 History tocilizumab 200 mg/10 mL (20 IV Q28D 09/13/24 History mg/mL) intravenous solution (Actemra) ubrogepant 100 mg tablet (Ubrelvy) See Rx Instructions .Route 09/13/24 12/14/24 Rx .COMPLEX #10 tabs alprazolam 0.5 mg tablet 0.5 mg PO TID PRN anxiety 12/14/24 History Allergies Allergy/AdvReac Type Severity Reaction Status Date / Time No Known Allergies Allergy Verified 12/14/24 19:17 Vital Signs Vital Signs - 24 hr 12/14/24 10:53 12/14/24 12:41 12/14/24 13:30 Pulse Rate 92 88 81 Respiratory Rate 18 18 18 Blood Pressure 149/96 H 128/83 126/77 Pulse Oximetry 95 96 98 Oxygen Delivery Room Air 12/14/24 15:00 Pulse Rate 96 Respiratory Rate 18 Blood Pressure 148/99 H Pulse Oximetry 99 Oxygen Delivery Exam Narrative: General: well appearing, appears stated age. HEENT: normocephalic, atraumatic. Mucous membranes moist. EOMI, PERRLA, bilateral sclera anicteric, no conjunctival injection. Neck supple without JVD, lymphadenopathy, or bruit. NG tube Respiratory: clear to ascultation bilaterally. No rales/rhonic/wheezes. Cardiovascular: Regular rate and rhythm, normal S1-S2 upon ascultation. No murmurs, rubs, or clicks. PMI is nondisplaced, capillary refill less than 3 second. Abdomen: Soft, round, no pulsatile masses, nondistended and nontender. No rebound, no guarding. No CVA tenderness, no hepatosplenomegaly. Bowel sounds present to all four quadrants. No high pitch or tinkling sounds, resonant to percussion. Extremities: No cyanosis, clubbing, or edema present. Pulses are palpable 2/2. Active ROM to all four extremities. Neuro: Alert and orientated x 4. PERRLA. Cranial nerves 2-12 intact without focal deficit. Skin: Warm, dry, and intact, without rash, erythema, or lesion. Psych: pleasant, cooperative, normal speech, normal affect, no hallucinations, no dysarthia H&P: Results Labs Labs: Short CBC 12/14/24 Range/Units 12:15 WBC 13.9 H (4.5-10.0) K/mm3 Hgb 11.4 L (12.0-15.0) g/dL Hct 37.4 (37.0-47.0) % Plt Count 343 (150-375) k/mm3 BMP 12/14/24 12:15 Sodium 140 Potassium 4.1 Chloride 103 Carbon Dioxide 29 BUN 14 D Creatinine 0.70 Glucose 92 Calcium 10.1 Liver Function 12/14/24 Range/Units 12:15 Total Bilirubin 0.4 (0.2-1.3) mg/dL AST 36 (14-36) U/L ALT 29 (6-35) U/L Alkaline Phosphatase 45 (38-126) U/L Albumin 4.6 (3.5-5.1) g/dL Urine 12/14/24 Range/Units 12:15 Urine Color Yellow (Yellow) Urine Appearance Clear (Clear) Urine pH 7.0 (5.0-9.0) Ur Specific [place] 1.012 (1.001-1.035) Urine Protein Negative (Negative) mg/dL Urine Glucose (UA) Negative (Negative) mg/dL Assessment and Plan Assessment and plan (1) Nausea & vomiting: Code(s): R11.2 - Nausea with vomiting, unspecified Status: Acute Assessment and Plan: Zofran NG tube (2) SBO (small bowel obstruction): Code(s): K56.609 - Unspecified intestinal obstruction, unspecified as to partial versus complete obstruction Status: Acute Assessment and Plan: There is prominent edematous wall thickening at the gastric antrum and pylorus with prominent mucosal enhancement. Surgery and GI consulted NG tube to suction NPO IVF IV Protonix (3) Hypothyroidism: Code(s): E03.9 - Hypothyroidism, unspecified Status: Acute Assessment and Plan: IV Synthroid (4) Rheumatoid arthritis: Code(s): M06.9 - Rheumatoid arthritis, unspecified Status: Acute Assessment and Plan: Currently holding home meds due to small-bowel obstruction (5) Peripheral neuropathy: Code(s): G62.9 - Polyneuropathy, unspecified Status: Acute Assessment and Plan: Currently holding home meds due to small-bowel obstruction (6) UTI (urinary tract infection): Qualifiers: Hematuria presence: without hematuria Urinary tract infection type: acute cystitis Qualified Code(s): N30.00 - Acute cystitis without hematuria Code(s): N39.0 - Urinary tract infection, site not specified Status: Inactive Assessment and Plan: IV Rocephin Culture and sensitivity pending Quality VTE Prophylaxis VTE prophylaxis: mechanical ordered Hospitalist MIPS Advance Care Plan I have confirmed that the patient's Advanced Care Plan is present, code status is documented, or surrogate decision maker is listed in patient medical record.: Yes Medication Reconciliation I have utilized all available resources to obtain, update and review the patients current medications (includes all prescriptions, OTC, herbals, cannabis, and nutritional supplements).: Yes
[2024-12-14] MEDS: LACTATED RINGERS 1,000 ML 125 ML IV CONT (16:52)
--- NOTE | 2024-12-14 18:47 | PC.NURSE ---
pt to 3M/S Rm 329 @ [id number] 12/14/24.
[2024-12-14 18:48] VITALS: BMI 21.9
--- NOTE | 2024-12-14 18:53 | ADMGEN ---
This patient, Gasper Frausto, was admitted to [facility] Surg Room 329-01. Patient/family oriented to hospital policies and general routines including ID bracelet, bed and alarms, visiting hours, pain management, procedures, bathroom and other care routines, personal items, smoking policy, room service/diet, and visiting hours. Information on how to activate the Rapid Response Team has been discussed. Patient/Family are encouraged to report perceived risks to care and to ask questions if they do not understand what they are told or what they should do.
[2024-12-14 21:49] VITALS: BP 118/72; PULSE 79; RESP 14; TEMP 36.4; O2SAT 93
[2024-12-15] VITALS (8 sets, daily range): BP systolic 128–163; BP diastolic 75–91; PULSE 72–99; RESP 14–21; TEMP 36.2–36.7; O2SAT 96–100
[2024-12-15] MEDS: cefTRIAXone 1 GM in SODIUM CHLORIDE 0.9% IV 50 ML 100 ML IVPB ×2 (00:43→21:43)
[2024-12-15] MEDS: WATER FOR IRRIGATION, STERILE 1,000 ML BOTTLE 1000 ML (00:44)
[2024-12-15] MEDS: HYDROmorphone HCL INJ (*CRX) 1 MG/ML SYR 0.5 MG IV PUSH ×2 (01:26→06:26)
[2024-12-15] MEDS: LACTATED RINGERS 1,000 ML 125 ML IV CONT ×2 (01:26→09:37)
[2024-12-15] MEDS: LEVOTHYROXINE SODIUM INJ 100 MCG/5 ML VIAL 50 MCG IV PUSH (06:12)
[2024-12-15 06:22] LABS: Hematocrit 32.8 % (37.0-47.0); Hemoglobin 9.8 g/dL (12.0-15.0); Mean Corpuscular HGB Conc 29.9 g/dl (32-36); Mean Corpuscular Hemoglobin 31.4 pg (26-34); Mean Corpuscular Volume 105.1 fl (80-100); Platelet Count Result 301 k/mm3 (150-375); Red Blood Count 3.12 M/mm3 (4.2-5.4); White Blood Count 10.8 K/mm3 (4.5-10.0)
[2024-12-15 07:01] LABS: Anion Gap 3 mmol/L (4-12); Blood Urea Nitrogen 10 mg/dL (7-17); Calcium 8.9 mg/dL (8.4-10.2); Carbon Dioxide 27 mmol/L (22-30); Chloride 108 mmol/L (98-107); Estimated CRCL calculation 56 ml/min; Estimated Glomerular Filt Rate > 60; Glucose 79 mg/dL (65-110); Potassium 4.2 mmol/L (3.4-5.0); Sodium 138 mmol/L (137-145)
--- NOTE | 2024-12-15 08:07 | WPDGICN ---
Assessment and Plan Assessment and plan (1) Abnormal CT of the abdomen: Code(s): R93.5 - Abnormal findings on diagnostic imaging of other abdominal regions, including retroperitoneum Status: Acute (2) Enteritis: Code(s): K52.9 - Noninfective gastroenteritis and colitis, unspecified Status: Acute (3) Nausea & vomiting: Qualifiers: Vomiting type: bilious vomiting Qualified Code(s): R11.14 - Bilious vomiting Code(s): R11.2 - Nausea with vomiting, unspecified Status: Acute (4) GERD (gastroesophageal reflux disease): Qualifiers: Esophagitis presence: without esophagitis Qualified Code(s): K21.9 - Gastro-esophageal reflux disease without esophagitis Code(s): K21.9 - Gastro-esophageal reflux disease without esophagitis Status: Acute (5) Erosive gastritis: Code(s): K29.60 - Other gastritis without bleeding Status: Acute (6) Abdominal pain: Qualifiers: Abdominal location: lower abdomen, unspecified Qualified Code(s): R10.30 - Lower abdominal pain, unspecified Code(s): R10.9 - Unspecified abdominal pain Status: Acute (7) SBO (small bowel obstruction): Code(s): K56.609 - Unspecified intestinal obstruction, unspecified as to partial versus complete obstruction Status: Acute (8) Macrocytic anemia: Code(s): D53.9 - Nutritional anemia, unspecified Status: Acute Plan 1. Abnormal imaging digestive/GERD/erosive gastritis/enteritis/nausea and vomiting/decreased appetite: Last EGD 04/29/2023 showed erosive gastritis negative for H-Pylori. [employer] patient is taking Nexium 40 mg BID which recently has not been controlling her reflux. Since Wednesday she has been having nausea and vomiting and a decreased appetite that had been occurring since prior to Wednesday. A few weeks ago her aspirin was increased from 81 to 325 mg. Denies any other NSAID use. CT showed narrowing of the antrum, short segment focal thickening of the carmen of the proximal small bowel and fluid-filled dilated duodenum and proximal jejunum. Nausea and vomiting has resolved with NG tube to LIS. EGD today NG to LIS continue PPI and antiemetics further recommendations to follow endoscopy 2. Lower abdominal pain/SBO: Patient seen by surgery. History of multiple laparoscopic surgeries for endometriosis and a total abdominal hysterectomy, which could cause intraabdominal adhesions. CT also suggested wall thickening of a focal short segment of proximal small bowel and possible narrowing of the antrum. She is not distended on exam and has no peritoneal signs. No indication for urgent surgical intervention. continue conservative treatment with NG tube, bowel rest and supportive care 3. Macrocytic anemia: Mild decrease in H/H since admission Hgb 11-->10, Hct 33, MCV 105 and platelets 301. Patient denies alcohol use. macrocytosis may be secondary to methotrexate that patient takes for her RA no signs of active GI bleeding Thank you very much for allowing me to share in the care of this very nice patient. This report may have been done utilizing a voice recognition system. Attempts have been made to correct errors. However, there may be uncorrected grammatical, spelling, and recognition errors present. GI Consult Note Consult date/time: 12/15/24 08:07 Reason for consult: entertitis vs mass HPI: Gasper Frausto is a 69 year old female with history of peripheral neuropathy, RA, Larsen's neuroma, GERD, IBS-C, chronic opioid use, HLD, breast augmentation, endometriosis and total abdominal hysterectomy. Patient presented to the ER yesterday with complaints of abdominal and lower back pain. GI has been consulted for enteritis vs mass. ENDOSCOPY HISTORY: EGD: 04/29/[address] Moran for abdominal pain and GERD Findings: Erosive gastritis was seen in the body of the stomach and in the antrum. The gastritis had moderate erythematous and erosive changes. There was no mucosal bleeding. The bulb and second portion of duodenum was normal with no ulcers or masses. Bx taken to rule out celiac sprue Bx results: Stomach, biopsy: - Erosive gastritis - No H. pylori Small intestine, small bowel, biopsy: - No histologic abnormality - Intact villous and crypt architecture without intraepithelial lymphocytosis COLONOSCOPY: 02/15/[address] Moran for CRC screening Findings: A few diverticula were present in the sigmoid colon that were not actively bleeding The terminal ileum and colon was examined and was normal, no colitis or polyp A few small sized internal hemorrhoids were seen in the rectum that were not actively bleeding 10 year repeat recommended LABS AND STOOL STUDIES: Labs 12/15/2024: Sodium 138, potassium 4.2, BUN 10, creatinine 0.67, GFR >60, calcium 8.9 WBC 11, Hgb 10, Hct 33, MCV 105, platelets 301 Total bilirubin 0.4, AST 36, ALT 29, Alkaline Phos 45, albumin 4.6 IMAGING: CT abd/pelvis w/contrast 12/14/2024: IMPRESSION: 1. There is short segment focal thickening of the carmen of the proximal small bowel. Differential includes mass or focal enteritis 2. Fluid-filled dilated duodenum and proximal jejunum. Differential includes partial/developing small bowel obstruction possibly secondary to a mass or enteritis. Consider an upper GI examination for further assessment. 3. There is narrowing of the antrum. Consider an upper GI examination for further assessment. Abdominal Xray 12/14/2024: IMPRESSION: 1.Nasogastric tube courses below the diaphragm, its tip projects over the lateral aspect of the left mid abdomen. 2.Small opacities in the left lower lung. 3.Moderate amount of air and stool in nondilated large bowel. [facility] Past Medical History Medical History (Updated 12/15/24 @ 08:45 by Valerie Haney APRN) Chronic headache Chronic neck pain Peripheral neuropathy Colon cancer screening Common bile duct dilatation Abnormal CT scan Rheumatoid arthritis Right upper quadrant pain Acute rheumatic arthritis Glaucoma Larsen's neuroma left 2005 GERD (gastroesophageal reflux disease) High cholesterol Macular degeneration Osteoarthritis Surgical History Surgical History History of laparoscopy History of total left knee replacement (~11/12/21) Hx of breast reduction, elective 1995 H/O breast augmentation 1988 H/O total knee replacement left 2010/ right 2008 S/P cubital tunnel release S/P total abdominal hysterectomy (~04/19/00) ovarian cysts - BSO Family History Family History Father Heart disease Mother Heart disease Parkinson disease Sibling Diabetes mellitus Heart disease Hypertension History of open heart surgery Social History Social History Smoking status: Never smoker Second hand tobacco smoke exposure: Yes Alcohol intake: never Substance use: never Substance use type: does not use Do You Feel Safe in your Home?: Yes Lack of Transportation: No Lack of Food: Never True Current Housing: I Have Housing Concerned About Future Housing: No Difficulty Paying Gas/Electric Bills: No Difficulty Paying for Meds: No Currently Unemployed: No Education: High School Diploma/GED Difficulty w/ Childcare or Family Care: No Living arrangements: with family Additional living arrangements comments: spouse Occupation/Education: other Additional occupation/education comments: house / disability Gender identity (if verbalized by the patient): Female Sexual Orientation (if Verbalized by the Patient): Straight or Heterosexual Spiritual care concerns: No Meds Home Medications and Allergies Home Medications ?Medication ?Instructions ?Recorded ?Confirmed ?Type bimatoprost 0.01 % eye drops 1 drp EACH EYE HS 12/31/20 12/14/24 History (Lumigan) diphenhydramine 25 2 tablet PO QHS 12/31/20 12/14/24 History mg-acetaminophen 500 mg tablet (Tylenol PM Extra Strength) folic acid 1 mg tablet 1 mg PO DAILY 12/31/20 12/14/24 History levothyroxine 100 mcg tablet 100 mcg PO DAILY 12/31/20 12/14/24 History (Synthroid) linaclotide 290 mcg capsule 290 mcg PO DAILY PRN Constipation 12/31/20 12/14/24 History (Linzess) prednisone 5 mg tablet 5 mg PO BID 12/31/20 12/14/24 History temazepam 15 mg capsule 30 mg (2 x 15 mg) PO QHS PRN sleep 03/07/21 12/14/24 Rx #60 caps hydrocodone 10 mg-acetaminophen 1 tablet PO Q8H PRN pain (scale 03/25/21 12/14/24 Rx 325 mg tablet score 7-10) #85 tabs alendronate 70 mg tablet (Fosamax) 70 mg PO WEEKLY 07/02/21 12/14/24 History atorvastatin 20 mg tablet 40 mg PO QHS 07/02/21 12/14/24 History calcium 300 mg-D3 20 mcg-magnesium 1 tablet PO DAILY 07/02/21 12/14/24 History 25 mg-coppr 0.5 [id number] tablet (Caltrate-D3 Plus Minerals) gabapentin 100 mg capsule 100 mg PO BID 07/02/21 12/14/24 History gabapentin 300 mg capsule 900 mg PO QHS 07/02/21 12/14/24 History methotrexate sodium 2.5 mg tablet 25 mg PO WEEKLY 07/02/21 12/14/24 History multivitamin 1 tablet PO DAILY 07/02/21 12/14/24 History magnesium 250 mg tablet 250 mg PO BID 01/27/22 12/14/24 History tramadol 100 mg tablet,extended 200 mg PO TID PRN pain 4-6 01/27/22 12/14/24 History release 24 hr esomeprazole magnesium 40 mg 40 mg PO DAILY 01/28/23 12/14/24 History capsule,delayed release (Nexium) cyclobenzaprine 10 mg tablet 10 mg PO HS 01/17/24 12/14/24 History dicyclomine 20 mg tablet 20 mg PO TID 01/17/24 12/14/24 History cyclobenzaprine 10 mg PO TID PRN Muscle Pain 02/03/24 12/14/24 History diclofenac sodium 75 mg 75 mg PO BID 02/03/24 12/14/24 History tablet,delayed release losartan 50 mg tablet 50 mg PO DAILY 02/03/24 12/14/24 History tocilizumab 200 mg/10 mL (20 IV Q28D 09/13/24 History mg/mL) intravenous solution (Actemra) ubrogepant 100 mg tablet (Ubrelvy) See Rx Instructions .Route 09/13/24 12/14/24 Rx .COMPLEX #10 tabs alprazolam 0.5 mg tablet 0.5 mg PO TID PRN anxiety 12/14/24 12/14/24 History Allergies Allergy/AdvReac Type Severity Reaction Status Date / Time No Known Allergies Allergy Verified 12/14/24 19:17 Vital Signs Vital Signs - 24 hr 12/14/24 10:53 12/14/24 12:41 12/14/24 13:30 Temperature Pulse Rate 92 88 81 Respiratory Rate 18 18 18 Blood Pressure 149/96 H 128/83 126/77 Pulse Oximetry 95 96 98 Oxygen Delivery Room Air 12/14/24 15:00 12/14/24 17:00 12/14/24 20:30 Temperature Pulse Rate 96 Respiratory Rate 18 Blood Pressure 148/99 H Pulse Oximetry 99 Oxygen Delivery Room Air Room Air 12/14/24 21:49 12/15/24 04:43 Temperature 97.5 F L 97.5 F L Pulse Rate 79 72 Respiratory Rate 14 14 Blood Pressure 118/72 149/84 H Pulse Oximetry 93 96 Oxygen Delivery Results Labs 12/15/24 06:03 12/15/24 06:03 Labs: Short CBC 12/14/24 12/15/24 Range/Units 12:15 06:03 WBC 13.9 H 10.8 H (4.5-10.0) K/mm3 Hgb 11.4 L 9.8 L (12.0-15.0) g/dL Hct 37.4 32.8 L (37.0-47.0) % Plt Count 343 301 (150-375) k/mm3 BMP 12/14/24 12/15/24 12:15 06:03 Sodium 140 138 Potassium 4.1 4.2 Chloride 103 108 H Carbon Dioxide 29 27 BUN 14 D 10 Creatinine 0.70 0.67 L Glucose 92 79 Calcium 10.1 8.9 Liver Function 12/14/24 Range/Units 12:15 Total Bilirubin 0.4 (0.2-1.3) mg/dL AST 36 (14-36) U/L ALT 29 (6-35) U/L Alkaline Phosphatase 45 (38-126) U/L Albumin 4.6 (3.5-5.1) g/dL Urine 12/14/24 Range/Units 12:15 Urine Color Yellow (Yellow) Urine Appearance Clear (Clear) Urine pH 7.0 (5.0-9.0) Ur Specific [place] 1.012 (1.001-1.035) Urine Protein Negative (Negative) mg/dL Urine Glucose (UA) Negative (Negative) mg/dL
--- NOTE | 2024-12-15 09:10 | WPDGICN ---
GI Consult Note Consult date/time: 12/15/24 09:10 HPI: Gasper Frausto is a 69 year old female [facility] Past Medical History Medical History (Updated 12/15/24 @ 08:45 by Valerie Haney APRN) Chronic headache Chronic neck pain Peripheral neuropathy Colon cancer screening Common bile duct dilatation Abnormal CT scan Rheumatoid arthritis Right upper quadrant pain Acute rheumatic arthritis Glaucoma Larsen's neuroma left 2005 GERD (gastroesophageal reflux disease) High cholesterol Macular degeneration Osteoarthritis Surgical History Surgical History History of laparoscopy History of total left knee replacement (~11/12/21) Hx of breast reduction, elective 1995 H/O breast augmentation 1988 H/O total knee replacement left 2010/ right 2008 S/P cubital tunnel release S/P total abdominal hysterectomy (~04/19/00) ovarian cysts - BSO Family History Family History Father Heart disease Mother Heart disease Parkinson disease Sibling Diabetes mellitus Heart disease Hypertension History of open heart surgery Social History Social History Smoking status: Never smoker Second hand tobacco smoke exposure: Yes Alcohol intake: never Substance use: never Substance use type: does not use Do You Feel Safe in your Home?: Yes Lack of Transportation: No Lack of Food: Never True Current Housing: I Have Housing Concerned About Future Housing: No Difficulty Paying Gas/Electric Bills: No Difficulty Paying for Meds: No Currently Unemployed: No Education: High School Diploma/GED Difficulty w/ Childcare or Family Care: No Living arrangements: with family Additional living arrangements comments: spouse Occupation/Education: other Additional occupation/education comments: house / disability Gender identity (if verbalized by the patient): Female Sexual Orientation (if Verbalized by the Patient): Straight or Heterosexual Spiritual care concerns: No Meds Home Medications and Allergies Home Medications ?Medication ?Instructions ?Recorded ?Confirmed ?Type bimatoprost 0.01 % eye drops 1 drp EACH EYE HS 12/31/20 12/14/24 History (Lumigan) diphenhydramine 25 2 tablet PO QHS 12/31/20 12/14/24 History mg-acetaminophen 500 mg tablet (Tylenol PM Extra Strength) folic acid 1 mg tablet 1 mg PO DAILY 12/31/20 12/14/24 History levothyroxine 100 mcg tablet 100 mcg PO DAILY 12/31/20 12/14/24 History (Synthroid) linaclotide 290 mcg capsule 290 mcg PO DAILY PRN Constipation 12/31/20 12/14/24 History (Linzess) prednisone 5 mg tablet 5 mg PO BID 12/31/20 12/14/24 History temazepam 15 mg capsule 30 mg (2 x 15 mg) PO QHS PRN sleep 03/07/21 12/14/24 Rx #60 caps hydrocodone 10 mg-acetaminophen 1 tablet PO Q8H PRN pain (scale 03/25/21 12/14/24 Rx 325 mg tablet score 7-10) #85 tabs alendronate 70 mg tablet (Fosamax) 70 mg PO WEEKLY 07/02/21 12/14/24 History atorvastatin 20 mg tablet 40 mg PO QHS 07/02/21 12/14/24 History calcium 300 mg-D3 20 mcg-magnesium 1 tablet PO DAILY 07/02/21 12/14/24 History 25 mg-coppr 0.5 [id number] tablet (Caltrate-D3 Plus Minerals) gabapentin 100 mg capsule 100 mg PO BID 07/02/21 12/14/24 History gabapentin 300 mg capsule 900 mg PO QHS 07/02/21 12/14/24 History methotrexate sodium 2.5 mg tablet 25 mg PO WEEKLY 07/02/21 12/14/24 History multivitamin 1 tablet PO DAILY 07/02/21 12/14/24 History magnesium 250 mg tablet 250 mg PO BID 01/27/22 12/14/24 History tramadol 100 mg tablet,extended 200 mg PO TID PRN pain 4-6 01/27/22 12/14/24 History release 24 hr esomeprazole magnesium 40 mg 40 mg PO DAILY 01/28/23 12/14/24 History capsule,delayed release (Nexium) cyclobenzaprine 10 mg tablet 10 mg PO HS 01/17/24 12/14/24 History dicyclomine 20 mg tablet 20 mg PO TID 01/17/24 12/14/24 History cyclobenzaprine 10 mg PO TID PRN Muscle Pain 02/03/24 12/14/24 History diclofenac sodium 75 mg 75 mg PO BID 02/03/24 12/14/24 History tablet,delayed release losartan 50 mg tablet 50 mg PO DAILY 02/03/24 12/14/24 History tocilizumab 200 mg/10 mL (20 IV Q28D 09/13/24 History mg/mL) intravenous solution (Actemra) ubrogepant 100 mg tablet (Ubrelvy) See Rx Instructions .Route 09/13/24 12/14/24 Rx .COMPLEX #10 tabs alprazolam 0.5 mg tablet 0.5 mg PO TID PRN anxiety 12/14/24 12/14/24 History Allergies Allergy/AdvReac Type Severity Reaction Status Date / Time No Known Allergies Allergy Verified 12/14/24 19:17 Vital Signs Vital Signs - 24 hr 12/14/24 10:53 12/14/24 12:41 12/14/24 13:30 Temperature Pulse Rate 92 88 81 Respiratory Rate 18 18 18 Blood Pressure 149/96 H 128/83 126/77 Pulse Oximetry 95 96 98 Oxygen Delivery Room Air 12/14/24 15:00 12/14/24 17:00 12/14/24 20:30 Temperature Pulse Rate 96 Respiratory Rate 18 Blood Pressure 148/99 H Pulse Oximetry 99 Oxygen Delivery Room Air Room Air 12/14/24 21:49 12/15/24 04:43 Temperature 97.5 F L 97.5 F L Pulse Rate 79 72 Respiratory Rate 14 14 Blood Pressure 118/72 149/84 H Pulse Oximetry 93 96 Oxygen Delivery Results Labs 12/15/24 06:03 12/15/24 06:03 Labs: Short CBC 12/14/24 12/15/24 Range/Units 12:15 06:03 WBC 13.9 H 10.8 H (4.5-10.0) K/mm3 Hgb 11.4 L 9.8 L (12.0-15.0) g/dL Hct 37.4 32.8 L (37.0-47.0) % Plt Count 343 301 (150-375) k/mm3 BMP 12/14/24 12/15/24 12:15 06:03 Sodium 140 138 Potassium 4.1 4.2 Chloride 103 108 H Carbon Dioxide 29 27 BUN 14 D 10 Creatinine 0.70 0.67 L Glucose 92 79 Calcium 10.1 8.9 Liver Function 12/14/24 Range/Units 12:15 Total Bilirubin 0.4 (0.2-1.3) mg/dL AST 36 (14-36) U/L ALT 29 (6-35) U/L Alkaline Phosphatase 45 (38-126) U/L Albumin 4.6 (3.5-5.1) g/dL Urine 12/14/24 Range/Units 12:15 Urine Color Yellow (Yellow) Urine Appearance Clear (Clear) Urine pH 7.0 (5.0-9.0) Ur Specific [place] 1.012 (1.001-1.035) Urine Protein Negative (Negative) mg/dL Urine Glucose (UA) Negative (Negative) mg/dL
[2024-12-15] MEDS: ACETAMINOPHEN 650 MG SUPPOSITORY RECTAL (09:31)
[2024-12-15] MEDS: PANTOPRAZOLE SODIUM IV 40 MG VIAL IV PUSH ×2 (09:32→21:42)
--- NOTE | 2024-12-15 10:37 | P.PNIM_ITS ---
Progress Note: A&P Assessment and Plan (1) Nausea & vomiting: Qualifiers: Vomiting type: bilious vomiting Qualified Code(s): R11.14 - Bilious vomiting Code(s): R11.2 - Nausea with vomiting, unspecified Status: Acute Assessment and Plan: Zofran PRN NG tube to suction IV fluids IV PPI AM labs (2) SBO (small bowel obstruction): Code(s): K56.609 - Unspecified intestinal obstruction, unspecified as to partial versus complete obstruction Status: Acute Assessment and Plan: There is prominent edematous wall thickening at the gastric antrum and pylorus with prominent mucosal enhancement. Surgery and GI consulted NG tube to suction NPO IVF IV Protonix Plan for EGD today by GI (3) Hypothyroidism: Code(s): E03.9 - Hypothyroidism, unspecified Status: Acute Assessment and Plan: IV Synthroid while NPO (4) Rheumatoid arthritis: Code(s): M06.9 - Rheumatoid arthritis, unspecified Status: Acute Assessment and Plan: Currently holding home meds due to small-bowel obstruction Denies pain currently (5) Peripheral neuropathy: Code(s): G62.9 - Polyneuropathy, unspecified Status: Acute Assessment and Plan: Currently holding home meds due to small-bowel obstruction (6) UTI (urinary tract infection): Qualifiers: Hematuria presence: without hematuria Urinary tract infection type: acute cystitis Qualified Code(s): N30.00 - Acute cystitis without hematuria Code(s): N39.0 - Urinary tract infection, site not specified Status: Inactive Assessment and Plan: IV Rocephin Culture and sensitivity pending AM labs Subjective Date/time seen: 12/15/24 10:37 Interval history: 69-year-old female past medical history of rheumatoid arthritis, hyperlipidemia, GERD, IBS, patient presents the hospital with back pain and nausea. Patient presented with complaints of nausea and vomiting. Patient was admitted for small bowel obstruction. General surgery and GI were consulted. Patient seen and examined. Patient sitting up in bed, NG tube present to wall suction, in no apparent distress. Patient denies nausea or vomiting since NG tube was placed. Patient denies abdominal pain currently. Patient endorses a headache. General surgery saw patient and recommended bowel rest, IV fluids and GI consult. GI saw patient this morning and recommended an EGD today. Review of Systems Review of Systems: 12 systems were reviewed and are negativ e except for as per HPI. Exam Narrative: General: well appearing, appears stated age. NG tube in place. HEENT: normocephalic, atraumatic. Mucous membranes moist. EOMI, PERRLA, bilateral sclera anicteric, no conjunctival injection. Neck supple without JVD, lymphadenopathy, or bruit. Respiratory: clear to ascultation bilaterally. No rales/rhonic/wheezes. Cardiovascular: Regular rate and rhythm, normal S1-S2 upon ascultation. No murmurs, rubs, or clicks. PMI is nondisplaced, capillary refill less than 3 second. Abdomen: Soft, round, no pulsatile masses, nondistended and nontender. No rebound, no guarding. No CVA tenderness, no hepatosplenomegaly. Bowel sounds present to all four quadrants. No high pitch or tinkling sounds, resonant to percussion. Extremities: No cyanosis, clubbing, or edema present. Pulses are palpable 2/2. Active ROM to all four extremities. Neuro: Alert and orientated x 4. PERRLA. Cranial nerves 2-12 intact without focal deficit. Skin: Warm, dry, and intact, without rash, erythema, or lesion. Psych: pleasant, cooperative, normal speech, normal affect, no hallucinations, no dysarthia Objective Data Vital Signs Vital Signs: Vital Signs - 24 hr 12/14/24 10:53 12/14/24 12:41 12/14/24 13:30 Temperature Pulse Rate 92 88 81 Respiratory Rate 18 18 18 Blood Pressure 149/96 H 128/83 126/77 Pulse Oximetry 95 96 98 Oxygen Delivery Room Air 12/14/24 15:00 12/14/24 17:00 12/14/24 20:30 Temperature Pulse Rate 96 Respiratory Rate 18 Blood Pressure 148/99 H Pulse Oximetry 99 Oxygen Delivery Room Air Room Air 12/14/24 21:49 12/15/24 04:43 Temperature 97.5 F L 97.5 F L Pulse Rate 79 72 Respiratory Rate 14 14 Blood Pressure 118/72 149/84 H Pulse Oximetry 93 96 Oxygen Delivery Intake/Output Intake/Output: Intake & Output 12/12/24 12/13/24 12/14/24 12/15/24 23:59 23:59 23:59 23:59 Intake Total 1999 Output Total 300 201 Balance -300 1799 Meds/Results Medications: Active Medications Generic Name Dose Route Start Last Admin Trade Name Freq PRN Reason Stop Dose Admin Acetaminophen 650 mg 12/15/24 09:05 12/15/24 09:31 Acetaminophen 650 Mg Suppository RECTAL 650 mg Q6H PRN Administration Mild Pain (1-3) or Fever Acetaminophen/Codeine Phosphate 2 tab 12/15/24 10:01 Acetaminophen/Codeine (*Crx) 300/30 Mg Tablet PO Q6H PRN Pain Rated 4-6 Lactated Ringer's 1,000 mls @ 125 mls/hr 12/14/24 15:25 12/15/24 09:37 Lr - Lactated Ringers Iv IV CONT 125 mls/hr .Q8H LINDSAY Administration Ceftriaxone Sodium 1 gm/ 50 mls @ 100 mls/hr 12/14/24 23:00 12/15/24 00:43 Sodium Chloride IVPB 100 mls/hr Q24H LINDSAY Administration Latanoprost 1 drop 12/15/24 21:00 Latanoprost 0.005% Op Soln 2.5 Ml Btl EACH EYE HS LINDSAY Levothyroxine Sodium 50 mcg 12/15/24 06:30 12/15/24 06:12 Levothyroxine Sodium Inj 100 Mcg/5 Ml Vial IV PUSH 50 mcg DAILY@0630 LINDSAY Administration Linaclotide 290 mcg 12/15/24 10:09 Linaclotide 145 Mcg Capsule PO DAILY PRN Constipation Ondansetron HCl 4 mg 12/14/24 15:21 Ondansetron Inj 4 Mg/2 Ml Vial IV PUSH Q4H PRN Nausea Pantoprazole Sodium 40 mg 12/15/24 09:00 12/15/24 09:32 Pantoprazole Sodium Iv 40 Mg Vial IV PUSH 40 mg QAM LINDSAY Administration Radiology Results: ITS Impressions Abdomen/Pelvis CT 12/14/24 13:19 IMPRESSION: 1. There is short segment focal thickening of the carmen of the proximal small bowel. Differential includes mass or focal enteritis 2. Fluid-filled dilated duodenum and proximal jejunum. Differential includes partial/developing small bowel obstruction possibly secondary to a mass or e nteritis. Consider an upper GI examination for further assessment. 3. There is narrowing of the antrum. Consider an upper GI examination for further assessment. ADDENDUM: 12/14/24 0891 ADDENDUM: There is prominent edematous wall thickening at the gastric antrum and pylorus with prominent mucosal enhancement. There appears be a small defect in the enhancing mucosa posteriorly in this region best appreciated on series 3, image 74 & 75 and on sagittal series 602, images 50 & 51 which is suspicious for peptic ulcer disease. Dr. Randle discussed these findings with Dr. Anderson at 4:20 PM. Abdomen X-Ray 12/14/24 16:31 IMPRESSION: 1. Nonspecific abdomen with a moderate amount of stool. If continued concern, consider a short-term follow-up study. Labs Labs: Laboratory Results - last 24 hr 12/14/24 12/15/24 12:15 06:03 WBC 13.9 H 10.8 H RBC 3.63 L 3.12 L Hgb 11.4 L 9.8 L Hct 37.4 32.8 L MCV 103.0 H 105.1 H MCH 31.4 31.4 MCHC 30.5 L 29.9 L RDW 18.4 H 18.5 H Plt Count 343 301 MPV 9.8 9.3 Immature Gran % (Auto) 0.5 Neut % (Auto) 67.3 Lymph % (Auto) 19.5 [place] % (Auto) 11.7 H Eos % (Auto) 0.4 Baso % (Auto) 0.6 Lymph # (Auto) 2.70 [place] # (Auto) 1.6 H Eos # (Auto) 0.1 Baso # (Auto) 0.1 Abs Immat Gran (auto) 0.07 H Absolute Neuts (auto) 9.3 H Absolute Nucleated RBC 0.000 Nucleated RBC % 0.0 Sodium 140 138 Potassium 4.1 4.2 Chloride 103 108 H Carbon Dioxide 29 27 Anion Gap 8 3 L BUN 14 D 10 Creatinine 0.70 0.67 L Estim Creat Clear Calc 54 56 Estimated GFR > 60 > 60 Glucose 92 79 Calcium 10.1 8.9 Total Bilirubin 0.4 AST 36 ALT 29 Alkaline Phosphatase 45 Total Protein 6.6 Albumin 4.6 Urine Color Yellow Urine Appearance Clear Urine pH 7.0 Ur Specific [place] 1.012 Urine Protein Negative Urine Glucose (UA) Negative Urine Ketones Negative Ur Blood (Man) Negative Urine Nitrate Negative Urine Bilirubin Negative Urine Urobilinogen 0.2 Add Ur Microanalysis Reviewed Leukocyte Esterase Rfl 1+ H Urine RBC 0-2 Urine WBC 0-5 Ur Squamous Epith Cells None seen Urine Bacteria None seen Urine Casts 0-2 Quality VTE Prophylaxis VTE prophylaxis: mechanical ordered
[2024-12-15] MEDS: LACTATED RINGERS 1,000 ML 150 ML IV CONT (11:04)
--- NOTE | 2024-12-15 11:10 | WPDANESEPPF ---
Anes - Initial Pre Proc Eval Procedure: Operation Date: 12/15/24 15:15 Proposed Procedures p Esophagogastroduodenoscopy - Sacha Lind MD Date/Time: 12/15/24 11:10 Surgeon: Ryan Knowles MD Pre Op Diagnosis: Nausea/Vomiting/Small Bowel Obstruction/Abd Pain Patient Data Age: 69 Gender: F Height: 1.6 m Weight: 56 kg Last Vital Signs Temp 36.2 C L 12/15/24 11:01 Pulse 89 12/15/24 11:01 Resp 15 12/15/24 11:01 BP 141/80 H 12/15/24 11:01 Pulse Ox 96 12/15/24 11:01 O2 Del Method Room Air 12/15/24 11:01 Allergies Allergy/AdvReac Type Severity Reaction Status Date / Time No Known Allergies Allergy Verified 12/15/24 11:00 Home Medications ?Medication ?Instructions ?Recorded ?Confirmed ?Type bimatoprost 0.01 % eye drops 1 drp EACH EYE HS 12/31/20 12/14/24 History (Lumigan) diphenhydramine 25 2 tablet PO QHS 12/31/20 12/14/24 History mg-acetaminophen 500 mg tablet (Tylenol PM Extra Strength) folic acid 1 mg tablet 1 mg PO DAILY 12/31/20 12/14/24 History levothyroxine 100 mcg tablet 100 mcg PO DAILY 12/31/20 12/14/24 History (Synthroid) linaclotide 290 mcg capsule 290 mcg PO DAILY PRN Constipation 12/31/20 12/14/24 History (Linzess) prednisone 5 mg tablet 5 mg PO BID 12/31/20 12/14/24 History temazepam 15 mg capsule 30 mg (2 x 15 mg) PO QHS PRN sleep 03/07/21 12/14/24 Rx #60 caps hydrocodone 10 mg-acetaminophen 1 tablet PO Q8H PRN pain (scale 03/25/21 12/14/24 Rx 325 mg tablet score 7-10) #85 tabs alendronate 70 mg tablet (Fosamax) 70 mg PO WEEKLY 07/02/21 12/14/24 History atorvastatin 20 mg tablet 40 mg PO QHS 07/02/21 12/14/24 History calcium 300 mg-D3 20 mcg-magnesium 1 tablet PO DAILY 07/02/21 12/14/24 History 25 mg-coppr 0.5 [id number] tablet (Caltrate-D3 Plus Minerals) gabapentin 100 mg capsule 100 mg PO BID 07/02/21 12/14/24 History gabapentin 300 mg capsule 900 mg PO QHS 07/02/21 12/14/24 History methotrexate sodium 2.5 mg tablet 25 mg PO WEEKLY 07/02/21 12/14/24 History multivitamin 1 tablet PO DAILY 07/02/21 12/14/24 History magnesium 250 mg tablet 250 mg PO BID 01/27/22 12/14/24 History tramadol 100 mg tablet,extended 200 mg PO TID PRN pain 4-6 01/27/22 12/14/24 History release 24 hr esomeprazole magnesium 40 mg 40 mg PO DAILY 01/28/23 12/14/24 History capsule,delayed release (Nexium) cyclobenzaprine 10 mg tablet 10 mg PO HS 01/17/24 12/14/24 History dicyclomine 20 mg tablet 20 mg PO TID 01/17/24 12/14/24 History cyclobenzaprine 10 mg PO TID PRN Muscle Pain 02/03/24 12/14/24 History diclofenac sodium 75 mg 75 mg PO BID 02/03/24 12/14/24 History tablet,delayed release losartan 50 mg tablet 50 mg PO DAILY 02/03/24 12/14/24 History tocilizumab 200 mg/10 mL (20 IV Q28D 09/13/24 History mg/mL) intravenous solution (Actemra) ubrogepant 100 mg tablet (Ubrelvy) See Rx Instructions .Route 09/13/24 12/14/24 Rx .COMPLEX #10 tabs alprazolam 0.5 mg tablet 0.5 mg PO TID PRN anxiety 12/14/24 12/14/24 History Laboratory Tests 12/14/24 12/15/24 12:15 06:03 WBC 13.9 H K/mm3 10.8 H K/mm3 (4.5-10.0) (4.5-10.0) RBC 3.63 L M/mm3 3.12 L M/mm3 (4.2-5.4) (4.2-5.4) Hgb 11.4 L g/dL 9.8 L g/dL (12.0-15.0) (12.0-15.0) Hct 37.4 % 32.8 L % (37.0-47.0) (37.0-47.0) MCV 103.0 H fl 105.1 H fl (80-100) (80-100) MCH 31.4 pg 31.4 pg (26-34) (26-34) MCHC 30.5 L g/dl 29.9 L g/dl (32-36) (32-36) RDW 18.4 H % 18.5 H % (11.5-14.5) (11.5-14.5) Plt Count 343 k/mm3 301 k/mm3 (150-375) (150-375) MPV 9.8 fl 9.3 fl (7.4-10.4) (7.4-10.4) Immature Gran % (Auto) 0.5 % (0-0.5) Neut % (Auto) 67.3 % (45.5-73.1) Lymph % (Auto) 19.5 % (18.3-44.2) [place] % (Auto) 11.7 H % (2.6-8.5) Eos % (Auto) 0.4 % (0-4.4) Baso % (Auto) 0.6 % (0.2-1.2) Lymph # (Auto) 2.70 K/mm3 (0.9-3.2) [place] # (Auto) 1.6 H K/mm3 (0.1-0.6) Eos # (Auto) 0.1 K/mm3 (0-0.3) Baso # (Auto) 0.1 K/mm3 (0.0-0.1) Abs Immat Gran (auto) 0.07 H K/mm3 (0.00-0.031) Absolute Neuts (auto) 9.3 H K/mm3 (1.3-6.7) Absolute Nucleated RBC 0.000 K/mm3 (0.0-0.012) Nucleated RBC % 0.0 % (0.0-0.2) Sodium 140 mmol/L 138 mmol/L (137-145) (137-145) Potassium 4.1 mmol/L 4.2 mmol/L (3.4-5.0) (3.4-5.0) Chloride 103 mmol/L 108 H mmol/L (98-107) (98-107) Carbon Dioxide 29 mmol/L 27 mmol/L (22-30) (22-30) Anion Gap 8 mmol/L 3 L mmol/L (4-12) (4-12) BUN 14 D mg/dL 10 mg/dL (7-17) (7-17) Creatinine 0.70 mg/dL 0.67 L mg/dL (0.7-1.0) (0.7-1.0) Estim Creat Clear Calc 54 ml/min 56 ml/min Estimated GFR > 60 > 60 (59 - ) (59 - ) Glucose 92 mg/dL 79 mg/dL (65-110) (65-110) Calcium 10.1 mg/dL 8.9 mg/dL (8.4-10.2) (8.4-10.2) Total Bilirubin 0.4 mg/dL (0.2-1.3) AST 36 U/L (14-36) ALT 29 U/L (6-35) Alkaline Phosphatase 45 U/L (38-126) Total Protein 6.6 g/dL (6.3-8.2) Albumin 4.6 g/dL (3.5-5.1) Urine Color Yellow (Yellow) Urine Appearance Clear (Clear) Urine pH 7.0 (5.0-9.0) Ur Specific [place] 1.012 (1.001-1.035) Urine Protein Negative mg/dL (Negative) Urine Glucose (UA) Negative mg/dL (Negative) Urine Ketones Negative mg/dL (Negative) Ur Blood (Man) Negative (Negative) Urine Nitrate Negative (Negative) Urine Bilirubin Negative (Negative) Urine Urobilinogen 0.2 mg/dL (<2.0) Add Ur Microanalysis Reviewed Leukocyte Esterase Rfl 1+ H SYLVIA/UL (Negative) Urine RBC 0-2 /hpf (0-2) Urine WBC 0-5 /hpf (0-3) Ur Squamous Epith Cells None seen /hpf (Few) Urine Bacteria None seen /hpf Urine Casts 0-2 Patient hx anesthesia problems: none Family hx anesthesia problems: none Results Review: All pre-operative results and documents have been reviewed as part of the pre-operative evaluation. [facility] Past Medical History Medical History Chronic headache Chronic neck pain Peripheral neuropathy Colon cancer screening Common bile duct dilatation Abnormal CT scan Rheumatoid arthritis Right upper quadrant pain Acute rheumatic arthritis Glaucoma Larsen's neuroma left 2005 GERD (gastroesophageal reflux disease) High cholesterol Macular degeneration Osteoarthritis Surgical History Surgical History History of laparoscopy History of total left knee replacement (~11/12/21) Hx of breast reduction, elective 1995 H/O breast augmentation 1988 H/O total knee replacement left 2010/ right 2008 S/P cubital tunnel release S/P total abdominal hysterectomy (~04/19/00) ovarian cysts - BSO Family History Family History Father Heart disease Mother Heart disease Parkinson disease Sibling Diabetes mellitus Heart disease Hypertension History of open heart surgery Social History Social History Smoking status: Never smoker Second hand tobacco smoke exposure: Yes Alcohol intake: never Substance use: never Substance use type: does not use Do You Feel Safe in your Home?: Yes Lack of Transportation: No Lack of Food: Never True Current Housing: I Have Housing Concerned About Future Housing: No Difficulty Paying Gas/Electric Bills: No Difficulty Paying for Meds: No Currently Unemployed: No Education: High School Diploma/GED Difficulty w/ Childcare or Family Care: No Living arrangements: with family Additional living arrangements comments: spouse Occupation/Education: other Additional occupation/education comments: house / disability Gender identity (if verbalized by the patient): Female Sexual Orientation (if Verbalized by the Patient): Straight or Heterosexual Spiritual care concerns: No Anes - Eval Final PreProcedure Day of Procedure 12/15/24 11:10 Patient weight: normal Heart: regular rate and rhythm Lungs: clear to auscultation Airway: Mallampati scale class II Neurological: alert and oriented Last oral intake: >/= 8 hours ASA classification: III Emergent: no Anesthetic plan: proceed Anesthesia type and monitoring: general Results Review: All pre-operative results and documents have been reviewed as part of the pre-operative evaluation. Informed Consent: The patient's anesthetic plan and its attendant risks and benefits were discussed with the patient/family/POA. Questions were solicited and answers provided to the satisfaction of the patient/family/POA.
--- NOTE | 2024-12-15 11:29 | P.PNGS_ITS ---
Progress Note: A&P Assessment and Plan (1) SBO (small bowel obstruction): Code(s): K56.609 - Unspecified intestinal obstruction, unspecified as to partial versus complete obstruction Status: Acute Assessment and Plan: after I saw the patient on rounds, she went on to have an EGD which showed a duodenal ulcer. Nasogastric tube has been removed. She is still NPO. Not sure if this is ileus or SBO. I had ordered a small-bowel follow-through but this has not been done due to her EGD. Continue to follow. (2) Chronic headache: Code(s): R51.9 - Headache, unspecified; G89.29 - Other chronic pain Status: Acute Assessment and Plan: I will try to get her her home meds for relief of headache. Subjective Subjective Date/Time Seen: 12/15/24 11:29 Patient reports: still having pain ( Complaint is migraine headache, wants home meds), voiding w/o difficulty and afebrile Review of Systems Review of Systems: All systems reviewed & are unremarkable except as noted in HPI and below ( HPI) Exam Const: General: healthy appearing, alert, awake, tired appearing and uncomfortable ( complain of headache) Nutritional Appearance: thin Orientation/consciousness: patient oriented x3 GI: Inspection: non-distended and scaphoid GI Palp: Yes Soft to palpation, No Tenderness to palpation present (GI) and No Guarding due to palpation present (GI) Auscultation: Hypoactive bowel sounds present Objective Data Vital Signs Vital Signs: Vital Signs - 24 hr 12/14/24 12:41 12/14/24 13:30 12/14/24 15:00 Temperature Pulse Rate 88 81 96 Respiratory Rate 18 18 18 Blood Pressure 128/83 126/77 148/99 H Pulse Oximetry 96 98 99 Oxygen Delivery 12/14/24 17:00 12/14/24 20:30 12/14/24 21:49 Temperature 36.4 C L Pulse Rate 79 Respiratory Rate 14 Blood Pressure 118/72 Pulse Oximetry 93 Oxygen Delivery Room Air Room Air 12/15/24 04:43 12/15/24 11:01 12/15/24 11:22 Temperature 36.4 C L 36.2 C L Pulse Rate 72 89 99 Respiratory Rate 14 15 16 Blood Pressure 149/84 H 141/80 H 158/91 H Pulse Oximetry 96 96 100 Oxygen Delivery Room Air Room Air Intake/Output Intake/Output: Intake & Output 12/12/24 12/13/24 12/14/24 12/15/24 23:59 23:59 23:59 23:59 Intake Total 2079.2 Output Total 300 201 Balance -300 1878.2 Meds/Results Medications: Active Medications Generic Name Dose Route Start Last Admin Trade Name Freq PRN Reason Stop Dose Admin Acetaminophen 650 mg 12/15/24 09:05 12/15/24 09:31 Acetaminophen 650 Mg Suppository RECTAL 650 mg Q6H PRN Administration Mild Pain (1-3) or Fever Acetaminophen/Codeine Phosphate 2 tab 12/15/24 10:01 Acetaminophen/Codeine (*Crx) 300/30 Mg Tablet PO Q6H PRN Pain Rated 4-6 Lactated Ringer's 1,000 mls @ 125 mls/hr 12/14/24 15:25 12/15/24 10:15 Lr - Lactated Ringers Iv IV CONT 0 mls/hr .Q8H LINDSAY Infusion Ceftriaxone Sodium 1 gm/ 50 mls @ 100 mls/hr 12/14/24 23:00 12/15/24 00:43 Sodium Chloride IVPB 100 mls/hr Q24H LINDSAY Administration Lactated Ringer's 1,000 mls @ 150 mls/hr 12/15/24 10:55 12/15/24 11:23 Lr - Lactated Ringers Iv IV CONT 150 mls/hr .Q6H40M LINDSAY Infusion Latanoprost 1 drop 12/15/24 21:00 Latanoprost 0.005% Op Soln 2.5 Ml Btl EACH EYE HS LINDSAY Levothyroxine Sodium 50 mcg 12/15/24 06:30 12/15/24 06:12 Levothyroxine Sodium Inj 100 Mcg/5 Ml Vial IV PUSH 50 mcg DAILY@0630 LINDSAY Administration Linaclotide 290 mcg 12/15/24 10:09 Linaclotide 145 Mcg Capsule PO DAILY PRN Constipation Ondansetron HCl 4 mg 12/14/24 15:21 Ondansetron Inj 4 Mg/2 Ml Vial IV PUSH Q4H PRN Nausea Pantoprazole Sodium 40 mg 12/15/24 09:00 12/15/24 09:32 Pantoprazole Sodium Iv 40 Mg Vial IV PUSH 40 mg QAM LINDSAY Administration Radiology Results: ITS Impressions Abdomen/Pelvis CT 12/14/24 13:19 IMPRESSION: 1. There is short segment focal thickening of the carmen of the proximal small bowel. Differential includes mass or focal enteritis 2. Fluid-filled dilated duodenum and proximal jejunum. Differential includes partial/developing small bowel obstruction possibly secondary to a mass or enteritis. Consider an upper GI examination for further assessment. 3. There is narrowing of the antrum. Consider an upper GI examination for further assessment. ADDENDUM: 12/14/24 1622 ADDENDUM: There is prominent edematous wall thickening at the gastric antrum and pylorus with prominent mucosal enhancement. There appears be a small defect in the enhancing mucosa posteriorly in this region best appreciated on series 3, image 74 & 75 and on sagittal series 602, images 50 & 51 which is suspicious for peptic ulcer disease. Dr. Randle discussed these findings with Dr. Anderson at 4:20 PM. Abdomen X-Ray 12/14/24 16:31 IMPRESSION: 1. Nonspecific abdomen with a moderate amount of stool. If continued concern, consider a short-term follow-up study. Labs Labs: Laboratory Results - last 24 hr 12/14/24 12/15/24 12:15 06:03 WBC 13.9 H 10.8 H RBC 3.63 L 3.12 L Hgb 11.4 L 9.8 L Hct 37.4 32.8 L MCV 103.0 H 105.1 H MCH 31.4 31.4 MCHC 30.5 L 29.9 L RDW 18.4 H 18.5 H Plt Count 343 301 MPV 9.8 9.3 Immature Gran % (Auto) 0.5 Neut % (Auto) 67.3 Lymph % (Auto) 19.5 [place] % (Auto) 11.7 H Eos % (Auto) 0.4 Baso % (Auto) 0.6 Lymph # (Auto) 2.70 [place] # (Auto) 1.6 H Eos # (Auto) 0.1 Baso # (Auto) 0.1 Abs Immat Gran (auto) 0.07 H Absolute Neuts (auto) 9.3 H Absolute Nucleated RBC 0.000 Nucleated RBC % 0.0 Sodium 140 138 Potassium 4.1 4.2 Chloride 103 108 H Carbon Dioxide 29 27 Anion Gap 8 3 L BUN 14 D 10 Creatinine 0.70 0.67 L Estim Creat Clear Calc 54 56 Estimated GFR > 60 > 60 Glucose 92 79 Calcium 10.1 8.9 Total Bilirubin 0.4 AST 36 ALT 29 Alkaline Phosphatase 45 Total Protein 6.6 Albumin 4.6 Urine Color Yellow Urine Appearance Clear Urine pH 7.0 Ur Specific [place] 1.012 Urine Protein Negative Urine Glucose (UA) Negative Urine Ketones Negative Ur Blood (Man) Negative Urine Nitrate Negative Urine Bilirubin Negative Urine Urobilinogen 0.2 Add Ur Microanalysis Reviewed Leukocyte Esterase Rfl 1+ H Urine RBC 0-2 Urine WBC 0-5 Ur Squamous Epith Cells None seen Urine Bacteria None seen Urine Casts 0-2
--- NOTE | 2024-12-15 11:30 | S_PTH ---
PATIENT: Gasper Frausto LOC: [id number] U#:[id number] AGE/SX: 69/F ROOM: 329 RE12/14/[address]: Pauline Beckwith APRN : 1955 BED: 01 DIS: 12/17/2024 SPEC #: [id number] RECD: 12/15/24 12:11 STATUS: MEDINA REKayleen #: [id number] LIANA: 12/15/24 11:[address]: Sacha Lind DEPT: [facility] Surgical RECD BY: Shannon Daniel ENTERED: 12/15/24 12:15 SP TYPE: Surgical OTHR DR: MD Brian Horta, MD Michael Anderson MD Tissues: A - Biopsy Procedures: Hematoxylin and Eosin Stain Gross and Microscopic Level 4
--- NOTE | 2024-12-15 12:15 | SUR.PHASEII ---
Patient was taken to radiology per request to complete imaging.
[2024-12-15 12:24] LABS: HPYLORIRESULT Negative (Negative)
[2024-12-15] MEDS: ACETAMINOPHEN/CODEINE (*CRX) 300/30 MG TABLET 2 TAB PO ×2 (13:30→19:46)
[2024-12-15] MEDS: LATANOPROST 0.005% OP SOLN 2.5 ML BTL 1 DROP EACH EYE (21:40)
[2024-12-16] MEDS: ACETAMINOPHEN/CODEINE (*CRX) 300/30 MG TABLET 2 TAB PO (03:01)
[2024-12-16 04:44] VITALS: BP 145/73; PULSE 85; RESP 16; O2SAT 96
[2024-12-16 05:54] LABS: Hematocrit 32.1 % (37.0-47.0); Hemoglobin 9.8 g/dL (12.0-15.0); Immature Granulocyte Percent A 0.4 % (0-0.5); Lymphocytes Absolute Auto 2.62 K/mm3 (0.9-3.2); Mean Corpuscular HGB Conc 30.5 g/dl (32-36); Mean Corpuscular Hemoglobin 31.6 pg (26-34); Mean Corpuscular Volume 103.5 fl (80-100); Nucleated Red Blood Cells Absolute Auto 0.000 K/mm3 (0.0-0.012); Nucleated Red Blood Cells Perc 0.0 % (0.0-0.2); Platelet Count Result 286 k/mm3 (150-375); Red Blood Count 3.10 M/mm3 (4.2-5.4); White Blood Count 7.2 K/mm3 (4.5-10.0)
[2024-12-16] MEDS: LEVOTHYROXINE SODIUM INJ 100 MCG/5 ML VIAL 50 MCG IV PUSH (05:59)
[2024-12-16 06:16] LABS: Anion Gap 4 mmol/L (4-12); Blood Urea Nitrogen 8 mg/dL (7-17); Calcium 8.8 mg/dL (8.4-10.2); Carbon Dioxide 29 mmol/L (22-30); Chloride 107 mmol/L (98-107); Estimated CRCL calculation 56 ml/min; Estimated Glomerular Filt Rate > 60; Glucose 82 mg/dL (65-110); Potassium 3.8 mmol/L (3.4-5.0); Sodium 140 mmol/L (137-145)
[2024-12-16] MEDS: PANTOPRAZOLE SODIUM IV 40 MG VIAL IV PUSH ×2 (08:37→21:40)
[2024-12-16] MEDS: DICYCLOMINE HCL 10 MG CAPSULE 20 MG PO ×3 (08:37→16:58)
[2024-12-16] MEDS: GABAPENTIN 100 MG CAPSULE PO ×2 (08:37→16:58)
[2024-12-16] MEDS: MULTIVITAMINS THERAPEUTIC TAB (*BKC) 1 TABLET PO (08:37)
[2024-12-16] MEDS: LOSARTAN POTASSIUM 50 MG TABLET PO (08:37)
[2024-12-16] MEDS: HYDROcodone/acetaminophen (*CRX) 10-325 MG TABLET 1 TAB PO ×2 (09:54→21:54)
[2024-12-16] MEDS: THERAPEUTIC MULTIVITAMINS/MINERALS TAB (*BKC) 1 TABLET PO (09:54)
[2024-12-16] MEDS: MAGNESIUM OXIDE 200 MG TABLET PO ×2 (09:55→21:39)
--- NOTE | 2024-12-16 10:41 | P.PNGI_ITS ---
Progress Note: A&P Assessment and Plan (1) Duodenal ulcer: Code(s): K26.9 - Duodenal ulcer, unspecified as acute or chronic, without hemorrhage or perforation Status: Acute Assessment and Plan: this is probably cause of presentation large post pyloric ulcer continue with ppi twice daily tolerating liquid diet egd in 3 months to assess healing (2) Nausea & vomiting: Qualifiers: Vomiting type: bilious vomiting Qualified Code(s): R11.14 - Bilious vomiting Code(s): R11.2 - Nausea with vomiting, unspecified Status: Acute (3) Abdominal pain: Qualifiers: Abdominal location: lower abdomen, unspecified Qualified Code(s): R10.30 - Lower abdominal pain, unspecified Code(s): R10.9 - Unspecified abdominal pain Status: Acute Assessment and Plan: improved (4) SBO (small bowel obstruction): Code(s): K56.609 - Unspecified intestinal obstruction, unspecified as to partial versus complete obstruction Status: Acute Assessment and Plan: resolved Subjective Date/time seen: 12/16/24 10:41 Interval history: egd yesterday with large post-pyloric ulcer ngt removed and tolerating liquid diet SBFT normal she had several BM's Review of Systems Review of Systems: All systems reviewed & are unremarkable except as noted in HPI and below Exam Const: General: comfortable and no acute distress HENMT: Face/Nose/Sinus: Normal nares present Eyes: General: appearance normal, both eyes and all related structures Neck: Neck: no JVD Resp: Auscultation: clear to auscultation bilaterally Cardio: Rate: regular rate Rhythm: regular rhythm GI: Inspection: non-distended GI Palp: Yes Soft to palpation Skin: General skin exam: normal color Neuro: Speech: normal speech Extrem: General: normal to inspection Psych: Mental Status: mental status grossly normal Objective Data Vital Signs Vital Signs: Vital Signs - 24 hr 12/15/24 11:01 12/15/24 11:22 12/15/24 11:32 Temperature 97.2 F L Pulse Rate 89 99 92 Respiratory Rate 15 16 20 Blood Pressure 141/80 H 158/91 H 138/86 Pulse Oximetry 96 100 100 Oxygen Delivery Room Air Room Air Room Air 12/15/24 11:42 12/15/24 14:00 12/15/24 20:00 Temperature 97.5 F L Pulse Rate 97 83 88 Respiratory Rate 21 H 18 16 Blood Pressure 163/79 H 135/81 Pulse Oximetry 100 96 96 Oxygen Delivery Room Air Room Air 12/15/24 20:11 12/16/24 04:44 12/16/24 08:00 Temperature 98.1 F Pulse Rate 88 85 Respiratory Rate 16 16 Blood Pressure 128/75 145/73 H Pulse Oximetry 96 96 Oxygen Delivery Room Air Intake/Output Intake/Output: Intake & Output 12/13/24 12/14/24 12/15/24 12/16/24 23:59 23:59 23:59 23:59 Intake Total 2469.2 490 Output Total 300 251 Balance -300 2218.2 490 Meds/Results Medications: Active Medications Generic Name Dose Route Start Last Admin Trade Name Freq PRN Reason Stop Dose Admin Acetaminophen 650 mg 12/15/24 09:05 12/15/24 09:31 Acetaminophen 650 Mg Suppository RECTAL 650 mg Q6H PRN Administration Mild Pain (1-3) or Fever Hydrocodone Bitart/Acetaminophen 1 tab 12/16/24 07:38 12/16/24 09:54 Hydrocodone/Acetaminophen (*Crx) 10-325 Mg Tablet PO 1 tab Q8H PRN Administration pain (scale score 7-10) Alprazolam 0.5 mg 12/16/24 07:33 Alprazolam (*Crx) 0.5 Mg Tablet PO TID PRN Anxiety Atorvastatin Calcium 40 mg 12/16/24 21:00 Atorvastatin 40 Mg Tablet PO QHS [facility] Cyclobenzaprine HCl 10 mg 12/16/24 08:11 Cyclobenzaprine Hcl 10 Mg Tablet PO Q8H PRN Muscle Pain Dicyclomine HCl 20 mg 12/16/24 09:00 12/16/24 08:37 Dicyclomine Hcl 10 Mg Capsule PO 20 mg TID [facility] Administration Gabapentin 900 mg 12/16/24 21:00 Gabapentin 300 Mg Capsule PO QHS [facility] Gabapentin 100 mg 12/16/24 09:00 12/16/24 08:37 Gabapentin 100 Mg Capsule PO 100 mg BID [facility] Administration Ceftriaxone Sodium 1 gm/ 50 mls @ 100 mls/hr 12/14/24 23:00 12/15/24 21:43 Sodium Chloride IVPB 100 mls/hr Q24H [facility] Administration Latanoprost 1 drop 12/15/24 21:00 12/15/24 21:40 Latanoprost 0.005% Op Soln 2.5 Ml Btl EACH EYE 1 drop HS [facility] Administration Levothyroxine Sodium 100 mcg 12/17/24 06:30 Levothyroxine Sodium 100 Mcg Tablet PO DAILY@0630 [facility] Linaclotide 290 mcg 12/15/24 10:09 Linaclotide 145 Mcg Capsule PO DAILY PRN Constipation Losartan Potassium 50 mg 12/16/24 09:00 12/16/24 08:37 Losartan Potassium 50 Mg Tablet PO 50 mg DAILY [facility] Administration Magnesium Oxide 200 mg 12/16/24 09:00 12/16/24 09:55 Magnesium Oxide 200 Mg Tablet PO 200 mg Q12HR [facility] Administration Methotrexate 25 mg 12/19/24 09:00 Methotrexate 2.5 Mg Tab (*Chemo) PO Tu@0900 [facility] Multivitamins Therapeutic 1 tablet 12/16/24 09:00 12/16/24 08:37 Multivitamins Therapeutic Tab (*Bkc) PO 1 tablet DAILY [facility] Administration Multivitamins/Calcium 1 tablet 12/16/24 09:00 12/16/24 09:54 Therapeutic Multivitamins/Minerals Tab (*Bkc) PO 1 tablet DAILY [facility] Administration Ondansetron HCl 4 mg 12/14/24 15:21 Ondansetron Inj 4 Mg/2 Ml Vial IV PUSH Q4H PRN Nausea Pantoprazole Sodium 40 mg 12/15/24 21:00 12/16/24 08:37 Pantoprazole Sodium Iv 40 Mg Vial IV PUSH 40 mg Q12HR [facility] Administration Prednisone 5 mg 12/16/24 09:00 12/16/24 08:37 Prednisone 5 Mg Tablet PO 5 mg BID [facility] Administration Temazepam 30 mg 12/16/24 07:33 Temazepam (*Crx) 15 Mg Capsule PO QHS PRN Sleep Radiology Results: ITS Impressions Abdomen/Pelvis CT 12/14/24 13:19 IMPRESSION: 1. There is short segment focal thickening of the carmen of the proximal small bowel. Differential includes mass or focal enteritis 2. Fluid-filled dilated duodenum and proximal jejunum. Differential includes partial/developing small bowel obstruction possibly secondary to a mass or enteritis. Consider an upper GI examination for further assessment. 3. There is narrowing of the antrum. Consider an upper GI examination for further assessment. ADDENDUM: 12/14/24 1622 ADDENDUM: There is prominent edematous wall thickening at the gastric antrum and pylorus with prominent mucosal enhancement. There appears be a small defect in the enhancing mucosa posteriorly in this region best appreciated on series 3, image 74 & 75 and on sagittal series 602, images 50 & 51 which is suspicious for peptic ulcer disease. Dr. Randle discussed these findings with Dr. Anderson at 4:20 PM. Abdomen X-Ray 12/14/24 16:31 IMPRESSION: 1. Nonspecific abdomen with a moderate amount of stool. If continued concern, consider a short-term follow-up study. Small Bowel X-Ray 12/15/24 13:30 IMPRESSION: 1. Normal small bowel follow-through with 15 minute transit time to the cecum with normal mucosal fold pattern. Labs Labs: Laboratory Results - last 24 hr 12/15/24 12/16/24 12/16/24 12:22 05:36 05:37 WBC 7.2 RBC 3.10 L Hgb 9.8 L Hct 32.1 L MCV 103.5 H MCH 31.6 MCHC 30.5 L RDW 18.5 H Plt Count 286 MPV 9.2 Immature Gran % (Auto) 0.4 Neut % (Auto) 49.3 Lymph % (Auto) 36.4 [place] % (Auto) 10.2 H Eos % (Auto) 2.4 Baso % (Auto) 1.3 H Lymph # (Auto) 2.62 [place] # (Auto) 0.7 H Eos # (Auto) 0.2 Baso # (Auto) 0.1 Abs Immat Gran (auto) 0.03 Absolute Neuts (auto) 3.6 Absolute Nucleated RBC 0.000 Nucleated RBC % 0.0 Sodium 140 Potassium 3.8 Chloride 107 Carbon Dioxide 29 Anion Gap 4 BUN 8 Creatinine 0.67 L Estim Creat Clear Calc 56 Estimated GFR > 60 Glucose 82 Calcium 8.8 POC H. pylori Urease Negative
[2024-12-16 14:00] VITALS: BP 134/75; PULSE 92; RESP 18; TEMP 37; O2SAT 96
--- NOTE | 2024-12-16 14:08 | P.PNIM_ITS ---
Progress Note: A&P Assessment and Plan (1) Nausea & vomiting: Qualifiers: Vomiting type: bilious vomiting Qualified Code(s): R11.14 - Bilious vomiting Code(s): R11.2 - Nausea with vomiting, unspecified Status: Acute Assessment and Plan: Zofran PRN NG tube to suction IV fluids IV PPI AM labs (2) SBO (small bowel obstruction): Code(s): K56.609 - Unspecified intestinal obstruction, unspecified as to partial versus complete obstruction Status: Acute Assessment and Plan: There is prominent edematous wall thickening at the gastric antrum and pylorus with prominent mucosal enhancement. Surgery and GI consulted NG tube to suction NPO s/p small bowel follow through which showed no SBO resolved (3) Hypothyroidism: Code(s): E03.9 - Hypothyroidism, unspecified Status: Acute Assessment and Plan: IV Synthroid while NPO PO Synthroid restarted (4) Rheumatoid arthritis: Code(s): M06.9 - Rheumatoid arthritis, unspecified Status: Acute Assessment and Plan: home medications restarted except diclofenac, explained to patient (5) Peripheral neuropathy: Code(s): G62.9 - Polyneuropathy, unspecified Status: Acute Assessment and Plan: gabapentin restarted (6) UTI (urinary tract infection): Qualifiers: Hematuria presence: without hematuria Urinary tract infection type: acute cystitis Qualified Code(s): N30.00 - Acute cystitis without hematuria Code(s): N39.0 - Urinary tract infection, site not specified Status: Inactive Assessment and Plan: IV Rocephin Culture and sensitivity pending AM labs (7) Duodenal ulcer: Code(s): K26.9 - Duodenal ulcer, unspecified as acute or chronic, without hemorrhage or perforation Status: Acute Assessment and Plan: s/p EGD yesterday per GI large post pyloric ulcer IV PPI increased to BID continue PO PPI BID until outpatient follow up with GI patient will need repeat EGD in 3 months full liquid diet for lunch, advance per GI recs plan for discharge home tomorrow Subjective Date/time seen: 12/16/24 14:08 Interval history: 69-year-old female past medical history of rheumatoid arthritis, hyperlipidemia, GERD, IBS, patient presents the hospital with back pain and nausea. Patient presented with complaints of nausea and vomiting. Patient was admitted for small bowel obstruction. General surgery and GI were consulted. Patient seen and examined. Patient sitting in bed, in no acute distress. Patient underwent EGD yesterday by GI which showed large post pyloric ulcer. General surgery had patient complete a small bowel follow through which showed no small bowel obstruction. Patient's NG tube was removed and patient is tolerating clear liquids without nausea or vomiting. Patient denies abdominal pain. Patient will need to continue on PPI BID until outpatient follow up with GI. Patient will need a repeat EGD in 3 months. Patient's diclofenac stopped and patient instructed to make sure to take her chronic prednisone with food every time. Patient will advance to full liquid diet by GI for lunch. Plan for discharge home tomorrow if tolerating regular diet. Review of Systems Review of Systems: 12 systems were reviewed and are negativ e except for as per HPI. Exam Narrative: General: well appearing, appears stated age. HEENT: normocephalic, atraumatic. Mucous membranes moist. EOMI, PERRLA, bilateral sclera anicteric, no conjunctival injection. Neck supple without JVD, lymphadenopathy, or bruit. Respiratory: clear to ascultation bilaterally. No rales/rhonic/wheezes. Cardiovascular: Regular rate and rhythm, normal S1-S2 upon ascultation. No murmurs, rubs, or clicks. PMI is nondisplaced, capillary refill less than 3 second. Abdomen: Soft, round, no pulsatile masses, nondistended and nontender. No rebound, no guarding. No CVA tenderness, no hepatosplenomegaly. Bowel sounds present to all four quadrants. No high pitch or tinkling sounds, resonant to percussion. Extremities: No cyanosis, clubbing, or edema present. Pulses are palpable 2/2. Active ROM to all four extremities. Neuro: Alert and orientated x 4. PERRLA. Cranial nerves 2-12 intact without focal deficit. Skin: Warm, dry, and intact, without rash, erythema, or lesion. Psych: pleasant, cooperative, normal speech, normal affect, no hallucinations, no dysarthia Objective Data Vital Signs Vital Signs: Vital Signs - 24 hr 12/15/24 20:00 12/15/24 20:11 12/16/24 04:44 Temperature 98.1 F Pulse Rate 88 88 85 Respiratory Rate 16 16 16 Blood Pressure 128/75 145/73 H Pulse Oximetry 96 96 96 Oxygen Delivery Room Air 12/16/24 08:00 Temperature Pulse Rate Respiratory Rate Blood Pressure Pulse Oximetry Oxygen Delivery Room Air Intake/Output Intake/Output: Intake & Output 12/13/24 12/14/24 12/15/24 12/16/24 23:59 23:59 23:59 23:59 Intake Total 2469.2 730 Output Total 300 251 Balance -300 2218.2 730 Meds/Results Medications: Active Medications Generic Name Dose Route Start Last Admin Trade Name Freq PRN Reason Stop Dose Admin Acetaminophen 650 mg 12/15/24 09:05 12/15/24 09:31 Acetaminophen 650 Mg Suppository RECTAL 650 mg Q6H PRN Administration Mild Pain (1-3) or Fever Hydrocodone Bitart/Acetaminophen 1 tab 12/16/24 07:38 12/16/24 09:54 Hydrocodone/Acetaminophen (*Crx) 10-325 Mg Tablet PO 1 tab Q8H PRN Administration pain (scale score 7-10) Alprazolam 0.5 mg 12/16/24 07:33 Alprazolam (*Crx) 0.5 Mg Tablet PO TID PRN Anxiety Atorvastatin Calcium 40 mg 12/16/24 21:00 Atorvastatin 40 Mg Tablet PO QHS [facility] Cyclobenzaprine HCl 10 mg 12/16/24 08:11 Cyclobenzaprine Hcl 10 Mg Tablet PO Q8H PRN Muscle Pain Dicyclomine HCl 20 mg 12/16/24 09:00 12/16/24 13:30 Dicyclomine Hcl 10 Mg Capsule PO 20 mg TID [facility] Administration Gabapentin 900 mg 12/16/24 21:00 Gabapentin 300 Mg Capsule PO QHS [facility] Gabapentin 100 mg 12/16/24 09:00 12/16/24 08:37 Gabapentin 100 Mg Capsule PO 100 mg BID [facility] Administration Ceftriaxone Sodium 1 gm/ 50 mls @ 100 mls/hr 12/14/24 23:00 12/15/24 21:43 Sodium Chloride IVPB 100 mls/hr Q24H [facility] Administration Latanoprost 1 drop 12/15/24 21:00 12/15/24 21:40 Latanoprost 0.005% Op Soln 2.5 Ml Btl EACH EYE 1 drop HS [facility] Administration Levothyroxine Sodium 100 mcg 12/17/24 06:30 Levothyroxine Sodium 100 Mcg Tablet PO DAILY@0630 [facility] Linaclotide 290 mcg 12/15/24 10:09 Linaclotide 145 Mcg Capsule PO DAILY PRN Constipation Losartan Potassium 50 mg 12/16/24 09:00 12/16/24 08:37 Losartan Potassium 50 Mg Tablet PO 50 mg DAILY [facility] Administration Magnesium Oxide 200 mg 12/16/24 09:00 12/16/24 09:55 Magnesium Oxide 200 Mg Tablet PO 200 mg Q12HR [facility] Administration Methotrexate 25 mg 12/19/24 09:00 Methotrexate 2.5 Mg Tab (*Chemo) PO Tu@0900 [facility] Miscellaneous Information 1 each 12/16/24 00:01 Nonformulary Drug (Sulfasalazine 500 Mg Tablet,Delayed Release (Dr/Ec))Can Patient Use Fro XX 01/15/25 00:00 CLARIFY [facility] Multivitamins Therapeutic 1 tablet 12/16/24 09:00 12/16/24 08:37 Multivitamins Therapeutic Tab (*Bkc) PO 1 tablet DAILY [facility] Administration Multivitamins/Calcium 1 tablet 12/16/24 09:00 12/16/24 09:54 Therapeutic Multivitamins/Minerals Tab (*Bkc) PO 1 tablet DAILY [facility] Administration Non-Formulary Medication 1 gm 12/16/24 17:00 Sulfasalazine PO 01/15/25 16:59 BID [facility] Ondansetron HCl 4 mg 12/14/24 15:21 Ondansetron Inj 4 Mg/2 Ml Vial IV PUSH Q4H PRN Nausea Pantoprazole Sodium 40 mg 12/15/24 21:00 12/16/24 08:37 Pantoprazole Sodium Iv 40 Mg Vial IV PUSH 40 mg Q12HR [facility] Administration Prednisone 5 mg 12/16/24 09:00 12/16/24 08:37 Prednisone 5 Mg Tablet PO 5 mg BID [facility] Administration Temazepam 30 mg 12/16/24 07:33 Temazepam (*Crx) 15 Mg Capsule PO QHS PRN Sleep Radiology Results: ITS Impressions Abdomen/Pelvis CT 12/14/24 13:19 IMPRESSION: 1. There is short segment focal thickening of the carmen of the proximal small bowel. Differential includes mass or focal enteritis 2. Fluid-filled dilated duodenum and proximal jejunum. Differential includes partial/developing small bowel obstruction possibly secondary to a mass or enteritis. Consider an upper GI examination for further assessment. 3. There is narrowing of the antrum. Consider an upper GI examination for further assessment. ADDENDUM: 12/14/24 1622 ADDENDUM: There is prominent edematous wall thickening at the gastric antrum and pylorus with prominent mucosal enhancement. There appears be a small defect in the enhancing mucosa posteriorly in this region best appreciated on series 3, image 74 & 75 and on sagittal series 602, images 50 & 51 which is suspicious for peptic ulcer disease. Dr. Randle discussed these findings with Dr. Anderson at 4:20 PM. Abdomen X-Ray 12/14/24 16:31 IMPRESSION: 1. Nonspecific abdomen with a moderate amount of stool. If continued concern, consider a short-term follow-up study. Small Bowel X-Ray 12/15/24 13:30 IMPRESSION: 1. Normal small bowel follow-through with 15 minute transit time to the cecum with normal mucosal fold pattern. Labs Labs: Laboratory Results - last 24 hr 12/16/24 12/16/24 05:36 05:37 WBC 7.2 RBC 3.10 L Hgb 9.8 L Hct 32.1 L MCV 103.5 H MCH 31.6 MCHC 30.5 L RDW 18.5 H Plt Count 286 MPV 9.2 Immature Gran % (Auto) 0.4 Neut % (Auto) 49.3 Lymph % (Auto) 36.4 [place] % (Auto) 10.2 H Eos % (Auto) 2.4 Baso % (Auto) 1.3 H Lymph # (Auto) 2.62 [place] # (Auto) 0.7 H Eos # (Auto) 0.2 Baso # (Auto) 0.1 Abs Immat Gran (auto) 0.03 Absolute Neuts (auto) 3.6 Absolute Nucleated RBC 0.000 Nucleated RBC % 0.0 Sodium 140 Potassium 3.8 Chloride 107 Carbon Dioxide 29 Anion Gap 4 BUN 8 Creatinine 0.67 L Estim Creat Clear Calc 56 Estimated GFR > 60 Glucose 82 Calcium 8.8 Quality VTE Prophylaxis VTE prophylaxis: mechanical ordered
[2024-12-16 21:21] VITALS: BP 140/88; PULSE 84; RESP 18; TEMP 36.7; O2SAT 96
[2024-12-16] MEDS: GABAPENTIN 300 MG CAPSULE 900 MG PO (21:39)
[2024-12-16] MEDS: ATORVASTATIN 40 MG TABLET PO (21:40)
[2024-12-16] MEDS: LATANOPROST 0.005% OP SOLN 2.5 ML BTL 1 DROP EACH EYE (21:45)
[2024-12-16] MEDS: TEMAZEPAM (*CRX) 15 MG CAPSULE 30 MG PO (21:54)
[2024-12-16] MEDS: CYCLOBENZAPRINE HCL 10 MG TABLET PO (21:54)
[2024-12-16] MEDS: cefTRIAXone 1 GM in SODIUM CHLORIDE 0.9% IV 50 ML 100 ML IVPB (21:56)
[2024-12-17 05:53] LABS: Hematocrit 32.3 % (37.0-47.0); Hemoglobin 10.0 g/dL (12.0-15.0); Immature Granulocyte Percent A 0.4 % (0-0.5); Lymphocytes Absolute Auto 2.36 K/mm3 (0.9-3.2); Mean Corpuscular HGB Conc 31.0 g/dl (32-36); Mean Corpuscular Hemoglobin 31.7 pg (26-34); Mean Corpuscular Volume 102.5 fl (80-100); Nucleated Red Blood Cells Absolute Auto 0.000 K/mm3 (0.0-0.012); Nucleated Red Blood Cells Perc 0.0 % (0.0-0.2); Platelet Count Result 308 k/mm3 (150-375); Red Blood Count 3.15 M/mm3 (4.2-5.4); White Blood Count 7.7 K/mm3 (4.5-10.0)
[2024-12-17 06:00] VITALS: BP 123/84; PULSE 92; RESP 20; TEMP 36.6; O2SAT 93
[2024-12-17 06:22] LABS: Iron 28 ug/dL (37-170)
[2024-12-17 06:27] LABS: Anion Gap 3 mmol/L (4-12); Blood Urea Nitrogen 6 mg/dL (7-17); Calcium 8.9 mg/dL (8.4-10.2); Carbon Dioxide 27 mmol/L (22-30); Chloride 109 mmol/L (98-107); Estimated CRCL calculation 61 ml/min; Estimated Glomerular Filt Rate > 60; Glucose 80 mg/dL (65-110); Potassium 3.7 mmol/L (3.4-5.0); Sodium 139 mmol/L (137-145)
[2024-12-17 06:31] LABS: Percent Iron Saturation 8 % (20-50)
[2024-12-17] MEDS: LEVOTHYROXINE SODIUM 100 MCG TABLET PO (06:45)
[2024-12-17 07:03] LABS: Ferritin 26.80 ng/mL (11.1-264)
[2024-12-17] MEDS: MAGNESIUM OXIDE 200 MG TABLET PO (09:00)
[2024-12-17] MEDS: GABAPENTIN 100 MG CAPSULE PO (09:00)
[2024-12-17] MEDS: THERAPEUTIC MULTIVITAMINS/MINERALS TAB (*BKC) 1 TABLET PO (09:00)
[2024-12-17] MEDS: MULTIVITAMINS THERAPEUTIC TAB (*BKC) 1 TABLET PO (09:00)
[2024-12-17] MEDS: LOSARTAN POTASSIUM 50 MG TABLET PO (09:00)
[2024-12-17] MEDS: DICYCLOMINE HCL 10 MG CAPSULE 20 MG PO (09:00)
[2024-12-17] MEDS: PANTOPRAZOLE SODIUM IV 40 MG VIAL IV PUSH (09:00)
[2024-12-17] MEDS: HYDROcodone/acetaminophen (*CRX) 10-325 MG TABLET 1 TAB PO (09:04)
[2024-12-17 09:12] VITALS: O2SAT 94
--- NOTE | 2024-12-17 10:23 | P.PNIM_ITS ---
Progress Note: A&P Assessment and Plan (1) Nausea & vomiting: Qualifiers: Vomiting type: bilious vomiting Qualified Code(s): R11.14 - Bilious vomiting Code(s): R11.2 - Nausea with vomiting, unspecified Status: Acute Assessment and Plan: Zofran PRN NG tube to suction IV fluids IV PPI AM labs (2) SBO (small bowel obstruction): Code(s): K56.609 - Unspecified intestinal obstruction, unspecified as to partial versus complete obstruction Status: Acute Assessment and Plan: There is prominent edematous wall thickening at the gastric antrum and pylorus with prominent mucosal enhancement. Surgery and GI consulted NG tube to suction NPO s/p small bowel follow through which showed no SBO resolved (3) Hypothyroidism: Code(s): E03.9 - Hypothyroidism, unspecified Status: Acute Assessment and Plan: IV Synthroid while NPO PO Synthroid restarted (4) Rheumatoid arthritis: Code(s): M06.9 - Rheumatoid arthritis, unspecified Status: Acute Assessment and Plan: home medications restarted except diclofenac, explained to patient (5) Peripheral neuropathy: Code(s): G62.9 - Polyneuropathy, unspecified Status: Acute Assessment and Plan: gabapentin restarted (6) UTI (urinary tract infection): Qualifiers: Hematuria presence: without hematuria Urinary tract infection type: acute cystitis Qualified Code(s): N30.00 - Acute cystitis without hematuria Code(s): N39.0 - Urinary tract infection, site not specified Status: Inactive Assessment and Plan: IV Rocephin Culture and sensitivity pending AM labs (7) Duodenal ulcer: Code(s): K26.9 - Duodenal ulcer, unspecified as acute or chronic, without hemorrhage or perforation Status: Acute Assessment and Plan: s/p EGD yesterday per GI large post pyloric ulcer IV PPI increased to BID continue PO PPI BID until outpatient follow up with GI patient will need repeat EGD in 3 months full liquid diet for lunch, advance per GI recs plan for discharge home tomorrow Subjective Date/time seen: 12/17/24 10:23 Interval history: 69-year-old female past medical history of rheumatoid arthritis, hyperlipidemia, GERD, IBS, patient presents the hospital with back pain and nausea. Patient presented with complaints of nausea and vomiting. Patient was admitted for small bowel obstruction. General surgery and GI were consulted. Assuming care. Patient seen and examined during morning rounds. Patient sitting in bed, in no acute distress. She had EGD 12/15 by GI which showed large post pyloric ulcer. General surgery had patient complete a small bowel follow through which showed no small bowel obstruction. Patient's NG tube was removed and patient is tolerating clear liquids without nausea or vomiting. Patient denies abdominal pain. Patient on PPI BID until outpatient follow up with GI. Patient will need a repeat EGD in 3 months. Patient's diclofenac stopped and patient instructed to make sure to take her chronic prednisone with food every time. Patient advanced to full liquid diet by GI. Plan for discharge home tomorrow if tolerating regular diet. Review of Systems Review of Systems: 12 systems were reviewed and are negativ e except for as per HPI. Exam Narrative: General: well appearing, appears stated age. HEENT: normocephalic, atraumatic. Mucous membranes moist. EOMI, PERRLA, bilateral sclera anicteric, no conjunctival injection. Neck supple without JVD, lymphadenopathy, or bruit. Respiratory: clear to ascultation bilaterally. No rales/rhonic/wheezes. Cardiovascular: Regular rate and rhythm, normal S1-S2 upon ascultation. No murmurs, rubs, or clicks. PMI is nondisplaced, capillary refill less than 3 second. Abdomen: Soft, round, no pulsatile masses, nondistended and nontender. No rebound, no guarding. No CVA tenderness, no hepatosplenomegaly. Bowel sounds present to all four quadrants. No high pitch or tinkling sounds, resonant to percussion. Extremities: No cyanosis, clubbing, or edema present. Pulses are palpable 2/2. Active ROM to all four extremities. Neuro: Alert and orientated x 4. PERRLA. Cranial nerves 2-12 intact without focal deficit. Skin: Warm, dry, and intact, without rash, erythema, or lesion. Psych: pleasant, cooperative, normal speech, normal affect, no hallucinations, no dysarthia Objective Data Vital Signs Vital Signs: Vital Signs - 24 hr 12/16/24 14:00 12/16/24 20:00 12/16/24 21:21 Temperature 98.6 F 98.0 F Pulse Rate 92 84 Respiratory Rate 18 18 Blood Pressure 134/75 140/88 Pulse Oximetry 96 96 Oxygen Delivery Room Air 12/17/24 06:00 Temperature 97.9 F Pulse Rate 92 Respiratory Rate 20 Blood Pressure 123/84 Pulse Oximetry 93 Oxygen Delivery Intake/Output Intake/Output: Intake & Output 12/14/24 12/15/24 12/16/24 12/17/24 23:59 23:59 23:59 23:59 Intake Total 2519.2 2120 240 Output Total 300 251 300 Balance -300 2268.2 2120 -60 Meds/Results Medications: Active Medications Generic Name Dose Route Start Last Admin Trade Name Freq PRN Reason Stop Dose Admin Acetaminophen 650 mg 12/15/24 09:05 12/15/24 09:31 Acetaminophen 650 Mg Suppository RECTAL 650 mg Q6H PRN Administration Mild Pain (1-3) or Fever Hydrocodone Bitart/Acetaminophen 1 tab 12/16/24 07:38 12/17/24 09:04 Hydrocodone/Acetaminophen (*Crx) 10-325 Mg Tablet PO 1 tab Q8H PRN Administration pain (scale score 7-10) Alprazolam 0.5 mg 12/16/24 07:33 Alprazolam (*Crx) 0.5 Mg Tablet PO TID PRN Anxiety Atorvastatin Calcium 40 mg 12/16/24 21:00 12/16/24 21:40 Atorvastatin 40 Mg Tablet PO 40 mg QHS LINDSAY Administration Cyclobenzaprine HCl 10 mg 12/16/24 08:11 12/16/24 21:54 Cyclobenzaprine Hcl 10 Mg Tablet PO 10 mg Q8H PRN Administration Muscle Pain Dicyclomine HCl 20 mg 12/16/24 09:00 12/17/24 09:00 Dicyclomine Hcl 10 Mg Capsule PO 20 mg TID LINDSAY Administration Gabapentin 900 mg 12/16/24 21:00 12/16/24 21:39 Gabapentin 300 Mg Capsule PO 900 mg QHS LINDSAY Administration Gabapentin 100 mg 12/16/24 09:00 12/17/24 09:00 Gabapentin 100 Mg Capsule PO 100 mg BID LINDSAY Administration Ceftriaxone Sodium 1 gm/ 50 mls @ 100 mls/hr 12/14/24 23:00 12/16/24 22:26 Sodium Chloride IVPB Infused Q24H LINDSAY Infusion Latanoprost 1 drop 12/15/24 21:00 12/16/24 21:45 Latanoprost 0.005% Op Soln 2.5 Ml Btl EACH EYE 1 drop HS LINDSAY Administration Levothyroxine Sodium 100 mcg 12/17/24 06:30 12/17/24 06:45 Levothyroxine Sodium 100 Mcg Tablet PO 100 mcg DAILY@0630 [facility] Administration Linaclotide 290 mcg 12/15/24 10:09 Linaclotide 145 Mcg Capsule PO DAILY PRN Constipation Losartan Potassium 50 mg 12/16/24 09:00 12/17/24 09:00 Losartan Potassium 50 Mg Tablet PO 50 mg DAILY [facility] Administration Magnesium Oxide 200 mg 12/16/24 09:00 12/17/24 09:00 Magnesium Oxide 200 Mg Tablet PO 200 mg Q12HR LINDSAY Administration Methotrexate 25 mg 12/19/24 09:00 Methotrexate 2.5 Mg Tab (*Chemo) PO Tu@0900 [facility] Miscellaneous Information 1 each 12/16/24 00:01 12/17/24 02:13 Nonformulary Drug (Sulfasalazine 500 Mg Tablet,Delayed Release (Dr/Ec))Can Patient Use Fro XX 01/15/25 00:00 Not Given CLARIFY [facility] Multivitamins Therapeutic 1 tablet 12/16/24 09:00 12/17/24 09:00 Multivitamins Therapeutic Tab (*Bkc) PO 1 tablet DAILY [facility] Administration Multivitamins/Calcium 1 tablet 12/16/24 09:00 12/17/24 09:00 Therapeutic Multivitamins/Minerals Tab (*Bkc) PO 1 tablet DAILY [facility] Administration Non-Formulary Medication 1 gm 12/16/24 17:00 Sulfasalazine PO 01/15/25 16:59 BID [facility] Ondansetron HCl 4 mg 12/14/24 15:21 Ondansetron Inj 4 Mg/2 Ml Vial IV PUSH Q4H PRN Nausea Pantoprazole Sodium 40 mg 12/15/24 21:00 12/17/24 09:00 Pantoprazole Sodium Iv 40 Mg Vial IV PUSH 40 mg Q12HR [facility] Administration Prednisone 5 mg 12/16/24 09:00 12/17/24 09:00 Prednisone 5 Mg Tablet PO 5 mg BID [facility] Administration Temazepam 30 mg 12/16/24 07:33 12/16/24 21:54 Temazepam (*Crx) 15 Mg Capsule PO 30 mg QHS PRN Administration Sleep Radiology Results: ITS Impressions Abdomen/Pelvis CT 12/14/24 13:19 IMPRESSION: 1. There is short segment focal thickening of the carmen of the proximal small bowel. Differential includes mass or focal enteritis 2. Fluid-filled dilated duodenum and proximal jejunum. Differential includes partial/developing small bowel obstruction possibly secondary to a mass or enteritis. Consider an upper GI examination for further assessment. 3. There is narrowing of the antrum. Consider an upper GI examination for further assessment. ADDENDUM: 12/14/24 1622 ADDENDUM: There is prominent edematous wall thickening at the gastric antrum and pylorus with prominent mucosal enhancement. There appears be a small defect in the enha ncing mucosa posteriorly in this region best appreciated on series 3, image 74 & 75 and on sagittal series 602, images 50 & 51 which is suspicious for peptic ulcer disease. Dr. Rnadle discussed these findings with Dr. Anderson at 4:20 PM. Abdomen X-Ray 12/14/24 16:31 IMPRESSION: 1. Nonspecific abdomen with a moderate amount of stool. If continued concern, consider a short-term follow-up study. Small Bowel X-Ray 12/15/24 13:30 IMPRESSION: 1. Normal small bowel follow-through with 15 minute transit time to the cecum with normal mucosal fold pattern. Labs Labs: Laboratory Results - last 24 hr 12/17/24 05:19 WBC 7.7 RBC 3.15 L Hgb 10.0 L Hct 32.3 L MCV 102.5 H MCH 31.7 MCHC 31.0 L RDW 18.5 H Plt Count 308 MPV 9.4 Immature Gran % (Auto) 0.4 Neut % (Auto) 55.4 Lymph % (Auto) 30.7 [place] % (Auto) 10.4 H Eos % (Auto) 1.8 Baso % (Auto) 1.3 H Lymph # (Auto) 2.36 [place] # (Auto) 0.8 H Eos # (Auto) 0.1 Baso # (Auto) 0.1 Abs Immat Gran (auto) 0.03 Absolute Neuts (auto) 4.3 Absolute Nucleated RBC 0.000 Nucleated RBC % 0.0 Sodium 139 Potassium 3.7 Chloride 109 H Carbon Dioxide 27 Anion Gap 3 L BUN 6 L Creatinine 0.61 L Estim Creat Clear Calc 61 Estimated GFR > 60 Glucose 80 Calcium 8.9 Iron 28 L TIBC 358 % Saturation 8 L Ferritin 26.80 Quality VTE Prophylaxis VTE prophylaxis: mechanical ordered
--- NOTE | 2024-12-17 10:25 | P.DS_ITS ---
DS: Admitting Diagnosis Discharge Date 12/17 Admitting Diagnosis back pain, nausea DS: Discharge Diagnosis Discharge Diagnosis (1) Nausea & vomiting: Qualifiers: Vomiting type: bilious vomiting Qualified Code(s): R11.14 - Bilious vomiting Code(s): R11.2 - Nausea with vomiting, unspecified Status: Acute (2) SBO (small bowel obstruction): Code(s): K56.609 - Unspecified intestinal obstruction, unspecified as to partial versus complete obstruction Status: Acute (3) Hypothyroidism: Code(s): E03.9 - Hypothyroidism, unspecified Status: Acute (4) Rheumatoid arthritis: Code(s): M06.9 - Rheumatoid arthritis, unspecified Status: Acute (5) Peripheral neuropathy: Code(s): G62.9 - Polyneuropathy, unspecified Status: Acute (6) UTI (urinary tract infection): Qualifiers: Hematuria presence: without hematuria Urinary tract infection type: acute cystitis Qualified Code(s): N30.00 - Acute cystitis without hematuria Code(s): N39.0 - Urinary tract infection, site not specified Status: Inactive (7) Duodenal ulcer: Code(s): K26.9 - Duodenal ulcer, unspecified as acute or chronic, without hemorrhage or perforation Status: Acute DS: Summary Hospital Course Hospital Course: 69-year-old female past medical history of rheumatoid arthritis, hyperlipidemia, GERD, IBS, patient presents the hospital with back pain and nausea. Patient presented with complaints of nausea and vomiting. Patient was admitted for small bowel obstruction. Surgery was consulted: Water-soluble contrast small-bowel follow-through shows no evidence of small-bowel obstruction. Transit time was very quick, 15 minutes. It looks like the duodenal ulcer is most likely the patient's diagnosis for her abdominal pain and vomiting. surgery signed off. Pt had egd 12/15 with large post-pyloric ulcer. NG tube was removed, diet was advanced. She was tolerating liquid diet and advanced diet. OK to be discharged per GI with rx for PPI and a close f/u. egd in 3 months to assess healing Time Spent with Patient Time attestation: Total time spent providing and/or coordinating discharge services: Exam Narrative: General: well appearing, appears stated age. HEENT: normocephalic, atraumatic. Mucous membranes moist. EOMI, PERRLA, bilateral sclera anicteric, no conjunctival injection. Neck supple without JVD, lymphadenopathy, or bruit. Respiratory: clear to ascultation bilaterally. No rales/rhonic/wheezes. Cardiovascular: Regular rate and rhythm, normal S1-S2 upon ascultation. No murmurs, rubs, or clicks. PMI is nondisplaced, capillary refill less than 3 second. Abdomen: Soft, round, no pulsatile masses, nondistended and nontender. No rebound, no guarding. No CVA tenderness, no hepatosplenomegaly. Bowel sounds present to all four quadrants. No high pitch or tinkling sounds, resonant to percussion. Extremities: No cyanosis, clubbing, or edema present. Pulses are palpable 2/2. Active ROM to all four extremities. Neuro: Alert and orientated x 4. PERRLA. Cranial nerves 2-12 intact without focal deficit. Skin: Warm, dry, and intact, without rash, erythema, or lesion. Psych: pleasant, cooperative, normal speech, normal affect, no hallucinations, no dysarthia DS: Data Data Completed and Pending Pending studies at discharge: Pending at discharge 12/15/24 11:30 Surgical [PTH] Routine Labs on day of discharge: Labs from last 24 hours 12/17/24 05:19 WBC 7.7 RBC 3.15 L Hgb 10.0 L Hct 32.3 L MCV 102.5 H MCH 31.7 MCHC 31.0 L RDW 18.5 H Plt Count 308 MPV 9.4 Immature Gran % (Auto) 0.4 Neut % (Auto) 55.4 Lymph % (Auto) 30.7 [place] % (Auto) 10.4 H Eos % (Auto) 1.8 Baso % (Auto) 1.3 H Lymph # (Auto) 2.36 [place] # (Auto) 0.8 H Eos # (Auto) 0.1 Baso # (Auto) 0.1 Abs Immat Gran (auto) 0.03 Absolute Neuts (auto) 4.3 Absolute Nucleated RBC 0.000 Nucleated RBC % 0.0 Sodium 139 Potassium 3.7 Chloride 109 H Carbon Dioxide 27 Anion Gap 3 L BUN 6 L Creatinine 0.61 L Estim Creat Clear Calc 61 Estimated GFR > 60 Glucose 80 Calcium 8.9 Iron 28 L TIBC 358 % Saturation 8 L Ferritin 26.80 Preliminary micro results at discharge 12/14/24 12:15 - Preliminary Urine Clean Catch Discharge Plan Discharge Attending physician on discharge: Fabio Walker Consulting providers: Sacha Lind Discharging Clinician: Pauline Beckwith Patient Disposition: Home Activity: may shower Diet: as tolerated and other - see discharge instructions Discharge Instructions: You were admitted for nausea. Had egd 12/[address] Moran: large post-pyloric ulcer. OK to be discharged per GI with for PPI ( DR Moran sent a script) and a close f/u. egd in 3 months to assess healing. Do not take nexium as DR Ansari sent you a script for protonix. I restarted your home meds, but please double check the dose for tramadol and cyclobenzaprine with prescribing provider. Patient Instructions: Antibiotic Form Patient Language: [place] Stand Alone Forms: General Discharge Information Follow-up/Referrals: Luna,Brian [place] MD [Primary Care Provider] - 2 Weeks Sacha Lind MD [Physician, Gastroenterology] - 2 Weeks Discharge Medications: New pantoprazole 40 mg tablet,delayed release (DR/EC) 40 mg PO BID Qty: 60 5RF Continued levothyroxine [Synthroid] 100 mcg tablet 100 mcg PO DAILY Linzess 290 mcg capsule 290 mcg PO DAILY PRN (Reason: Constipation) folic acid 1 mg tablet 1 mg PO DAILY diphenhydramine-acetaminophen [Tylenol PM Extra Strength] 25-500 mg tablet 2 tablet PO QHS Lumigan 0.01 % drops 1 drp EACH EYE HS prednisone 5 mg tablet 5 mg PO BID gabapentin 300 mg capsule 900 mg PO QHS gabapentin 100 mg capsule 100 mg PO BID methotrexate sodium 2.5 mg tablet 25 mg PO WEEKLY Patient Comments: Currently on HOLD Rx Instructions: administer on Tuesdays multivitamin Tablet 1 tablet PO DAILY alendronate [Fosamax] 70 mg tablet 70 mg PO WEEKLY Patient Comments: administer on Tuesdays Caltrate-D3 Plus Minerals 300 mg-800 unit -25 mg-0.5 mg tablet 1 tablet PO DAILY atorvastatin 20 mg tablet 40 mg PO QHS tramadol 100 mg tablet extended release 24 hr 200 mg PO TID PRN (Reason: pain 4-6) magnesium 250 mg tablet 250 mg PO BID Actemra 200 mg/10 mL (20 mg/mL) solution IV Q28D Patient Comments: PATIENT IS NOT AWARE OF DOSAGE FOR THIS MED. Ubrelvy 100 mg tablet See Rx Instructions .ROUTE .COMPLEX Qty: 10 0RF Dose Instruction: TAKE 1 TABLET BY MOUTH ONCE DAILY A SINGLE DOSE, MAY REPEAT ONCE IN 2 HOURS OR LONGER AFTER FIRST DOSE IF NEEDED Rx Instructions: TAKE 1 TABLET BY MOUTH ONCE DAILY A SINGLE DOSE, MAY REPEAT ONCE IN 2 HOURS OR LONGER AFTER FIRST DOSE IF NEEDED alprazolam 0.5 mg tablet 0.5 mg PO TID PRN (Reason: anxiety) Patient Comments: CLAUSTERPHOBIA AROUND HEAD sulfasalazine 500 mg tablet,delayed release (DR/EC) 1 g PO BID losartan 50 mg Tablet 50 mg PO DAILY diclofenac sodium 75 mg tablet,delayed release (DR/EC) 75 mg PO BID cyclobenzaprine 10 mg PO TID PRN (Reason: Muscle Pain) cyclobenzaprine 10 mg tablet 10 mg PO HS dicyclomine 20 mg tablet 20 mg PO TID temazepam 15 mg capsule 30 mg PO QHS PRN (Reason: sleep) Qty: 60 0RF hydrocodone-acetaminophen 10-325 mg tablet 1 tablet PO Q8H PRN (Reason: pain (scale score 7-10)) Qty: 85 0RF Discontinued esomeprazole magnesium [Nexium] 40 mg capsule,delayed release(DR/EC) 40 mg PO DAILY Date of admission: 12/14/24 16:06 Primary Care Provider: Jeremy,Brian [place] Admitting Provider: Lucas Knowles Attending physician on admission: Lucas Knowles Condition: Stable Quality VTE Prophylaxis VTE prophylaxis: mechanical ordered Hospitalist MIPS Heart Failure (Exclusion) Patient has history of Heart Transplant or Left Ventricular Assistive Device?: No IF YES, STOP HERE Heart Failure (Qualifier) Patient has current or prior documentation of LVEF less than or equal to 40%, or mod/servere depressed LVSF?: No IF NO, STOP HERE
--- NOTE | 2024-12-17 13:25 | P.PNGI_ITS ---
Progress Note: A&P Assessment and Plan (1) Duodenal ulcer: Code(s): K26.9 - Duodenal ulcer, unspecified as acute or chronic, without hemorrhage or perforation Status: Acute Assessment and Plan: this is probably cause of presentation large post pyloric ulcer home soon with ppi twice daily will advance diet egd in 3 months to assess healing (2) Nausea & vomiting: Qualifiers: Vomiting type: bilious vomiting Qualified Code(s): R11.14 - Bilious vomiting Code(s): R11.2 - Nausea with vomiting, unspecified Status: Acute Assessment and Plan: this has improved (3) Abdominal pain: Qualifiers: Abdominal location: lower abdomen, unspecified Qualified Code(s): R10.30 - Lower abdominal pain, unspecified Code(s): R10.9 - Unspecified abdominal pain Status: Acute Assessment and Plan: almost gone (4) SBO (small bowel obstruction): Code(s): K56.609 - Unspecified intestinal obstruction, unspecified as to partial versus complete obstruction Status: Acute Assessment and Plan: resolved Subjective Date/time seen: 12/17/24 13:25 Interval history: less nauseous and tolerating liquid diet she is more comfortable Review of Systems Review of Systems: All systems reviewed & are unremarkable except as noted in HPI and below Exam Const: General: comfortable and no acute distress HENMT: Face/Nose/Sinus: Normal nares present Eyes: General: appearance normal, both eyes and all related structures Neck: Neck: no JVD Resp: Auscultation: clear to auscultation bilaterally Cardio: Rate: regular rate Rhythm: regular rhythm GI: Inspection: non-distended GI Palp: Yes Soft to palpation Skin: General skin exam: normal color Neuro: Speech: normal speech Extrem: General: normal to inspection Psych: Mental Status: mental status grossly normal Objective Data Vital Signs Vital Signs: Vital Signs - 24 hr 12/16/24 14:00 12/16/24 20:00 12/16/24 21:21 Temperature 98.6 F 98.0 F Pulse Rate 92 84 Respiratory Rate 18 18 Blood Pressure 134/75 140/88 Pulse Oximetry 96 96 Oxygen Delivery Room Air 12/17/24 06:00 12/17/24 08:00 12/17/24 09:12 Temperature 97.9 F Pulse Rate 92 Respiratory Rate 20 Blood Pressure 123/84 Pulse Oximetry 93 94 Oxygen Delivery Room Air Room Air Intake/Output Intake/Output: Intake & Output 12/14/24 12/15/24 12/16/24 12/17/24 23:59 23:59 23:59 23:59 Intake Total 2519.2 2120 480 Output Total 300 251 300 Balance -300 2268.2 2120 180 Meds/Results Medications: Active Medications Generic Name Dose Route Start Last Admin Trade Name Freq PRN Reason Stop Dose Admin Acetaminophen 650 mg 12/15/24 09:05 12/15/24 09:31 Acetaminophen 650 Mg Suppository RECTAL 650 mg Q6H PRN Administration Mild Pain (1-3) or Fever Hydrocodone Bitart/Acetaminophen 1 tab 12/16/24 07:38 12/17/24 09:04 Hydrocodone/Acetaminophen (*Crx) 10-325 Mg Tablet PO 1 tab Q8H PRN Administration pain (scale score 7-10) Alprazolam 0.5 mg 12/16/24 07:33 Alprazolam (*Crx) 0.5 Mg Tablet PO TID PRN Anxiety Atorvastatin Calcium 40 mg 12/16/24 21:00 12/16/24 21:40 Atorvastatin 40 Mg Tablet PO 40 mg QHS LINDSAY Administration Cyclobenzaprine HCl 10 mg 12/16/24 08:11 12/16/24 21:54 Cyclobenzaprine Hcl 10 Mg Tablet PO 10 mg Q8H PRN Administration Muscle Pain Dicyclomine HCl 20 mg 12/16/24 09:00 12/17/24 09:00 Dicyclomine Hcl 10 Mg Capsule PO 20 mg TID LINDSAY Administration Gabapentin 900 mg 12/16/24 21:00 12/16/24 21:39 Gabapentin 300 Mg Capsule PO 900 mg QHS LINDSAY Administration Gabapentin 100 mg 12/16/24 09:00 12/17/24 09:00 Gabapentin 100 Mg Capsule PO 100 mg BID LINDSAY Administration Ceftriaxone Sodium 1 gm/ 50 mls @ 100 mls/hr 12/14/24 23:00 12/16/24 22:26 Sodium Chloride IVPB Infused Q24H LINDSAY Infusion Latanoprost 1 drop 12/15/24 21:00 12/16/24 21:45 Latanoprost 0.005% Op Soln 2.5 Ml Btl EACH EYE 1 drop HS LINDSAY Administration Levothyroxine Sodium 100 mcg 12/17/24 06:30 12/17/24 06:45 Levothyroxine Sodium 100 Mcg Tablet PO 100 mcg DAILY@0630 LINDSAY Administration Linaclotide 290 mcg 12/15/24 10:09 Linaclotide 145 Mcg Capsule PO DAILY PRN Constipation Losartan Potassium 50 mg 12/16/24 09:00 12/17/24 09:00 Losartan Potassium 50 Mg Tablet PO 50 mg DAILY LINDSAY Administration Magnesium Oxide 200 mg 12/16/24 09:00 12/17/24 09:00 Magnesium Oxide 200 Mg Tablet PO 200 mg Q12HR LINDSAY Administration Methotrexate 25 mg 12/19/24 09:00 Methotrexate 2.5 Mg Tab (*Chemo) PO Tu@0900 [facility] [place] Miscellaneous Information 1 each 12/16/24 00:01 12/17/24 02:13 Nonformulary Drug (Sulfasalazine 500 Mg Tablet,Delayed Release (Dr/Ec))Can Patient Use Fro XX 01/15/25 00:00 Not Given CLARIFY [facility] [place] Multivitamins Therapeutic 1 tablet 12/16/24 09:00 12/17/24 09:00 Multivitamins Therapeutic Tab (*Bkc) PO 1 tablet DAILY [facility] Administration Multivitamins/Calcium 1 tablet 12/16/24 09:00 12/17/24 09:00 Therapeutic Multivitamins/Minerals Tab (*Bkc) PO 1 tablet DAILY LINDSAY Administration Non-Formulary Medication 1 gm 12/16/24 17:00 Sulfasalazine PO 01/15/25 16:59 BID [facility] Ondansetron HCl 4 mg 12/14/24 15:21 Ondansetron Inj 4 Mg/2 Ml Vial IV PUSH Q4H PRN Nausea Pantoprazole Sodium 40 mg 12/15/24 21:00 12/17/24 09:00 Pantoprazole Sodium Iv 40 Mg Vial IV PUSH 40 mg Q12HR [facility] [place] Administration Prednisone 5 mg 12/16/24 09:00 12/17/24 09:00 Prednisone 5 Mg Tablet PO 5 mg BID [facility] Administration Temazepam 30 mg 12/16/24 07:33 12/16/24 21:54 Temazepam (*Crx) 15 Mg Capsule PO 30 mg QHS PRN Administration Sleep Radiology Results: ITS Impressions Abdomen/Pelvis CT 12/14/24 13:19 IMPRESSION: 1. There is short segment focal thickening of the carmen of the proximal small bowel. Differential includes mass or focal enteritis 2. Fluid-filled dilated duodenum and proximal jejunum. Differential includes partial/developing small bowel obstruction possibly secondary to a mass or enteritis. Consider an upper GI examination for further assessment. 3. There is narrowing of the antrum. Consider an upper GI examination for further assessment. ADDENDUM: 12/14/24 1622 ADDENDUM: There is prominent edematous wall thickening at the gastric antrum and pylorus with prominent mucosal enhancement. There appears be a small defect in the enhancing mucosa posteriorly in this region best appreciated on series 3, image 74 & 75 and on sagittal series 602, images 50 & 51 which is suspicious for peptic ulcer disease. Dr. Randle discussed these findings with Dr. Anderson at 4:20 PM. Abdomen X-Ray 12/14/24 16:31 IMPRESSION: 1. Nonspecific abdomen with a moderate amount of stool. If continued concern, consider a short-term follow-up study. Small Bowel X-Ray 12/15/24 13:30 IMPRESSION: 1. Normal small bowel follow-through with 15 minute transit time to the cecum with normal mucosal fold pattern. Labs Labs: Laboratory Results - last 24 hr 12/17/24 05:19 WBC 7.7 RBC 3.15 L Hgb 10.0 L Hct 32.3 L MCV 102.5 H MCH 31.7 MCHC 31.0 L RDW 18.5 H Plt Count 308 MPV 9.4 Immature Gran % (Auto) 0.4 Neut % (Auto) 55.4 Lymph % (Auto) 30.7 [place] % (Auto) 10.4 H Eos % (Auto) 1.8 Baso % (Auto) 1.3 H Lymph # (Auto) 2.36 [place] # (Auto) 0.8 H Eos # (Auto) 0.1 Baso # (Auto) 0.1 Abs Immat Gran (auto) 0.03 Absolute Neuts (auto) 4.3 Absolute Nucleated RBC 0.000 Nucleated RBC % 0.0 Sodium 139 Potassium 3.7 Chloride 109 H Carbon Dioxide 27 Anion Gap 3 L BUN 6 L Creatinine 0.61 L Estim Creat Clear Calc 61 Estimated GFR > 60 Glucose 80 Calcium 8.9 Iron 28 L TIBC 358 % Saturation 8 L Ferritin 26.80
[2024-12-17 14:21] VITALS: BP 135/81; PULSE 112; RESP 18; TEMP 36.2; O2SAT 98
--- NOTE | 2024-12-19 10:44 | PM.EVENT ---
Event Note Event Note Event Note: Urine culture resulted. Noted that pt did not have UTI like symptoms-will not treat with antibiotics for now.
== END 2024-12-17 15:05 | disposition home or self-care (01) | DRG 384 ==
LOC: ANHED 15:17 → ANH3MEDSUR 16:24
PROVIDERS: Internal Medicine Gastroenterology; Nurse Practitioner Adult Health; Nurse Practitioner Family; Admitting Provider Internal Medicine; Emergency Provider Emergency Medicine; PCP Internal Medicine; Visit Provider Nurse Practitioner
PROC: 0DJ08ZZ Inspection of Upper Intestinal Tract, Via Natural or Artificial Opening Endoscopic (ICD-10-PCS; principal; 2024-12-15 15:15)
DX: K26.9 Duodenal ulcer, unspecified as acute or chronic, without hemorrhage or perforation (principal); K56.609 Unspecified intestinal obstruction, unspecified as to partial versus complete obstruction; R11.14 Bilious vomiting; K44.9 Diaphragmatic hernia without obstruction or gangrene; G43.909 Migraine, unspecified, not intractable, without status migrainosus; G89.29 Other chronic pain; R10.30 Lower abdominal pain, unspecified; K58.1 Irritable bowel syndrome with constipation; K21.9 Gastro-esophageal reflux disease without esophagitis; D53.9 Nutritional anemia, unspecified; E03.9 Hypothyroidism, unspecified; M06.9 Rheumatoid arthritis, unspecified; G62.9 Polyneuropathy, unspecified; E78.00 Pure hypercholesterolemia, unspecified; Z79.52 Long term (current) use of systemic steroids; Z79.82 Long term (current) use of aspirin; Z79.891 Long term (current) use of opiate analgesic; Z79.899 Other long term (current) drug therapy; Z96.653 Presence of artificial knee joint, bilateral; Z90.710 Acquired absence of both cervix and uterus; Z90.79 Acquired absence of other genital organ(s); Z90.722 Acquired absence of ovaries, bilateral
CPT/HCPCS: 36415; 74018; 74177; 74250; 80048; 80053; 81001; 82728; 83540; 83550; 85025; 85027; 87081; 87086; 88305; 96374; 96375; 96376; 99285; A9270; G0378; J0650; J0696; J1171; J2270; J2405; J2470; J2704; J2765; J7120; J7512; Q9967

== ENCOUNTER 2025-03-02 09:49 | Emergency (ER) | payer MEDICARE, SELFPAY ==
--- NOTE | 2025-03-02 09:52 | ED.WOUNDLAC ---
HPI - Wound/Laceration General Chief Complaint: Wound/Laceration Stated Complaint: wound on right ankle Time Seen by Provider: 03/02/25 10:00 Source: patient Mode of arrival: ambulatory Limitations: no limitations History of Present Illness HPI narrative: Gasper is a 69 year old female patient presenting to the clinic today with c/o wound to the right lower leg x 3.5 weeks. States it is becoming more painful and not healing. Developed the wound after having some tape on her skin. Wound is draining some yellow discharge and will bleed. Area is becoming more painful to touch and she feels like there is some heat coming from the wound. Denies any fever, chills, or body aches. No swelling of her legs. Denies any history of venous stasis ulcers. History of RA and gets infusions of Actemra monthly. No history of diabetes. Related Data Home Medications ?Medication ?Instructions ?Recorded ?Confirmed ?Last Taken ?Type bimatoprost 0.01 % eye drops 1 drp EACH EYE HS 12/31/20 02/27/25 12/13/24 History (Lumigan) diphenhydramine 25 2 tablet PO QHS 12/31/20 02/27/25 12/13/24 History mg-acetaminophen 500 mg tablet (Tylenol PM Extra Strength) folic acid 1 mg tablet 1 mg PO DAILY 12/31/20 02/27/25 12/13/24 History levothyroxine 100 mcg tablet 100 mcg PO DAILY 12/31/20 02/27/25 12/14/24 History (Synthroid) linaclotide 290 mcg capsule 290 mcg PO DAILY PRN Constipation 12/31/20 02/27/25 12/12/24 History (Linzess) prednisone 5 mg tablet 5 mg PO BID 12/31/20 02/27/25 12/14/24 History alendronate 70 mg tablet (Fosamax) 70 mg PO WEEKLY 07/02/21 02/27/25 12/12/24 History atorvastatin 20 mg tablet 40 mg PO QHS 07/02/21 02/27/25 12/13/24 History calcium 300 mg-D3 20 mcg-magnesium 1 tablet PO DAILY 07/02/21 02/27/25 12/13/24 History 25 mg-coppr 0.5 od-bnop-sbza tablet (Caltrate-D3 Plus Minerals) gabapentin 100 mg capsule 100 mg PO BID 07/02/21 02/27/25 12/14/24 History gabapentin 300 mg capsule 900 mg PO QHS 07/02/21 02/27/25 12/13/24 History methotrexate sodium 2.5 mg tablet 25 mg PO WEEKLY 07/02/21 02/27/25 12/12/24 History multivitamin 1 tablet PO DAILY 07/02/21 02/27/25 12/13/24 History magnesium 250 mg tablet 250 mg PO BID 01/27/22 02/27/25 12/14/24 History tramadol 100 mg tablet,extended 200 mg PO TID PRN pain 4-6 01/27/22 02/27/25 12/14/24 History release 24 hr cyclobenzaprine 10 mg tablet 10 mg PO HS 01/17/24 02/27/25 12/13/24 History dicyclomine 20 mg tablet 20 mg PO TID 01/17/24 02/27/25 12/14/24 History cyclobenzaprine 10 mg PO TID PRN Muscle Pain 02/03/24 02/27/25 12/13/24 History diclofenac sodium 75 mg 75 mg PO BID 02/03/24 02/27/25 12/14/24 History tablet,delayed release losartan 50 mg tablet 50 mg PO DAILY 02/03/24 02/27/25 12/14/24 History tocilizumab 200 mg/10 mL (20 200 mg IV Q28D 09/13/24 02/27/25 11/20/24 History mg/mL) intravenous solution (Actemra) sulfasalazine 500 mg 1 g PO BID 12/16/24 02/27/25 Unknown History tablet,delayed release aspirin 325 mg capsule 325 mg PO DAILY 02/27/25 02/27/25 Unknown History folic acid 1 mg tablet 1 mg PO DAILY 02/27/25 02/27/25 Unknown History Allergies Allergy/AdvReac Type Severity Reaction Status Date / Time No Known Allergies Allergy Verified 03/02/25 09:51 Review of Systems Review of Systems: Pertinent positives per HPI. Patient denies any fever, chills, rash, headache, visual changes, dizziness, cough, shortness of breath, chest pain, palpitations, nausea, vomiting, diarrhea, constipation, abdominal pain, or any urinary issues. [facility] Past Medical History Medical History (Updated 03/02/25 @ 10:09 by Jr Zuluaga APRN) Duodenal ulcer Chronic headache Chronic neck pain Peripheral neuropathy Colon cancer screening Common bile duct dilatation Abnormal CT scan Rheumatoid arthritis Right upper quadrant pain Acute rheumatic arthritis Glaucoma Larsen's neuroma left 2005 GERD (gastroesophageal reflux disease) High cholesterol Macular degeneration Osteoarthritis Surgical History Surgical History History of laparoscopy History of total left knee replacement (~11/12/21) Hx of breast reduction, elective 1995 H/O breast augmentation 1988 H/O total knee replacement left 2010/ right 2008 S/P cubital tunnel release S/P total abdominal hysterectomy (~04/19/00) ovarian cysts - BSO Family History Family History Father Heart disease Mother Heart disease Parkinson disease Sibling Diabetes mellitus Heart disease Hypertension History of open heart surgery Social History Social History Smoking status: Never smoker Second hand tobacco smoke exposure: Yes Alcohol intake: never Substance use: never Substance use type: does not use Do You Feel Safe in your Home?: Yes Lack of Transportation: No Lack of Food: Never True Current Housing: I Have Housing Concerned About Future Housing: No Difficulty Paying Gas/Electric Bills: No Difficulty Paying for Meds: No Currently Unemployed: No Education: High School Diploma/GED Difficulty w/ Childcare or Family Care: No Living arrangements: with family Additional living arrangements comments: spouse Occupation/Education: other Additional occupation/education comments: house / disability Gender identity (if verbalized by the patient): Female Sexual Orientation (if Verbalized by the Patient): Straight or Heterosexual Spiritual care concerns: No Comments At the time of my signature, I reviewed and agree with the nursing past medical, surgical, social, and family history. There is no relevant family history pertinent to the patient complaint. Exam Narrative: General: Well-developed, well nourished, in no apparent distress Head: Normocephalic, atraumatic. Cardio: Regular rate and rhythm, s1 and s2 normal, no murmur appreciated. Resp: Clear to auscultation bilaterally, no rhonchi, rales, wheezing or rubs. Integumentary: [place], warm, and dry, stage 2- 3x3 cm open wound drainage yellow discharge to the anterior right lower extermity, ttp, with erythema, no induration or surround redness. Granulation tissue is present with very minimal slough tissue Course Course Emergency Course: Portions of this record may have been created with voice recognition software. Level of Care: Express Care Visit Vital Signs Vital signs: Vital Signs Temperature 36.7 C 03/02/25 09:56 Pulse Rate 102 H 03/02/25 09:56 Respiratory Rate 16 03/02/25 09:56 Blood Pressure 135/81 03/02/25 09:56 Pulse Oximetry 99 03/02/25 09:56 Oxygen Delivery Room Air 03/02/25 09:56 Temperature 36.7 C 03/02/25 09:56 Pulse Rate 102 H 03/02/25 09:56 Respiratory Rate 16 03/02/25 09:56 Blood Pressure 135/81 03/02/25 09:56 Pulse Oximetry 99 03/02/25 09:56 Oxygen Delivery Room Air 03/02/25 09:56 Vital signs reviewed MDM - Wound/Laceration MDM Narrative Medical decision making narrative: At the time of visit patient is resting comfortably on the exam table. Patient appears to be nontoxic. c/o wound to the right lower leg x 3.5 weeks. States it is becoming more painful and not healing. Developed the wound after having some tape on her skin. Wound is draining some yellow discharge and will bleed. Area is becoming more painful to touch and she feels like there is some heat coming from the wound. Denies any fever, chills, or body aches. No swelling of her legs. Denies any history of venous stasis ulcers. History of RA and gets infusions of Actemra monthly. No history of diabetes. On exam patient has a 3x3 cm open wound drainage yellow discharge to the anterior right lower extremity, ttp, with erythema, granulation tissue is present with very minimal slough tissue, no induration or surround redness. Plan: Patient has a stage 2-3 x 3 cm draining open wound to the right lower anterior leg. Wound culture was obtained and sent to the lab. Will send in prescription for cephalexin and mupirocin cream. Recommend follow-up with PCP next week for further evaluation/referral to wound care if needed. Supportive measures were discussed with the patient and they voiced understanding discharge instructions and agrees to treatment plan. Return precautions reviewed Differential Diagnosis Differential diagnosis: Likely abscess, abrasion and other (Open wound-stage II with infection) Discharge Plan Discharge Clinical Impression: Open wound of right lower extremity Qualifiers: Encounter type: initial encounter Qualified Code(s): S81.801A - Unspecified open wound, right lower leg, initial encounter Patient Disposition: Home Condition: Stable Instructions: Antibiotic Form, Wound Healing and Your Diet (ED) Additional Instructions: Keep area clean and dry Wash wound daily with soap and water and pat dry Apply mupirocin cream twice daily x7 days Take cephalexin as prescribed Wound culture was obtained and sent to the lab Follow-up with your PCP next week for further wound care instructions/or if needed wound care referral Patient Language: Marshallese Prescriptions: New cephalexin 500 mg capsule 500 mg PO Q8H 7 Days Qty: 21 0RF mupirocin [Centany] 2 % ointment 1 applic topical BID 7 Days Qty: 22 0RF No Action levothyroxine [Synthroid] 100 mcg tablet 100 mcg PO DAILY Linzess 290 mcg capsule 290 mcg PO DAILY PRN (Reason: Constipation) folic acid 1 mg tablet 1 mg PO DAILY diphenhydramine-acetaminophen [Tylenol PM Extra Strength] 25-500 mg tablet 2 tablet PO QHS Lumigan 0.01 % drops 1 drp EACH EYE HS prednisone 5 mg tablet 5 mg PO BID gabapentin 300 mg capsule 900 mg PO QHS gabapentin 100 mg capsule 100 mg PO BID methotrexate sodium 2.5 mg tablet 25 mg PO WEEKLY Patient Comments: Currently on HOLD Rx Instructions: administer on Tuesdays multivitamin Tablet 1 tablet PO DAILY alendronate [Fosamax] 70 mg tablet 70 mg PO WEEKLY Patient Comments: administer on Tuesdays Caltrate-D3 Plus Minerals 300 mg-800 unit -25 mg-0.5 mg tablet 1 tablet PO DAILY atorvastatin 20 mg tablet 40 mg PO QHS tramadol 100 mg tablet extended release 24 hr 200 mg PO TID PRN (Reason: pain 4-6) magnesium 250 mg tablet 250 mg PO BID Actemra 200 mg/10 mL (20 mg/mL) solution 200 mg IV Q28D Patient Comments: PATIENT IS NOT AWARE OF DOSAGE FOR THIS MED. Ubrelvy 100 mg tablet See Rx Instructions .ROUTE .COMPLEX Qty: 10 0RF Dose Instruction: TAKE 1 TABLET BY MOUTH ONCE DAILY A SINGLE DOSE, MAY REPEAT ONCE IN 2 HOURS OR LONGER AFTER FIRST DOSE IF NEEDED Rx Instructions: TAKE 1 TABLET BY MOUTH ONCE DAILY A SINGLE DOSE, MAY REPEAT ONCE IN 2 HOURS OR LONGER AFTER FIRST DOSE IF NEEDED sulfasalazine 500 mg tablet,delayed release (DR/EC) 1 g PO BID pantoprazole 40 mg tablet,delayed release (DR/EC) 40 mg PO BID Qty: 60 5RF losartan 50 mg Tablet 50 mg PO DAILY diclofenac sodium 75 mg tablet,delayed release (DR/EC) 75 mg PO BID cyclobenzaprine 10 mg PO TID PRN (Reason: Muscle Pain) cyclobenzaprine 10 mg tablet 10 mg PO HS dicyclomine 20 mg tablet 20 mg PO TID folic acid 1 mg tablet 1 mg PO DAILY aspirin 325 mg capsule 325 mg PO DAILY temazepam 15 mg capsule 30 mg PO QHS PRN (Reason: sleep) Qty: 60 0RF hydrocodone-acetaminophen 10-325 mg tablet 1 tablet PO Q8H PRN (Reason: pain (scale score 7-10)) Qty: 85 0RF Patient Comments: pt states takes 2 a day Follow-up/Referrals: Jeremy,Brian [place] MD [Primary Care Provider] Time of Disposition: 10:19 Quality NIHSS Nursing Documentation ED NIHSS nursing documentation: reviewed/agree
[2025-03-02 09:56] VITALS: BP 135/81; PULSE 102; RESP 16; TEMP 36.7; O2SAT 99
== END 2025-03-02 10:23 | disposition home or self-care (01) ==
PROVIDERS: Emergency Provider Nurse Practitioner Family; PCP Internal Medicine
DX: S81.801A Unspecified open wound, right lower leg, initial encounter (principal); X58.XXXA Exposure to other specified factors, initial encounter; M06.9 Rheumatoid arthritis, unspecified; G62.9 Polyneuropathy, unspecified; H40.9 Unspecified glaucoma; K21.9 Gastro-esophageal reflux disease without esophagitis; E78.00 Pure hypercholesterolemia, unspecified; H35.30 Unspecified macular degeneration; M19.90 Unspecified osteoarthritis, unspecified site; Z96.653 Presence of artificial knee joint, bilateral
CPT/HCPCS: 87070; 87205; 99213; G0463

== ENCOUNTER 2025-03-19 01:35 | Day surgery (SDC) | payer MEDICARE, SELFPAY ==
[2025-02-27 15:49] VITALS: BMI 20.9
--- OUTSIDE RECORDS SUMMARY | 2025-03-19 01:38 | XMS_ITS | Clinical Summary ---
Author Organization [facility] Address [address] [place] [address] Care Team Providers Care Automotive Services Manager Name Role Phone Brian Luna MD Primary [...] Encounters Date Type Department Care Team Description 02/07/2025 Telephone [facility] ([facility]) - [facility] Medicine ENT [facility] Advanced Medicine 11th [place] [address] [place] [address] Yudelka Travis [employer] Submission 01/25/2025 2:30 PM CDT Procedure visit [facility] Medicine Otolaryngology [address], [address] [place] [address] Sylvia Juan Au.D. Sensorineural hearing loss (SNHL) of left ear with unrestricted hearing of right ear (Primary Dx) 01/12/2025 2:43 PM CDT - 01/12/2025 11:59 PM CDT Hospital Encounter [facility] [address] [place] [address] Hearing loss, unspecified hearing loss type, unspecified laterality Discharge Disposition: Discharge to home or self care 01/12/2025 2:40 PM CDT - 01/12/2025 11:59 PM CDT Hospital Encounter [facility] MRI [address] [place] [address] Hearing loss, unspecified hearing loss type, unspecified laterality Discharge Disposition: Discharge to home or self care from Last 3 Months Immunizations Immunization Administration Dates Next Due Pneumococcal Conjugate PCV 13 12/06/2020 Pneumococcal Polysaccharide PPV23 03/01/2020 Surgical History Surgery Date Site/Laterality Comments TONSILLECTOMY 1968 Tonsillectomy TOTAL ABDOMINAL HYSTERECTOMY W/ BILATERAL SALPINGOOPHORECTOMY 1984 Hysterectomy, total abdominal, BSO KNEE ARTHROPLASTY 2009 [...] on file Legal Sex Female 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 Gender Identity Not on file Sexual Orientation Not on file Last Filed Vital Signs [...] 08/09/2023 12:41 PM CDT Plan of Treatment Upcoming Encounters Date Type Department Care Team (Latest Contact Info) Description 04/30/2025 9:45 AM HAND SAMPLE MAKER Hospital Encounter [facility] [address] [place] [address] Sony Ya MD [address] [place] [address] 04/30/2025 9:45 AM HAND SAMPLE MAKER - 04/30/2025 12:00 PM HAND SAMPLE MAKER Surgery [facility] [address] [place] [address] Sony Ya MD [address] [place], [place] [id number] IMPLANTATION COCHLEAR DEVICE UNILATERAL. [64974 (CPT )] Scheduled Procedures Name Priority Associated Diagnoses Date/Ti me IMPLANTATION COCHLEAR DEVICE UNILATERAL. Sensorineural hearing loss (SNHL) of both ears 04/30/2025 9:45 AM HAND SAMPLE MAKER Health Maintenance Due Date Last Done Comments Breast Cancer Screening-Mammogram 1955 Colon Cancer Screening-Colonoscopy 1955 Depression Screening 1955 Fall Risk Assessment 1955 Hepatitis C Screening 1955 DTaP/Tdap/Td Vaccine (1 - Tdap) 1966 Hepatitis B Screening 1973 Well Visit 65+ 2020 Covid-19 Vaccine (4 - 2024-2 6 season) 2024 08/19/2021, 11/14/2020, 10/17/2020 Influenza Vaccine (#1) 2024 , 01/19/2024, 02/02/2023, Additional history exists Pneumococcal vaccine 65+ (3 of 3 - PCV20 or PCV21) 03/01/2025 12/06/2020, 03/01/2020 Osteoporosis Screening-Bone Density Scan 08/02/2025 08/03/2023, 02/24/2021 Zoster Vaccine Completed 10/12/2023, 05/30/2023 Goals Goal Patient Goal Type Associated Problems Recent Progress Patient-Stated? Author Autogenerat ed Goal Care Plan Autogenerated Problem No Bel Beckwith, supervisor stone Procedure Name Priority Date/Time Associated Diagnosis Comments MRI INTERNAL AUDITORY CANAL INCL BRAIN W WO CONTRAST Schedule Routine, Read Routine (OP Routine) 01/12/2025 4:30 PM CDT Hearing loss, unspecified hearing loss type, unspecified laterality CT INTERNAL AUDITORY CANALS POSTERIOR FOSSA WO CONTRAST Schedule Routine, Read Routine (OP Routine) 01/12/2025 3:26 PM CDT Hearing loss, unspecified hearing loss type, unspecified laterality from Last 3 Months Results * MRI Internal Auditory Canal incl Brain W WO Contrast (01/12/2025 4:30 PM CDT) Anatomical Region Laterality Modality Head and Neck N/A Magnetic Resonan ce 01/12/2025 9:49 PM CDT Narrative 01/12/2025 10:09 PM CDT EXAM DESCRIPTION: MRI INTERNAL AUDITORY CANAL INCL BRAIN W WO CONTRAST REASON FOR STUDY: hearing loss left hearing loss. she woke up one day a few weeks ago with room spinning, vertigo and hearing loss on her left ear. No trauma no surgery TECHNIQUE: Multiplanar imaging includes non-contrasted T1, T2, FLAIR, gradient echo/susceptibility-weighted images, diffusion with ADC map and post gadolinium contrast sequences. Additional thin slice images with and without gadolinium contrast acquired in the posterior fossa. Images stored on PACS. CONTRAST TYPE/DOSE: 10mL of GADOTERATE MEGLUMINE 0.5 MMOL/ML INTRAVENOUS SOLUTION (SO) injected via intravenous COMPARISON: Head CT comparison 06/06/2024. FINDINGS: IAC's: No vestibular schwannoma. Normal cerebellopontine angles. CEREBRUM: Tiny amount of linear high signal along a cortex in the left parietal lobe suggesting old hemorrhage/hemosiderin deposition possibly posttraumatic or post ischemic. No hemorrhage, edema, or mass effect. No abnormal enhancement. No abnormality evaluation of gradient T2 weighted sequences identified to indicate hemosiderin or other chronic blood breakdown product. WHITE MATTER: Scattered foci of T2 hyperintensity in periventricular and subcortical white matter in keeping with microvascular change. POSTERIOR FOSSA: Lacunar infarct in the inferior right cerebellum. Associated T1 hyperintensity could indicate minimal methemoglobin. DIFFUSION IMAGING: No recent infarction. EXTRAAXIAL SPACES: No hemorrhage. No mass or abnormal enhancement. BRAIN VOLUME: Within normal limits for age. PITUITARY: Unremarkable. VASCULATURE: No flow disturbance identified. ORBITS: No masses. Globes normal. PARANASAL SINUSES AND MASTOIDS: Complete opacification of the left sphenoid sinus in keeping with possible developing mucocele. Mucus or fluid in the right sphenoid sinus. OTHER: No other significant finding. IMPRESSION: 1. No abnormality of the IAC's or CP angle cisterns. No enhancing lesion or abnormal enhancement. 2. Chronic lacunar infarct with likely hemosiderin deposition in the inferior right cerebellum. Linear T1 high signal in the left parietal cortex probably representing old hemorrhage or calcification. 3. Scattered microvascular change of periventricular white matter. 4. Complete opacification of the left sphenoid sinus in keeping with possible developing mucocele. Mucus or fluid in the right sphenoid sinus. Please correlate with clinical factors. THIS IS AN ELECTRONICALLY VERIFIED FINAL REPORT 01/12/2025 10:09 PM - Electronically signed by Cheryl ROBBINS T: Report ID: [id number] Reading Location: [id number] Procedure Note Veronica Ndiaye MD - 01/12/2025 EXAM DESCRIPTION: MRI INTERNAL AUDITORY CANAL INCL BRAIN W WO CONTRAST REASON FOR STUDY: hearing loss left hearing loss. she woke up one day a few weeks ago with roomspinning, vertigo and hearing loss on her left ear. No trauma no surgery TECHNIQUE: Multiplanar imaging includes non-contrasted T1, T2, FLAIR,gradient echo/susceptibility-weighted images, diffusion with ADC map and post gadolinium contrast sequences. Additional thin slice images with andwithout gadolinium contrast acquired in the posterior fossa. Images stored onStarvine. CONTRAST TYPE/DOSE: 10mL of GADOTERATE MEGLUMINE 0.5 MMOL/ML INTRAVENOUS SOLUTION (SO) injected via intravenous COMPARISON: Head CT comparison 06/06/2024. FINDINGS: IAC's: No vestibular schwannoma. Normal cerebellopontineangles. CEREBRUM: Tiny amount of linear high signal along a cortex in the left parietal lobe suggesting old hemorrhage/hemosiderin deposition possibly posttraumatic or post ischemic. No hemorrhage, edema, or mass effect. No abnormal enhancement. No abnormality evaluation of gradient T2 weighted sequences identified to indicate hemosiderin or other chronic bloodbreakdown product. WHITE MATTER: Scattered foci of T2 hyperintensity in periventricular and subcortical white matter in keeping with microvascular change. POSTERIOR FOSSA: Lacunar infarct in the inferior right cerebellum. Associated T1 hyperintensity could indicate minimal methemoglobin. DIFFUSION IMAGING: No recent infarction. EXTRAAXIAL SPACES: No hemorrhage. No mass or abnormal enhancement. BRAIN VOLUME: Within normal limits for age. PITUITARY: Unremarkable. VASCULATURE: No flow disturbance identified. ORBITS: No masses. Globes normal. PARANASAL SINUSES AND MASTOIDS: Complete opacification of the leftsphenoid sinus in keeping with possible developing mucocele. Mucus or fluid in the right sphenoid sinus. OTHER: No other significant finding. IMPRESSION: 1. No abnormality of the IAC's or CP angle cisterns. No enhancing lesionor abnormal enhancement. 2. Chronic lacunar infarct with likely hemosiderin deposition in the inferior right cerebellum. Linear T1 high signal in the left parietalcortex probably representing old hemorrhage or calcification. 3. Scattered microvascular change of periventricular white matter. 4. Complete opacification of the left sphenoid sinus in keeping with possible developing mucocele. Mucus or fluid in the right sphenoid sinus. Please correlate with clinical factors. THIS IS AN ELECTRONICALLY VERIFIED FINAL REPORT 01/12/2025 10:09 PM - Electronically signed by Cheryl Ndiaye M.D. T: Report ID: [id number] Reading Location: [place] [address] us Sony Ya MD IMG MRI PROCEDURES Final Re sult * CT Internal Auditory Canals Posterior Fossa WO Contrast (01/12/2025 3:26 PM CDT) Anatomical Region Laterality Modality Head and Neck N/A Computed Tomogra phy 01/12/2025 3:52 PM CDT Narrative 01/12/2025 4:21 PM CDT EXAM DESCRIPTION: CT INTERNAL AUDITORY CANALS POSTERIOR FOSSA WO CONTRAST REASON FOR STUDY: hearing loss hearing loss Dx: Hearing loss, unspecified hearing loss type, unspecified laterality H91.90 (ICD-10-CM) hearing loss hearing loss Dx: Hearing loss, unspecified hearing loss type, unspecified laterality no comparison TECHNIQUE: Noncontrast thin section axial images through the temporal bones and skull base were obtained and reviewed at bone windows and bone algorithm with coronal. Automated exposure control was used as a dose optimization technique for this examination. COMPARISON: No comparison. FINDINGS: RIGHT SIDE: EXTERNAL AUDITORY CANAL: Widely patent. TYMPANIC MEMBRANE: No masses, thickening or medial retraction. OSSICLES: Normal. MIDDLE EAR, EPITYMPANUM and HYPOTYMPANUM: No abnormal soft tissue, fluid or mass INNER EAR STRUCTURES: Normal vestibule and cochlea. Normal aqueducts. Normal semicircular canals. INTERNAL AUDITORY CANAL: Normal bony canal without narrowing or widening. No calcified or ossified masses. TEMPOROMANDIBULAR JOINT: Normal. MASTOID AIR CELLS: No fluid or mucosal thickening. LEFT SIDE: EXTERNAL AUDITORY CANAL: Widely patent. TYMPANIC MEMBRANE: No masses, thickening or medial retraction. OSSICLES: Normal. MIDDLE EAR, EPITYMPANUM and HYPOTYMPANUM: No abnormal soft tissue, fluid or mass INNER EAR STRUCTURES: Normal vestibule and cochlea. Normal aqueducts. Normal semicircular canals. INTERNAL AUDITORY CANAL: Normal bony canal without narrowing or widening. No calcified or ossified masses. TEMPOROMANDIBULAR JOINT: Normal. MASTOID AIR CELLS: No fluid or mucosal thickening. CENTRAL SKULL BASE: Normal foramina. No lytic or blastic lesions. INFERIOR BRAIN: Limited view. No acute findings. LIMITED VIEW OF PARANASAL SINUSES IN THE FIELD OF VIEW: There is globular opacification of the left sphenoid sinus. There is frothy mucous and an air-fluid level in the right sphenoid sinus. Bilateral sphenoid ostia appear patent. There is mild globular mucosal thickening along the left maxillary floor. OTHER: No other significant finding. IMPRESSION: 1. No definable abnormality of the mastoid temporal bones. 2. Significant paranasal sinus disease with air-fluid level in the right sphenoid sinus and frothy mucous in the left sphenoid sinus. Findings are in keeping with acute superimposed on chronic sinusitis. Please correlate with clinical factors. THIS IS AN ELECTRONICALLY VERIFIED FINAL REPORT 01/12/2025 4:21 PM - Electronically signed by Cheryl Ndiaye M.D. T: Report ID: [id number] Reading Location: [place] [address] Procedure Note Veronica Ndiaye MD - 01/12/2025 EXAM DESCRIPTION: CT INTERNAL AUDITORY CANALS POSTERIOR FOSSA WOCONTRAST REASON FOR STUDY: hearing loss hearing loss Dx: Hearing loss, unspecified hearing loss type,unspecified laterality H91.90 (ICD-10-CM) hearing loss hearing loss Dx: Hearing loss, unspecified hearing loss type,unspecified laterality no comparison TECHNIQUE: Noncontrast thin section axial images through the temporalbones and skull base were obtained and reviewed at bone windows and bonealgorithm with coronal. Automated exposure control was used as a dose optimization technique for this examination. COMPARISON: No comparison. FINDINGS: RIGHT SIDE: EXTERNAL AUDITORY CANAL: Widely patent. TYMPANIC MEMBRANE: No masses, thickening or medial retraction. OSSICLES: Normal. MIDDLE EAR, EPITYMPANUM and HYPOTYMPANUM: No abnormal soft tissue, fluidor mass INNER EAR STRUCTURES: Normal vestibule and cochlea. Normal aqueducts. Normal semicircular canals. INTERNAL AUDITORY CANAL: Normal bony canal without narrowing orwidening. No calcified or ossified masses. TEMPOROMANDIBULAR JOINT: Normal. MASTOID AIR CELLS: No fluid or mucosal thickening. LEFT SIDE: EXTERNAL AUDITORY CANAL: Widely patent. TYMPANIC MEMBRANE: No masses, thickening or medial retraction. OSSICLES: Normal. MIDDLE EAR, EPITYMPANUM and HYPOTYMPANUM: No abnormal soft tissue, fluidor mass INNER EAR STRUCTURES: Normal vestibule and cochlea. Normal aqueducts. Normal semicircular canals. INTERNAL AUDITORY CANAL: Normal bony canal without narrowing orwidening. No calcified or ossified masses. TEMPOROMANDIBULAR JOINT: Normal. MASTOID AIR CELLS: No fluid or mucosal thickening. CENTRAL SKULL BASE: Normal foramina. No lytic or blastic lesions. INFERIOR BRAIN: Limited view. No acute findings. LIMITED VIEW OF PARANASAL SINUSES IN THE FIELD OF VIEW: There isglobular opacification of the left sphenoid sinus. There is frothy mucous and an air-fluid level in the right sphenoid sinus. Bilateral sphenoid ostiaappear patent. There is mild globular mucosal thickening along the leftmaxillary floor. OTHER: No other significant finding. IMPRESSION: 1. No definable abnormality of the mastoid temporal bones. 2. Significant paranasal sinus disease with air-fluid level in the right sphenoid sinus and frothy mucous in the left sphenoid sinus. Findings arein keeping with acute superimposed on chronic sinusitis. Please correlatewith clinical factors. THIS IS AN ELECTRONICALLY VERIFIED FINAL REPORT 01/12/2025 4:21 PM - Electronically signed by Cheryl Ndiaye M.D. T: Report ID: [id number] Reading Location: [place] [address] us Sony Ya MD IMG CT PROCEDURES Final Res ult from Last 3 Months Additional Health Concerns Active Problems Noted Date Diagnosed Date Autogenerated Problem 02/22/2025 [place] [address] [employer] MEDICARE AET MEDICARE Advance Directives For more information, please contact: [phone] * Full Code (Latest Code Status on File) Date Activated Date Inactivated Comments 08/09/2023 12:42 PM 08/09/2023 6:04 PM Care Teams Automotive Services Manager Relationship Specialty Start Date End Date Brian Luna MD PCP - General 12/17/09
--- OUTSIDE RECORDS SUMMARY | 2025-03-19 01:38 | XMS_ITS | Clinical Summary ---
Author Organization [facility] Address [address] [place] [address] Care Team Providers Care Senior Marketing Associate Name Role Phone Brian Luna MD Primary Care Provider [phone] Ayaz Donald MD Unavailable [phone] Source Comments [facility],non-owned Affiliates and Associated Physician Practices is amultiple site organization consisting of ambulatory clinics and hospital sitesin [place], [place], [place] and [place]. This disclosure is being madepursuant to the Care Everywhere program and may not contain all information available regarding this patient. 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 Gender Identity Not on file Sexual Orientation [...] 2005 ZOSTER VACCINE (1 of 2) 2005 DEPRESSION SCREENING 04/19/2024 MEDICARE AWV CALENDAR YEAR 2024 COVID-19 VACCINE (1 - 2024-2 6 season) 2024 INFLUENZA VACCINE (#1) 2024 Respiratory Syncytial [...] patient's age to complete this topic Insurance [facility] Address: [facility] [id number] [place] [address] A[employer]NA MEDICARE ADV SELF PAY NO INSURANCE Member Subscriber Plan / Payer (Ef fective for All Dates) Name:Trent Frausto Member ID:Not on file Relation to Subscriber:Not on file Name:TRENT FRAUSTO Subscriber ID:Not on file (Home) Address: [address] [place] [address] Payer ID:Not on file Group ID:Not on file Type:Self Pay Address: [place], [place] AETNA MEDICARE ADV SELF PAY NO INSURANCE Member Subscriber Plan / Payer (Ef fective for All Dates) Name:Trent Frausto Member ID:Not on file Relation to Subscriber:Not on file Name:TRENT FRAUSTO Subscriber ID:Not on file (Home) Address: [address] [place] [address] [place] [address] Payer ID:Not on file Group ID:Not on file Type:Self Pay Address: [place], [place] Care Teams Senior Marketing Associate Relationship Specialty Start Date End Date Brian Luna MD [address] [place] [address] [address] [place] [address] PCP - General Internal Medicine 10/13/11 Ayaz Donald MD [address] [place] [phone] 10/28/11
[2025-03-19 08:03] VITALS: BP 134/78; PULSE 92; RESP 18; TEMP 36.1; O2SAT 99; BMI 22.6
[2025-03-19] MEDS: LACTATED RINGERS 1,000 ML 150 ML IV CONT (08:12)
--- NOTE | 2025-03-19 08:29 | WPDANESEPPF ---
Anes - Initial Pre Proc Eval Procedure: Operation Date: 03/19/25 09:30 Proposed Procedures p Esophagogastroduodenoscopy - Sacha Lind MD Date/Time: 03/19/25 08:29 Surgeon: Sacha Lind MD Pre Op Diagnosis: Gastric ulcer, unspecified as acute or chronic, wi Patient Data Age: 69 Gender: F Height: 1.6 m Weight: 57.8 kg Last Vital Signs Temp 36.1 C L 03/19/25 08:03 Pulse 92 03/19/25 08:03 Resp 18 03/19/25 08:03 BP 134/78 03/19/25 08:03 Pulse Ox 99 03/19/25 08:03 O2 Del Method Room Air 03/19/25 08:03 Allergies Allergy/AdvReac Type Severity Reaction Status Date / Time No Known Allergies Allergy Verified 03/19/25 07:59 Home Medications ?Medication ?Instructions ?Recorded ?Confirmed ?Type bimatoprost 0.01 % eye drops 1 drp EACH EYE HS 12/31/20 03/19/25 History (Lumigan) diphenhydramine 25 2 tablet PO QHS 12/31/20 03/19/25 History mg-acetaminophen 500 mg tablet (Tylenol PM Extra Strength) folic acid 1 mg tablet 1 mg PO DAILY 12/31/20 03/19/25 History levothyroxine 100 mcg tablet 100 mcg PO DAILY 12/31/20 03/19/25 History (Synthroid) linaclotide 290 mcg capsule 290 mcg PO DAILY PRN Constipation 12/31/20 03/19/25 History (Linzess) prednisone 5 mg tablet 5 mg PO BID 12/31/20 03/19/25 History temazepam 15 mg capsule 30 mg (2 x 15 mg) PO QHS PRN sleep 03/07/21 02/27/25 Rx #60 caps hydrocodone 10 mg-acetaminophen 1 tablet PO Q8H PRN pain (scale 03/25/21 03/19/25 Rx 325 mg tablet score 7-10) #85 tabs alendronate 70 mg tablet (Fosamax) 70 mg PO WEEKLY 07/02/21 03/19/25 History atorvastatin 20 mg tablet 40 mg PO QHS 07/02/21 03/19/25 History calcium 300 mg-D3 20 mcg-magnesium 1 tablet PO DAILY 07/02/21 03/19/25 History 25 mg-coppr 0.5 [id number] tablet (Caltrate-D3 Plus Minerals) gabapentin 100 mg capsule 100 mg PO BID 07/02/21 03/19/25 History gabapentin 300 mg capsule 900 mg PO QHS 07/02/21 03/19/25 History methotrexate sodium 2.5 mg tablet 25 mg PO WEEKLY 07/02/21 02/27/25 History multivitamin 1 tablet PO DAILY 07/02/21 03/19/25 History magnesium 250 mg tablet 250 mg PO BID 01/27/22 03/19/25 History tramadol 100 mg tablet,extended 200 mg PO TID PRN pain 4-6 01/27/22 02/27/25 History release 24 hr cyclobenzaprine 10 mg tablet 10 mg PO HS 01/17/24 03/19/25 History dicyclomine 20 mg tablet 20 mg PO TID 01/17/24 03/19/25 History cyclobenzaprine 10 mg PO TID PRN Muscle Pain 02/03/24 03/19/25 History diclofenac sodium 75 mg 75 mg PO BID 02/03/24 03/19/25 History tablet,delayed release losartan 50 mg tablet 50 mg PO DAILY 02/03/24 03/19/25 History tocilizumab 200 mg/10 mL (20 200 mg IV Q28D 09/13/24 02/27/25 History mg/mL) intravenous solution (Actemra) ubrogepant 100 mg tablet (Ubrelvy) See Rx Instructions .Route 09/13/24 02/27/25 Rx .COMPLEX #10 tabs sulfasalazine 500 mg 1 g PO BID 12/16/24 03/19/25 History tablet,delayed release pantoprazole 40 mg tablet,delayed 40 mg PO BID #60 tabs 12/17/24 03/19/25 Rx release aspirin 325 mg capsule 325 mg PO DAILY 02/27/25 03/19/25 History folic acid 1 mg tablet 1 mg PO DAILY 02/27/25 03/19/25 History cephalexin 500 mg capsule 500 mg PO Q8H 7 days #21 caps 03/02/25 03/19/25 Rx mupirocin 2 % topical ointment 1 applic topical BID 7 days #22 11/14/25 12/01/25 Rx (Centany) grams Patient hx anesthesia problems: none Family hx anesthesia problems: none Results Review: All pre-operative results and documents have been reviewed as part of the pre-operative evaluation. [facility] Past Medical History Medical History (Updated 03/19/25 @ 07:57 by Garrett Grajeda DO) Lupus Fibromyalgia Hypertension Hyperlipidemia CVA (cerebral vascular accident) Duodenal ulcer Chronic headache Chronic neck pain Peripheral neuropathy Colon cancer screening Common bile duct dilatation Abnormal CT scan Rheumatoid arthritis Right upper quadrant pain Acute rheumatic arthritis Glaucoma Larsen's neuroma left 2005 GERD (gastroesophageal reflux disease) High cholesterol Macular degeneration Osteoarthritis Surgical History Surgical History History of laparoscopy History of total left knee replacement (~11/12/21) Hx of breast reduction, elective 1995 H/O breast augmentation 1988 H/O total knee replacement left 2010/ right 2008 S/P cubital tunnel release S/P total abdominal hysterectomy (~04/19/00) ovarian cysts - BSO Family History Family History Father Heart disease Mother Heart disease Parkinson disease Sibling Diabetes mellitus Heart disease Hypertension History of open heart surgery Social History Social History Smoking status: Never smoker Second hand tobacco smoke exposure: Yes Alcohol intake: never Substance use: never Substance use type: does not use Lack of Transportation: No Lack of Food: Never True Current Housing: I Have Housing Concerned About Future Housing: No Difficulty Paying Gas/Electric Bills: No Difficulty Paying for Meds: No Currently Unemployed: No Education: High School Diploma/GED Difficulty w/ Childcare or Family Care: No Living arrangements: with family Additional living arrangements comments: spouse Occupation/Education: other Additional occupation/education comments: house / disability Gender identity (if verbalized by the patient): Female Sexual Orientation (if Verbalized by the Patient): Straight or Heterosexual Spiritual care concerns: No Anes - Eval Final PreProcedure Day of Procedure 03/19/25 08:29 Patient weight: normal Heart: regular rate and rhythm Lungs: clear to auscultation and normal air movement Airway: Mallampati scale class II Neurological: alert and oriented Last oral intake: >/= 8 hours ASA classification: III Emergent: no Anesthetic plan: proceed Anesthesia type and monitoring: general GIVS and standard monitoring Results Review: All pre-operative results and documents have been reviewed as part of the pre-operative evaluation. Informed Consent: The patient's anesthetic plan and its attendant risks and benefits were discussed with the patient/family/POA. Questions were solicited and answers provided to the satisfaction of the patient/family/POA.
--- NOTE | 2025-03-19 09:02 | PM.HPGS ---
History of Present Illness History of Present Illness Consent: Risks, benefits, and alternatives have been discussed and questions answered. Patient agrees to proceed with procedure. Chief complaint: Gastric ulcer, unspecified as acute or chronic, wi Narrative: Gasper Frausto is a 69 year old female with post-pyloricl ulcer 11/2024 here to assess healing on ppi, she was taking nsaid's Review of Systems Review of Systems: All systems reviewed & are unremarkable except as noted in HPI and below PMFSH Past Medical History Medical History (Updated 03/19/25 @ 09:04 by Sacha Lind MD) PUD (peptic ulcer disease) Lupus Fibromyalgia Hypertension Hyperlipidemia CVA (cerebral vascular accident) Duodenal ulcer Chronic headache Chronic neck pain Peripheral neuropathy Colon cancer screening Common bile duct dilatation Abnormal CT scan Rheumatoid arthritis Right upper quadrant pain Acute rheumatic arthritis Glaucoma Larsen's neuroma left 2005 GERD (gastroesophageal reflux disease) High cholesterol Macular degeneration Osteoarthritis Surgical History Surgical History History of laparoscopy History of total left knee replacement (~11/12/21) Hx of breast reduction, elective 1995 H/O breast augmentation 1988 H/O total knee replacement left 2010/ right 2008 S/P cubital tunnel release S/P total abdominal hysterectomy (~04/19/00) ovarian cysts - BSO Family History Family History Father Heart disease Mother Heart disease Parkinson disease Sibling Diabetes mellitus Heart disease Hypertension History of open heart surgery Social History Social History Smoking status: Never smoker Second hand tobacco smoke exposure: Yes Alcohol intake: never Substance use: never Substance use type: does not use Lack of Transportation: No Lack of Food: Never True Current Housing: I Have Housing Concerned About Future Housing: No Difficulty Paying Gas/Electric Bills: No Difficulty Paying for Meds: No Currently Unemployed: No Education: High School Diploma/GED Difficulty w/ Childcare or Family Care: No Living arrangements: with family Additional living arrangements comments: spouse Occupation/Education: other Additional occupation/education comments: house / disability Gender identity (if verbalized by the patient): Female Sexual Orientation (if Verbalized by the Patient): Straight or Heterosexual Spiritual care concerns: No Meds Home Medications and Allergies Home Medications ?Medication ?Instructions ?Recorded ?Confirmed ?Type bimatoprost 0.01 % eye drops 1 drp EACH EYE HS 12/31/20 03/19/25 History (Lumigan) diphenhydramine 25 2 tablet PO QHS 12/31/20 03/19/25 History mg-acetaminophen 500 mg tablet (Tylenol PM Extra Strength) folic acid 1 mg tablet 1 mg PO DAILY 12/31/20 03/19/25 History levothyroxine 100 mcg tablet 100 mcg PO DAILY 12/31/20 03/19/25 History (Synthroid) linaclotide 290 mcg capsule 290 mcg PO DAILY PRN Constipation 12/31/20 03/19/25 History (Linzess) prednisone 5 mg tablet 5 mg PO BID 12/31/20 03/19/25 History temazepam 15 mg capsule 30 mg (2 x 15 mg) PO QHS PRN sleep 03/07/21 02/27/25 Rx #60 caps hydrocodone 10 mg-acetaminophen 1 tablet PO Q8H PRN pain (scale 03/25/21 03/19/25 Rx 325 mg tablet score 7-10) #85 tabs alendronate 70 mg tablet (Fosamax) 70 mg PO WEEKLY 07/02/21 03/19/25 History atorvastatin 20 mg tablet 40 mg PO QHS 07/02/21 03/19/25 History calcium 300 mg-D3 20 mcg-magnesium 1 tablet PO DAILY 07/02/21 03/19/25 History 25 mg-coppr 0.5 [id number] tablet (Caltrate-D3 Plus Minerals) gabapentin 100 mg capsule 100 mg PO BID 07/02/21 03/19/25 History gabapentin 300 mg capsule 900 mg PO QHS 07/02/21 03/19/25 History methotrexate sodium 2.5 mg tablet 25 mg PO WEEKLY 07/02/21 02/27/25 History multivitamin 1 tablet PO DAILY 07/02/21 03/19/25 History magnesium 250 mg tablet 250 mg PO BID 01/27/22 03/19/25 History tramadol 100 mg tablet,extended 200 mg PO TID PRN pain 4-6 01/27/22 02/27/25 History release 24 hr cyclobenzaprine 10 mg tablet 10 mg PO HS 01/17/24 03/19/25 History dicyclomine 20 mg tablet 20 mg PO TID 01/17/24 03/19/25 History cyclobenzaprine 10 mg PO TID PRN Muscle Pain 02/03/24 03/19/25 History diclofenac sodium 75 mg 75 mg PO BID 02/03/24 03/19/25 History tablet,delayed release losartan 50 mg tablet 50 mg PO DAILY 02/03/24 03/19/25 History tocilizumab 200 mg/10 mL (20 200 mg IV Q28D 09/13/24 02/27/25 History mg/mL) intravenous solution (Actemra) ubrogepant 100 mg tablet (Ubrelvy) See Rx Instructions .Route 09/13/24 02/27/25 Rx .COMPLEX #10 tabs sulfasalazine 500 mg 1 g PO BID 12/16/24 03/19/25 History tablet,delayed release pantoprazole 40 mg tablet,delayed 40 mg PO BID #60 tabs 12/17/24 03/19/25 Rx release aspirin 325 mg capsule 325 mg PO DAILY 02/27/25 03/19/25 History folic acid 1 mg tablet 1 mg PO DAILY 02/27/25 03/19/25 History cephalexin 500 mg capsule 500 mg PO Q8H 7 days #21 caps 03/02/25 03/19/25 Rx mupirocin 2 % topical ointment 1 applic topical BID 7 days #22 03/02/25 03/19/25 Rx (Centany) grams Allergies Allergy/AdvReac Type Severity Reaction Status Date / Time No Known Allergies Allergy Verified 03/19/25 07:59 Vital Signs Vital Signs - 24 hr 03/19/25 08:03 Temperature 97 F L Pulse Rate 92 Respiratory Rate 18 Blood Pressure 134/78 Pulse Oximetry 99 Oxygen Delivery Room Air Exam Const: General: comfortable and no acute distress HENMT: Face/Nose/Sinus: Normal nares present Eyes: General: appearance normal, both eyes and all related structures Neck: Neck: no JVD Resp: Auscultation: clear to auscultation bilaterally Cardio: Rate: regular rate Rhythm: regular rhythm GI: Inspection: non-distended GI Palp: Yes Soft to palpation Skin: General skin exam: normal color Extrem: General: normal to inspection Psych: Mental Status: mental status grossly normal Assessment and Plan Assessment and plan (1) PUD (peptic ulcer disease): Code(s): K27.9 - Peptic ulcer, site unspecified, unspecified as acute or chronic, without hemorrhage or perforation Status: Acute Assessment and Plan: egd to assess healing taking ppi
--- NOTE | 2025-03-19 09:12 | S_PTH ---
PATIENT: Gasper Frausto LOC: [facility]#:[id number] AGE/SX: 69/F ROOM: RE03/19/[address]: Sacha Lind MD : [id number] BED: DIS: 03/19/2025 SPEC #: [id number] RECD: 03/19/25 11:02 STATUS: MEDINA REKayleen #: [id number] LIANA: 03/19/25 09:[address]: Sacha Lind DEPT: [facility] Surgical RECD BY: Shannon Daniel ENTERED: 03/19/25 11:02 SP TYPE: Surgical OTHR DR: Brian uLna, Tissues: A - Biopsy Procedures: Francois Keratin Hematoxylin and Eosin Stain Gross and Microscopic Level 4 H.Pylori
[2025-03-19 09:18] VITALS: BP 132/77; PULSE 86; RESP 23; O2SAT 94
[2025-03-19 09:28] VITALS: BP 123/79; PULSE 84; RESP 20; O2SAT 99
[2025-03-19 09:38] VITALS: BP 137/81; PULSE 75; RESP 23; O2SAT 100
== END 2025-03-19 09:46 | disposition home or self-care (01) ==
PROVIDERS: PCP Internal Medicine; Referring Provider Internal Medicine Gastroenterology; Visit Provider Internal Medicine Gastroenterology
PROC: 0DJ08ZZ Inspection of Upper Intestinal Tract, Via Natural or Artificial Opening Endoscopic (ICD-10-PCS; CPT 43239; principal; 2025-03-19 09:30)
DX: K26.9 Duodenal ulcer, unspecified as acute or chronic, without hemorrhage or perforation (principal); K31.1 Adult hypertrophic pyloric stenosis
CPT/HCPCS: 43239; 43245; 88305; 88342; C1726; J2003; J2704; J7120